=== PATIENT | female | born 1950 | race Caucasian/White ===

== ENCOUNTER 2024-03-03 08:57 | Inpatient (IN) ==
[2024-03-03 09:21] LABS: Basophils # (auto) 0.03 K/uL (0.00-0.20); Basophils % (auto) 0.4 %; Eosinophils # (auto) 0.32 K/uL (0.00-0.50); Eosinophils % (auto) 4.7 %; Hematocrit (blood only) 33.5 % (37.0-47.0); Hemoglobin 10.1 g/dl (12.0-16.0); Immature Granulocytes # (auto) 0.02 K/uL (0.01-0.20); Immature Granulocytes % (auto) 0.3 %; Lymphocytes # (auto) 1.62 K/uL (1.20-3.40); Lymphocytes % (auto) 23.8 %; Mean Corpuscular Hemoglobin 24.8 pg (25.0-34.0); Mean Corpuscular Hgb Conc 30.1 g/dL (32.0-36.0); Mean Corpuscular Volume 82.1 fL (80.0-100.0); Mean Platelet Volume 10.3 fL (9.4-12.4); Monocytes % (auto) 7.3 %; Neutrophils # (auto) 4.32 K/uL (1.40-6.50); Neutrophils % (auto) 63.5 %; Platelet Count 319 K/uL (130-400); RDW Coefficient of Variation 15.4 % (11.5-14.5); Red Blood Count 4.08 M/uL (4.20-5.40); White Blood Count 6.81 K/ul (4.8-10.8)
--- NOTE | 2024-03-03 09:28 | Emergency Department Note ---
Impression & Plan Unwitnessed fall, Recurrent falls, Compression fracture of T4 vertebra, Lower extremity edema ED Provider Note NAME: SWAPNIL HU AGE: 73 SEX: F : 1950 ARRIVES VIA: Ambulance INFORMANT: Patient ED PROVIDER(S): Ed Strickland MD CHIEF COMPLAINT: Recurrent falls, back pain PLAN: Disposition: Admit MEDICAL DECISION MAKING: The patient is a pleasant 73-year-old woman with a past medical history of hypertension, anxiety, chronic back pain/lumbar spinal stenosis, scoliosis of the thoracolumbar region, recurrent falls who presents to emergency department via EMS from her independent living facility after she was found on the ground outside of the shared laundry facilities this morning by another resident. Patient reports she recalls going to do laundry around 3 AM which is not atypical for her and wonders if her back pain flared causing her to collapse. She does not think she hit her head. She reports she has a history of recurrent falls for which she has followed up with with her PCP and had an MRI of her brain performed which demonstrated incidental meningioma but to her knowledge otherwise showed no acute findings. Patient reports no recent illness and denies fevers, chills, cough, congestion, GI or symptoms. On evaluation the patient is no distress, afebrile with stable vital signs. She appears clinically dry. She has no focal neurologic deficits. Head is atraumatic. She has no midline CTL spine tenderness palpation or step-offs though reports subjectively pain of her lower thoracic and lumbar region. Reflex within normal limits. There is no clonus. 1+ bilateral lower extremity edema. EKG without overt acute ischemia. CXR with vascular congestion and otherwise negative for acute cardiopulmonary process per my personal preliminary review/interpretation. WBC and platelets within normal limits. H/H similar to prior range values. Chemistry without metabolic acidosis. BUNs/creatinine is 29, consistent with patient's clinically dry appearance. LFTs unremarkable. CPK within normal limits. High-sensitivity troponin 9.0, within normal limits. Lipase is mildly above normal and nonspecific. TSH normal. UA without evidence of infection. CT of the head and CT of the head and neck and were negative for acute abnormalities. CT of the thoracic and lumbar spine demonstrates compression fracture of the superior endplate of T4 with 40% loss of height which appears new from December 02 but favor subacute fracture. There is no retropulsion or extension into the posterior elements. Given patient's recurrent falls and chronic back pain patient referred to hospitalist service for further management. Case was discussed with Dr. Boyer, [facility] hospitalist, who will evaluate the patient for admission. Further management per admitting team. Triage Nursing notes reviewed and agree them. Prior/external medical records reviewed Vital Signs: reviewed Differential diagnosis: Fracture, dislocation, contusion, intra-abdominal, pneumothorax, intrathoracic, intracranial, neurologic, compartment syndrome, rhabdomyolysis, as well as other pathologies. ER treatment provided: See below. Diagnostics interpreted by me: ECG: Normal sinus rhythm, 80 bpm, no ectopy, no overt ST ovation or depression, QTc 442, QRS 70. Cardiac Monitoring: An order for continuous cardiac monitoring was placed and demonstrated Normal sinus rhythm, 80 bpm, no ectopy Laboratory studies: See below Imaging studies: See below Consultation(s): Case was discussed with CYNTHIA Jackson hospitalist, who will evaluate the patient for admission. HPI: The patient is a pleasant 73-year-old woman with a past medical history of hypertension, anxiety, chronic back pain/lumbar spinal stenosis, scoliosis of the thoracolumbar region, recurrent falls who presents to emergency department via EMS from her independent living facility after she was found on the ground outside of the shared laundry facilities this morning by another resident. Patient reports she recalls going to do laundry around 3 AM which is not atypical for her and wonders if her back pain flared causing her to collapse. She does not think she hit her head. She reports she has a history of recurrent falls for which she has followed up with with her PCP and had an MRI of her brain performed which demonstrated incidental meningioma but to her knowledge otherwise showed no acute findings. Patient reports no recent illness and denies fevers, chills, cough, congestion, GI or symptoms. ROS: See above HPI for pertinent positives & negatives. A total of 10 systems reviewed and were otherwise negative. VITALS:See Below PHYSICAL EXAMINATION: GENERAL: Awake, alert, fatigued-appearing, in no distress HENT: Normocephalic, atraumatic. Oropharynx with dry mucous membranes and otherwise unremarkable. EYES: Normal conjunctiva. Sclera non-icteric. EOMI. No nystamgus. PEARRL. NECK: Supple. No nuchal rigidity. FROM. No JVD. No midline tenderness to palpation or step-offs. RESPIRATORY: Clear to auscultation. CARDIAC: Regular rate, normal rhythm. Extremities warm and well perfused. Pulses equal. ABDOMEN: Soft, non-distended. No tenderness to palpation. No rebound or guarding. No masses. MUSCULOSKELETAL: Chest examination reveals no tenderness. The back is symmetrical on inspection without obvious abnormality. No midline tenderness to palpation or step-offs. Subjective pain of the lower thoracic, lumbar region. There is no CVA tenderness to palpation. No joint edema. LOWER EXTREMITIES: Calves are equal size bilaterally and non-tender. No edema. No discoloration. NEURO: Normal sensorium. No sensory or motor deficits noted. SKIN: No rash or jaundice noted. Ed Strickland MD Past Med/Surg History Problem List (Updated 03/03/24 @ 21:17 by Ed Strickland MD) Unwitnessed fall (Acute) Weakness Compression fracture of T4 vertebra (Acute) Syncope Left leg cellulitis Anemia Recurrent falls (Acute) Orbital floor (blow-out) closed fracture Fracture of nasal bone with routine healing Back problem Arthritis Left elbow pain Scoliosis of thoracolumbar region due to degenerative disease of spine in adult Degenerative spondylolisthesis Lumbar spinal stenosis Neck Pain Lower extremity edema (Acute) Hypertension Anxiety and depression Back pain Medical History Kidney infection Bronchitis Surgical History H/O wrist surgery 2021 History of surgery on left wrist History of tubal ligation 1978 History of section 1982 History of tonsillectomy and adenoidectomy 1955 Family History Uncle Lung cancer Aunt Breast cancer Other COPD (chronic obstructive pulmonary disease) Denies family history of Ovarian cancer Prostate cancer Diabetes Myocardial infarction Colorectal cancer Stroke Social History Smoking Status: Current every day smoker Tobacco Type: Cigarettes Age Started Using Tobacco: 16; packs per day: 0.50; Cigarettes Per Day: 5; Second Hand Exposure: Yes; Do You Dip or Chew Tobacco: No; Tobacco Cessation Education Requested by Patient: No Hx Alcohol Use: Yes Alcohol type: beer and hard liquor Alcohol Intake Frequency: 2-3 x/Week Hx Substance Use: No Preferred Language: Niuean Communication Ability: Effective Visual Impairment: No Limitations Hearing Ability: Normal Crosstie Inspector Required: No Beliefs That Will Affect Care: None marital status: / Current Living Situation: Personal Care Facility Current Living Situation Comment: [facility] current occupational status: retired Other Information That Helps Us Care for You: No Feels Safe at Home: Yes Safety Concerns: Feels Safe At This Time Safety Concerns Comment: does not feel safe at her building due safety risks/fell on the ice Childhood Exposure to Second-Hand Smoke: No Diet: low salt and regular caffeine: No Dental Care, Regularly: No Physical Activity Frequency: Does not Exercise Seatbelt Use: always Sunscreen Use: No Allergies Allergies Allergy/AdvReac Type Severity Reaction Status Date / Time Sulfa (Sulfonamide Allergy Intermediate BUMPS ON Verified 01/25/24 13:36 Antibiotics) TONGUE hydrocodone AdvReac Intermediate Vomiting Verified 01/25/24 13:36 Home Meds Home Medications Medication Instructions Recorded Confirmed [id number] 250 1 tab PO UD 05/23/21 03/03/24 mg-250 mg-65 mg tablet (Excedrin Extra Strength) multivitamin (Multiple Vitamins 1 tab PO DAILY 04/01/22 03/03/24 tablet) naproxen sodium 220 mg tablet 220 - 440 mg PO BID PRN Pain 12/04/23 03/03/24 (Aleve) Previous Rx's Medication Instructions Recorded compr.stocking,knee,long,small #12 ea 04/01/22 paroxetine HCl 40 mg tablet 40 mg PO DAILY 90 days #90 tabs 11/30/23 bumetanide 0.5 mg tablet 0.5 mg PO DAILY PRN lower 12/19/23 extremity edema #30 tabs Results & Data (ED) Vital Signs Vital Signs - 24 hr 03/03/24 08:48 03/03/24 08:50 03/03/24 08:50 Temperature 36.8 C 36.8 C Temperature Source Oral Oral Pulse Rate 86 Pulse Rate [Apical] Respiratory Rate 16 Blood Pressure 146/94 H Blood Pressure [Left Arm] Blood Pressure Mean 111 Blood Pressure Mean [Left Arm] Pulse Oximetry 94 Oxygen Delivery Method Room Air Room Air Oxygen Flow Rate Sepsis Recent Fever Within 48 Hours No Sepsis New/Unexplained Change in Mental Status N/A Sepsis Action Taken by Nursing No Action Required 03/03/24 09:06 03/03/24 09:24 03/03/24 11:00 Temperature Temperature Source Pulse Rate 80 Pulse Rate [Apical] 63 Respiratory Rate 18 Blood Pressure Blood Pressure [Left Arm] 146/86 H Blood Pressure Mean Blood Pressure Mean [Left Arm] 106 Pulse Oximetry 92 96 Oxygen Delivery Method Nasal Cannula Oxygen Flow Rate 2 Sepsis Recent Fever Within 48 Hours Sepsis New/Unexplained Change in Mental Status Sepsis Action Taken by Nursing Laboratory Data 03/03/24 09:00 03/03/24 09:00 Lab Results 03/03/24 03/03/24 Range/Units 09:00 09:48 WBC 6.81 (4.8-10.8) K/ul RBC 4.08 L (4.20-5.40) M/uL Hgb 10.1 L (12.0-16.0) g/dl Hct 33.5 L (37.0-47.0) % MCV 82.1 (80.0-100.0) fL MCH 24.8 L (25.0-34.0) pg MCHC 30.1 L (32.0-36.0) g/dL RDW Std Deviation 46.0 (36.4-46.3) fL RDW Coeff of Dunia 15.4 H (11.5-14.5) % Plt Count 319 (130-400) K/uL MPV 10.3 (9.4-12.4) fL Immature Gran % (Auto) 0.3 % Neut % (Auto) 63.5 % Lymph % (Auto) 23.8 % [place] % (Auto) 7.3 % Eos % (Auto) 4.7 % Baso % (Auto) 0.4 % Neut # (Auto) 4.32 (1.40-6.50) K/uL Lymph # (Auto) 1.62 (1.20-3.40) K/uL [place] # (Auto) 0.50 (0.11-0.59) K/uL Eos # (Auto) 0.32 (0.00-0.50) K/uL Baso # (Auto) 0.03 (0.00-0.20) K/uL Immature Gran # (Auto) 0.02 (0.01-0.20) K/uL PT 10.3 (9.0-12.0) Seconds INR 0.9 (0.9-1.1) Sodium 142 (136-145) mmol/L Potassium 4.0 (3.5-5.1) mmol/L Chloride 109 H (98-107) mmol/L Carbon Dioxide 26 (21-32) mmol/L Anion Gap 7 (3-11) BUN 19 (6-23) mg/dl Creatinine 0.64 (0.6-1.2) mg/dl Est Cr Clr Drug Dosing 61.5 ml/min eGFR 92.10 BUN/Creatinine Ratio 29.7 H (10-20) Glucose 94 (70-99(Fasting)) mg/dl Calcium 9.1 (8.6-10.3) mg/dl Phosphorus 4.6 (2.5-4.9) mg/dl Magnesium 2.1 (1.7-2.4) mg/dl Total Bilirubin 0.3 (0.2-1.0) mg/dl AST 19 (13-39) U/L ALT 17 (7-52) U/L Alkaline Phosphatase 108 H (34-104) U/L Total Creatine Kinase 130 (26-192) U/L Troponin I High Sens 9.0 (0-14) pg/ml Total Protein 6.5 (6.0-8.3) gm/dl Albumin 3.8 (3.4-5.0) gm/dl Globulin 2.7 (2.5-4.0) gm/dl Albumin/Globulin Ratio 1.4 (0.9-2) Lipase 100 H (11-82) U/L TSH 0.610 (0.300-4.500) uIu/ml Urine Color Yellow Urine Appearance Clear (Clear) Urine pH 6.0 (4.5-7.5) Ur Specific [place] 1.020 (1.000-1.030) Urine Protein Negative (Negative) Urine Glucose (UA) Negative (Negative) Urine Ketones Negative (Negative) Urine Blood Negative (Negative) Urine Nitrite Negative (Negative) Urine Bilirubin Negative (Negative) Urine Urobilinogen Negative (Negative) Ur Leukocyte Esterase Negative (Negative) Administered Medications Acetaminophen (Acetaminophen 325 Mg Tab) 650 mg PO Q4H PRN PRN Reason: Pain or Fever Stop: 04/02/24 14:26 Last Admin: 03/03/24 20:22 Dose: 650 mg Documented By: ZO Paroxetine HCl (Paroxetine Hcl 20 Mg Tab) 40 mg PO HS NEHEMIAS Stop: 04/02/24 20:59 Last Admin: 03/03/24 20:22 Dose: 40 mg Documented By: ZO Discontinued Medications Sodium Chloride (Nss) 500 mls @ 999 mls/hr IV .Q31M ONE Stop: 03/03/24 09:54 Last Infusion: 03/03/24 10:23 Dose: Infused Documented By: Admin: 03/03/24 09:33 Dose: 999 mls/hr Documented By: DANA Acetaminophen (Ofirmev) 1,000 mg in 100 mls @ 400 mls/hr IV NOW STA Stop: 03/03/24 09:38 Last Infusion: 03/03/24 09:48 Dose: Infused Documented By: Admin: 03/03/24 09:33 Dose: 400 mls/hr Documented By: DANA Ioversol (Optiray 320 125ml) 119 ml IV ONCE ONE Stop: 03/03/24 10:22 Last Admin: 03/03/24 10:21 Dose: 119 ml Documented By: BARRON Imaging Data Radiologist's Impression: Chest X-Ray 03/03/24 09:06 XR chest 1V portable CLINICAL HISTORY: Chest pain, nonspecific COMPARISON STUDY: Chest CT December 03, 2023. FINDINGS: The patient is rotated. No pneumothorax or pleural effusion is present. There is pulmonary vascular congestion. No consolidation is present. Linear bibasilar densities favor atelectasis. The heart is at the upper limits of normal for size. IMPRESSION: 1. Pulmonary vascular congestion. 2. Linear bibasilar densities suggestive of atelectasis. ACT 112: Negative or not required by law. Electronically signed by: Miller Napier M.D. 03/03/2024 9:[address] 03/03/24 09:19 CT OF THE HEAD WITHOUT CONTRAST CLINICAL HISTORY: Syncope. Fall. COMPARISON STUDY: Head CT May 17, 2023. MRI of the brain January 23, 2024. CT DOSE: 1682.89 mGy.cm TECHNIQUE: Helical axial images of the head were obtained without IV contrast. Automated exposure control was utilized for the study. A dose lowering technique was utilized adhering to the principles of ALARA. FINDINGS: No acute intracranial hemorrhage, midline shift or mass effect is present. White matter hypodensities are unchanged and favor small vessel disease. A densely calcified 1.5 cm extra-axial lesion overlying the left frontal convexity is unchanged. This represents a meningioma. The ventricular system is unremarkable. The basal cisterns are patent. No extra-axial collections are present. There are no findings to suggest acute dural sinus thrombosis or acute territorial infarct. No significant calvarial abnormalities are present. Visualized portions of the sinuses and mastoid air cells are clear. IMPRESSION: 1. No acute intracranial findings. 2. No calvarial fractures. ACT 112: Negative or not required by law. Electronically signed by: Miller Napier M.D. 03/03/2024 10:21 AM Head CTA 03/03/24 09:24 CTA ANGIOGRAPHY OF THE HEAD CLINICAL HISTORY: syncope, fall COMPARISON STUDY: Head CT May 17, 2023. MRI of the brain January 23, 2024. TECHNIQUE: Helical axial images of the head were obtained following uneventful intravenous administration of 119 cc of Optiray. Sagittal and coronal reconstructions were viewed as well as maximal intensity projections on an independent 3-D workstation. Automated exposure control was utilized for the study. A dose lowering technique was utilized adhering to the principles of ALARA. FINDINGS: No acute intracranial hemorrhage, midline shift or mass effect is present. Ventricular system is unremarkable. White matter hypodensities favor small vessel disease. The bilateral M1, M2, A1 and A2 segments are patent. No vessel occlusion is identified within the anterior circulation. There is mild plaque within the bilateral cavernous carotids without stenosis. Posterior circulation is also intact. There is no intracranial aneurysm. IMPRESSION: No large vessel occlusion. No intracranial aneurysm. ACT 112: Negative or not required by law. Electronically signed by: Miller Napier M.D. 03/03/2024 10:[address] 03/03/24 09:24 CT OF THE LUMBAR SPINE CLINICAL HISTORY: syncope, fall, pain COMPARISON STUDY: Lumbar spine radiographs May 13, 2022. Lumbar spine MRI November 18, 2022. TECHNIQUE: Helical axial images of the lumbar spine were obtained. Sagittal and coronal reconstructions were viewed. Automated exposure control was utilized for the study. A dose lowering technique was utilized adhering to the principles of ALARA. FINDINGS: This exam is mildly compromised by artifact. No acute lumbar spine fractures are identified. Moderate lumbar spine dextroscoliosis is noted. There is 1.1 cm of anterolisthesis of L4 and L5 due to to facet arthrosis. This results in severe central canal stenosis, as shown on MRI of November 18, 2022. Central canal and neural foramen are suboptimally assessed given CT technique. There are no osseous lesions. Sacroiliac joints are intact. Paravertebral soft tissues are grossly unremarkable by CT. Severe multilevel facet arthrosis and moderate degenerative disc disease is present. IMPRESSION: 1. No acute lumbar spine fracture or subluxation. Exam mildly compromised by artifact. 2. Severe multilevel degenerative changes within the lumbar spine. Grade II anterolisthesis of L4 and L5 due to facet arthrosis with severe central canal stenosis at this level, as shown on previous MRI. 3. Moderate lumbar spine dextroscoliosis. ACT 112: Negative or not required by law. Electronically signed by: Miller Napier M.D. 03/03/2024 10:45 AM Neck CTA 03/03/24 09:24 CT ANGIOGRAPHY OF THE NECK WITH CONTRAST CLINICAL HISTORY: syncope, fall COMPARISON STUDY: Cervical spine MRI November 18, 2022. Cervical spine CT May 17, 2023. Technique: CT angiography of the carotid and vertebral arteries was obtained using Optir[employer] and 3D reconstruction on an independent workstation. NASCET criteria was utilized. Automated exposure control was utilized for the study. A dose lowering technique was utilized adhering to the principles of ALARA. Findings: There are no acute cervical spine fractures. Multilevel degenerative disc disease and facet arthrosis within the cervical spine is noted. There is 40 % loss of vertebral body of T4, involving the superior endplate. This is new since chest CT of December 03, 2023. Associated sclerosis is present. No extension into the posterior elements is noted. There is no retropulsion. The bilateral common carotid, cervical internal carotid and vertebral arteries are patent. There is no stenosis or dissection within these vessels. There is moderate atherosclerotic plaque within the aortic arch. There is mild plaque within the proximal bilateral cervical internal carotid arteries. There is moderate extrinsic narrowing of the left vertebral artery due to osteophytes. IMPRESSION: 1. No stenosis or dissection within the bilateral common carotid, cervical internal carotid or vertebral arteries. 2. No cervical spine fractures. 3. Compression fracture of T4 with 40% loss of vertebral body height. This is new since CT of December 03, 2023. This likely reflects a subacute fracture although an acute fracture could appear similar. No retropulsion. No extension into the posterior elements. ACT 112: Negative or not required by law. Electronically signed by: Miller Napier M.D. 03/03/2024 10:[address] 03/03/24 09:24 CT OF THE THORACIC SPINE CLINICAL HISTORY: syncope, fall, pain COMPARISON STUDY: Chest CT December 03, 2023. TECHNIQUE: Helical axial images of the thoracic spine were obtained. Sagittal and coronal reconstructions were viewed. Automated exposure control was utilized for the study. A dose lowering technique was utilized adhering to the principles of ALARA. FINDINGS: A compression fracture of the superior plate of T4 is new since chest CT of December 13, 2023. This 40% loss of vertebral body height. There is no retropulsion or extension into the posterior elements. No additional thoracic spine fractures are present. Moderate multilevel degenerative disc disease is present. There are no osseous lesions. Emphysema is incidentally noted within visualized portions of the lungs. IMPRESSION: 1. Compression fracture of the superior endplate of T4 40% loss of vertebral body height. This is new since CT of December 03, 2023. No retropulsion. No extension into the posterior elements. The appearance favors a subacute fracture although an acute fracture could appear similar. 2. No additional thoracic spine fractures. 3. Moderate multilevel degenerative changes within the thoracic spine. ACT 112: Negative or not required by law. Electronically signed by: Miller Napier M.D. 03/03/2024 10:40 AM Discharge Plan Visit Data Chief Complaint: Syncope Stated Complaint: SYNCOPE, FALL ED Provider: Ed Strickland Discharge Problem: Unwitnessed fall, Recurrent falls, Compression fracture of T4 vertebra, Lower extremity edema Patient Disposition: Admitted As Inpatient Discharge Instructions Interventions: ED Discharge Assessment Last Done: 03/03/24 13:48 Discharge Problem: Compression fracture of T4 vertebra Qualifiers: Encounter type: initial encounter Qualified Code(s): S22.040A - Wedge compression fracture of fourth thoracic vertebra, initial encounter for closed fracture
[2024-03-03] MEDS: ACETAMINOPHEN 1,000 MG/100 ML VIAL IV STA (09:33)
[2024-03-03] MEDS: SODIUM CHLORIDE 0.9% 500 ML IV ONE (09:33)
[2024-03-03 09:38] LABS: Albumin Globulin Ratio 1.4 (0.9-2); Albumin Level 3.8 gm/dl (3.4-5.0); BUN Creatinine Ratio 29.7 (10-20); Bilirubin,Total 0.3 mg/dl (0.2-1.0); Calcium 9.1 mg/dl (8.6-10.3); Creatinine Clr Calc Pharmacy 61.5 ml/min; Globulin 2.7 gm/dl (2.5-4.0); Magnesium 2.1 mg/dl (1.7-2.4); Phosphorus 4.6 mg/dl (2.5-4.9); Total Protein 6.5 gm/dl (6.0-8.3)
--- NOTE | 2024-03-03 09:41 | XRay Report ---
XR chest 1V portable CLINICAL HISTORY: Chest pain, nonspecific COMPARISON STUDY: Chest CT December 03, 2023. FINDINGS: The patient is rotated. No pneumothorax or pleural effusion is present. There is pulmonary vascular congestion. No consolidation is present. Linear bibasilar densities favor atelectasis. The h eart is at the upper limits of normal for size. IMPRESSION: 1. Pulmonary vascular congestion. 2. Linear bibasilar densities suggestive of atelectasis. ACT 112: Negative or not required by law. Electronically signed by: Miller Napier M.D. 03/03/2024 9:39 AM
[2024-03-03 09:47] LABS: INR 0.9 (0.9-1.1); Prothrombin Time 10.3 Seconds (9.0-12.0)
[2024-03-03 09:54] LABS: Thyroid Stimulating Hormone 0.61 uIu/ml (0.300-4.500)
[2024-03-03 10:12] LABS: Appearance Urine Clear (Clear); Bilirubin Urine Negative (Negative); Blood Urine Negative (Negative); Color Urine Yellow; Glucose Urine UA Negative (Negative); Ketones Urine Negative (Negative); Leukocyte Esterase Urine Negative (Negative); Nitrite Urine Negative (Negative); Protein Urine Negative (Negative); Urobilinogen Urine Negative (Negative)
[2024-03-03] MEDS: OPTIRAY 320 125ml IV ONE (10:21)
--- NOTE | 2024-03-03 10:23 | CT Scan Report ---
CT OF THE HEAD WITHOUT CONTRAST CLINICAL HISTORY: Syncope. Fall. COMPARISON STUDY: Head CT May 17, 2023. MRI of the brain January 23, 2024. CT DOSE: 1682.89 mGy.cm TECHNIQUE: Helical axial images of the head were obtained without IV contrast. Automated exposure con trol was utilized for the study. A dose lowering technique was utilized adhering to the principles o f ALARA. FINDINGS: No acute intracranial hemorrhage, midline shift or mass effect is present. White matter hyp odensities are unchanged and favor small vessel disease. A densely calcified 1.5 cm extra-axial lesio n overlying the left frontal convexity is unchanged. This represents a meningioma. The ventricular sy stem is unremarkable. The basal cisterns are patent. No extra-axial collections are present. There ar e no findings to suggest acute dural sinus thrombosis or acute territorial infarct. No significant ca lvarial abnormalities are present. Visualized portions of the sinuses and mastoid air cells are clear . IMPRESSION: 1. No acute intracranial findings. 2. No calvarial fractures. ACT 112: Negative or not required by law. Electronically signed by: Miller Napier M.D. 03/03/2024 10:21 AM
--- NOTE | 2024-03-03 10:31 | CT Scan Report ---
CTA ANGIOGRAPHY OF THE HEAD CLINICAL HISTORY: syncope, fall COMPARISON STUDY: Head CT May 17, 2023. MRI of the brain January 23, 2024. TECHNIQUE: Helical axial images of the head were obtained following uneventful intravenous administr ation of 119 cc of Optiray. Sagittal and coronal reconstructions were viewed as well as maximal inten sity projections on an independent 3-D workstation. Automated exposure control was utilized for the study. A dose lowering technique was utilized adhering to the principles of ALARA. FINDINGS: No acute intracranial hemorrhage, midline shift or mass effect is present. Ventricular syst em is unremarkable. White matter hypodensities favor small vessel disease. The bilateral M1, M2, A1 a nd A2 segments are patent. No vessel occlusion is identified within the anterior circulation. There i s mild plaque within the bilateral cavernous carotids without stenosis. Posterior circulation is also intact. There is no intracranial aneurysm. IMPRESSION: No large vessel occlusion. No intracranial aneurysm. ACT 112: Negative or not required by law. Electronically signed by: Miller Napier M.D. 03/03/2024 10:29 AM
--- NOTE | 2024-03-03 10:39 | CT Scan Report ---
CT ANGIOGRAPHY OF THE NECK WITH CONTRAST CLINICAL HISTORY: syncope, fall COMPARISON STUDY: Cervical spine MRI November 18, 2022. Cervical spine CT May 17, 2023. Technique: CT angiography of the carotid and vertebral arteries was obtained using Optir[employer] and 3D rec onstruction on an independent workstation. NASCET criteria was utilized. Automated exposure control was utilized for the study. A dose lowering technique was utilized adhering to the principles of ALA RA. Findings: There are no acute cervical spine fractures. Multilevel degenerative disc disease and facet arthrosis within the cervical spine is noted. There is 40 % loss of vertebral body of T4, involving the superior endplate. This is new since chest CT of December 03, 2023. Associated sclerosis is presen t. No extension into the posterior elements is noted. There is no retropulsion. The bilateral common carotid, cervical internal carotid and vertebral arteries are patent. There is no stenosis or dissect ion within these vessels. There is moderate atherosclerotic plaque within the aortic arch. There is m ild plaque within the proximal bilateral cervical internal carotid arteries. There is moderate extrin sic narrowing of the left vertebral artery due to osteophytes. IMPRESSION: 1. No stenosis or dissection within the bilateral common carotid, cervical internal carotid or verteb ral arteries. 2. No cervical spine fractures. 3. Compression fracture of T4 with 40% loss of vertebral body height. This is new since CT of December 03, 2023. This likely reflects a subacute fracture although an acute fracture could appear similar. N o retropulsion. No extension into the posterior elements. ACT 112: Negative or not required by law. Electronically signed by: Miller Napier M.D. 03/03/2024 10:37 AM
--- NOTE | 2024-03-03 10:43 | CT Scan Report ---
CT OF THE THORACIC SPINE CLINICAL HISTORY: syncope, fall, pain COMPARISON STUDY: Chest CT December 03, 2023. TECHNIQUE: Helical axial images of the thoracic spine were obtained. Sagittal and coronal reconstru ctions were viewed. Automated exposure control was utilized for the study. A dose lowering techniqu e was utilized adhering to the principles of ALARA. FINDINGS: A compression fracture of the superior plate of T4 is new since chest CT of December 13, 2023 . This 40% loss of vertebral body height. There is no retropulsion or extension into the posterior el ements. No additional thoracic spine fractures are present. Moderate multilevel degenerative disc dis ease is present. There are no osseous lesions. Emphysema is incidentally noted within visualized port ions of the lungs. IMPRESSION: 1. Compression fracture of the superior endplate of T4 40% loss of vertebral body height. This is new since CT of December 03, 2023. No retropulsion. No extension into the posterior elements. The appearan ce favors a subacute fracture although an acute fracture could appear similar. 2. No additional thoracic spine fractures. 3. Moderate multilevel degenerative changes within the thoracic spine. ACT 112: Negative or not required by law. Electronically signed by: Miller Napier M.D. 03/03/2024 10:40 AM
--- NOTE | 2024-03-03 10:47 | CT Scan Report ---
CT OF THE LUMBAR SPINE CLINICAL HISTORY: syncope, fall, pain COMPARISON STUDY: Lumbar spine radiographs May 13, 2022. Lumbar spine MRI November 18, 2022. TECHNIQUE: Helical axial images of the lumbar spine were obtained. Sagittal and coronal reconstruct ions were viewed. Automated exposure control was utilized for the study. A dose lowering technique was utilized adhering to the principles of ALARA. FINDINGS: This exam is mildly compromised by artifact. No acute lumbar spine fractures are identified . Moderate lumbar spine dextroscoliosis is noted. There is 1.1 cm of anterolisthesis of L4 and L5 due to to facet arthrosis. This results in severe central canal stenosis, as shown on MRI of November 18. Central canal and neural foramen are suboptimally assessed given CT technique. There are no osseo us lesions. Sacroiliac joints are intact. Paravertebral soft tissues are grossly unremarkable by CT. Severe multilevel facet arthrosis and moderate degenerative disc disease is present. IMPRESSION: 1. No acute lumbar spine fracture or subluxation. Exam mildly compromised by artifact. 2. Severe multilevel degenerative changes within the lumbar spine. Grade II anterolisthesis of L4 and L5 due to facet arthrosis with severe central canal stenosis at this level, as shown on previous MRI . 3. Moderate lumbar spine dextroscoliosis. ACT 112: Negative or not required by law. Electronically signed by: Miller Napier M.D. 03/03/2024 10:45 AM
--- NOTE | 2024-03-03 11:05 | History & Physical Report ---
Date of Service March 03, 2024 Assessment & Plan (1) Unwitnessed fall: Plan: Secondary to syncope vs due to chronic weakness/back pain - on ground ~ 5 hours, CK negative - EKG NSR - CXR, head CT, head CTA negative - Thoracic spine CT showed compression fx of T4; see below - consult ortho spine placed - monitor on telemetry With negative head CTs and no strokelike symptoms, will defer stroke workup this time. With EKG NSR, no abnormalities on telemetry, no cardiac symptoms, will defer cardiac workup at this time although monitor on telemetry. Hypoxia: attempt to wean off oxygen as tolerated (2) Compression fracture of T4 vertebra: Plan: - Subacute T4 compression fracture seen on thoracic spine CT after an unwitnessed fall - Consult orthospine as stated above (3) Weakness: Plan: Chronic - Vit D with AM labs - PT/OT consulted (4) Lumbar spinal stenosis: Plan: - seen on MRI October 2023 - severe lumbar stenosis with degenerative spinal thesis at L4/L5 level, central stenosis at L3/L4 - had appointment with Dr. Read who recommended pain management and that patient would be a good surgical candidate with smoking cessation - with poor therapeutic alliance - consult to Dr. Barba in AM (5) Hypertension: Plan: chronic, stable Patient not on any medications at home (6) Anemia: Plan: Appears chronic - microcytic hypochromic - Hgb 10.1 - iron panel, B12, folate in AM Plan Chronic stable diagnoses: anxiety/depression - continue paroxetine VTE ppx: SCDs Diet: regular Code status: DNR/DNI Dispo: med tele Admission and Anticipated Discharge Date Admission Date: 03/03/24 History of Present Illness Chief Complaint: syncope Primary Care Provider: Bill Stanton DO Patient is a 73-year-old female with a past medical history of hypertension, lumbar stenosis, anxiety, frequent falls, and recent cellulitis treated with Keflex and doxycycline. She presents today from [facility], [place] after a fall. Patient stated that she does her laundry at about 3 AM, when she went down to do her laundry she remembers taking a down, but then does not recall what happened next. She was found laying down in the hallway in front of the elevator with her walker and dried clothes hanging from her walker. She stated that she does not remember falling, she woke up to her neighbor saying her name and felt tired and pain. She stated that the pain is similar to her chronic back pain that she experiences. Patient denies fever, chills, headache, dizziness, lightheadedness, vision changes, rhinorrhea, sore throat, cough, sputum production, dyspnea, dyspnea on exertion, chest pain, abdominal pain, nausea, vomiting, diarrhea, dysuria, hematuria, edema. She stated that she has chronic constipation. She also often has some numbness in her bilateral feet, likely due to the lumbar stenosis, although sensory exam WNL on admission. Her recent cellulitis has drastically improved as per patient. She stated that she is found multiple times in the past, with wrist and arm fractures. She has never gone to a short-term rehab facility. She smokes 5 to 6 cigarettes/day and has for most of her life. She drinks 2-3 alcoholic beverages a week. She resides at [facility]. She does not have a written POA but wishes for it to be her neighbor, Nicolle. She does have a son who does not live in the area, she is currently not speaking with him. She wishes to be DNR/DNI at this time, no written medical living will. She denies past history of DM, cancer, VTE, kidney disease. She does not use oxygen at baseline. She only takes paroxetine at home before bed, she cannot remember if she took it last night but she may have, will resume tonight. She did have an MRI in October showing lumbar stenosis. She followed up with spine surgery at this time who recommended surgery if she quit smoking. She is interested in what spine surgery has to say, but would like to hear a another medical opinion a different spinal surgeon. Allergies Allergy/AdvReac Type Severity Reaction Status Date / Time Sulfa (Sulfonamide Allergy Intermediate BUMPS ON Verified 01/25/24 13:36 Antibiotics) TONGUE hydrocodone AdvReac Intermediate Vomiting Verified 01/25/24 13:36 Home Medications Medication Instructions Recorded Confirmed Type [id number]-pcttinntjgtex-[id number] 250 1 tab PO UD 05/23/21 03/03/24 History mg-250 mg-65 mg tablet (Excedrin Extra Strength) compr.stocking,knee,long,small #12 ea 04/01/22 12/19/23 Rx multivitamin (Multiple Vitamins 1 tab PO DAILY 04/01/22 03/03/24 History tablet) paroxetine HCl 40 mg tablet 40 mg PO DAILY 90 days #90 tabs 11/30/23 03/03/24 Rx naproxen sodium 220 mg tablet 220 - 440 mg PO BID PRN Pain 12/04/23 03/03/24 History (Aleve) bumetanide 0.5 mg tablet 0.5 mg PO DAILY PRN lower 12/19/23 03/03/24 Rx extremity edema #30 tabs Past Med/Surg History Problem List (Updated 03/03/24 @ 12:12 by Prema Holguin PA-C) Unwitnessed fall Weakness Compression fracture of T4 vertebra Syncope Left leg cellulitis Anemia Recurrent falls (Acute) Orbital floor (blow-out) closed fracture Fracture of nasal bone with routine healing Back problem Arthritis Left elbow pain Scoliosis of thoracolumbar region due to degenerative disease of spine in adult Degenerative spondylolisthesis Lumbar spinal stenosis Neck Pain Lower extremity edema Hypertension Anxiety and depression Back pain Medical History Kidney infection Bronchitis Surgical History H/O wrist surgery 2021 History of surgery on left wrist History of tubal ligation 1978 History of section 1982 History of tonsillectomy and adenoidectomy 1955 Family History Uncle Lung cancer Aunt Breast cancer Other COPD (chronic obstructive pulmonary disease) Denies family history of Ovarian cancer Prostate cancer Diabetes Myocardial infarction Colorectal cancer Stroke Social History Smoking Status: Current every day smoker Tobacco Type: Cigarettes Age Started Using Tobacco: 16; packs per day: 0.50; Second Hand Exposure: No; Hx Alcohol Use: Yes Alcohol type: hard liquor Alcohol Intake Frequency: 2-3 x/Week Hx Substance Use: No Preferred Language: Malagasy Communication Ability: Effective Visual Impairment: No Limitations Hearing Ability: Normal Loan Associate Required: No marital status: / Current Living Situation: Alone current occupational status: retired Feels Safe at Home: Yes Safety Concerns Comment: does not feel safe at her building due safety risks/fell on the ice Childhood Exposure to Second-Hand Smoke: No Diet: low salt and regular caffeine: No Dental Care, Regularly: No Physical Activity Frequency: Does not Exercise Seatbelt Use: always Sunscreen Use: No Review of Systems Review of Systems: See HPI Physical Exam Physical Exam: The patient is awake, alert and oriented 3, well developed and well nourished, normocephalic and atraumatic, in no acute distress. Non-toxic appearing. HEENT- EOMI, mucous membranes moist. Hearing grossly intact. Heart-normal S1 and S2. No murmurs, rubs or gallops. Lungs-clear bilaterally, no respiratory distress, no accessory muscle use. 2L O2 nasal canula. Abdomen-normal bowel sounds and soft. No ascites noted. Non-tender. MSK - strength 5/5 bilaterally, tenderness to palpation of lower spine, patient states is chronic. Extremities- no clubbing, cyanosis, or edema. Dry erythematous skin of BL LE. Rheumatologic-normal range of motion. Psychiatric-normal affect. Musculoskeletal: no cyanosis or clubbing, extremities motor strength 5/5 Neurologic: PERRL, EOMI, accommodation nl, no face palsy, no dysarthria CN's II-XI intact bilaterally Motor/Sensory: no sensory deficit Results & Data Results & Data Vital Signs (Past 12 Hours) Vital Signs Temp Pulse Pulse Resp BP BP Pulse Ox 03/03/24 11:00 63 18 146/86 H 96 03/03/24 09:24 80 03/03/24 09:06 92 03/03/24 08:50 36.8 C 03/03/24 08:50 03/03/24 08:48 36.8 C 86 16 146/94 H 94 O2 Del Method O2 Flow Rate 03/03/24 11:00 Nasal Cannula 2 03/03/24 09:24 03/03/24 09:06 03/03/24 08:50 03/03/24 08:50 Room Air 03/03/24 08:48 Room Air Code Status & VTE Plan Code Status DNR/DNI VTE Prophylaxis Plan VTE Prophylaxis will be ordered: Yes Supervising Physician Co-Signing Physician Notes Patient seen and examined, chart reviewed, case discussed with Prema Holguin PA-C and I agree with the assessment and plan as above except as otherwise noted Labs and images reviewed Went to do laundry like usual 2-3am. Hernándezestephania piñaot remember passing out, just remembers her chronic back pain being worse and then waking up on the floor. No vsion change. No focal weakness. No post ictal confusion. Chronically weak and progressive with multiple falls. See did see Dr. Jacek dey a few weeks ago but did not have a good therapeutic alliance at that time, he is potentially today following up in surgery but would like to meet with Dr. Barba or Dr. Anaya. CM consulted to help facilitate, no indication for emergent operative intervention at time of admission.No critical LE strength loss or sensory loss at time of admission.. PT/OT, spine follow-up, and management as above. PG Care Time/CCT Total # of Minutes Spent Total Time Spent with Patient: Total time spent is greater than 50% in coordination of care (as documented) at patient's floor/unit and/or counseling patient: Coding Level of Care Code 37996 INT INP/OBS CARE 3/75MIN Diagnoses Unwitnessed fall R29.6 Compression fracture of T4 vertebra S22.040A Weakness R53.1 Lumbar spinal stenosis M48.061 Hypertension I10 Anemia D64.9
[2024-03-03] MEDS ORDERED: DOCUSATE SODIUM 100 MG CAP PO PRN (14:27)
[2024-03-03] MEDS: ACETAMINOPHEN 325 MG TAB PO PRN (20:22)
[2024-03-03] MEDS: PARoxetine HCL 20 MG TAB PO SCH (20:22)
[2024-03-04 06:28] LABS: Hematocrit (blood only) 31.6 % (37.0-47.0); Hemoglobin 9.6 g/dl (12.0-16.0); Mean Corpuscular Hemoglobin 24.9 pg (25.0-34.0); Mean Corpuscular Hgb Conc 30.4 g/dL (32.0-36.0); Mean Corpuscular Volume 82.1 fL (80.0-100.0); Mean Platelet Volume 9.8 fL (9.4-12.4); Platelet Count 273 K/uL (130-400); RDW Coefficient of Variation 15.5 % (11.5-14.5); RDW Standard Deviation 46.4 fL (36.4-46.3); Red Blood Count 3.85 M/uL (4.20-5.40); White Blood Count 6.07 K/ul (4.8-10.8)
[2024-03-04 06:35] LABS: BUN Creatinine Ratio 24.1 (10-20); Calcium 8.1 mg/dl (8.6-10.3); Creatinine Clr Calc Pharmacy 48.9 ml/min; Potassium 3.9 mmol/L (3.5-5.1)
[2024-03-04 06:54] LABS: Ferritin 22.4 ng/ml (8-388)
[2024-03-04 07:49] LABS: Folate (Folic Acid),Ser orPlas 5.81 ng/ml (>5.38)
--- NOTE | 2024-03-04 09:30 | Orthopedic Consultation ---
Date of Consultation March 04, 2024 Assessment & Plan (1) Neurogenic claudication due to lumbar spinal stenosis: Assessment lumbar spinal stenosis with spondylolisthesis. Plan at this time I would like to update an MRI of the lumbar spine. I have explained to the patient she does have evidence of instability L4-L5 with severe spinal stenosis which undoubtedly is causing her back pain and limitation with ambulation and contributing to her stooped posture. Will obtain an MRI for final recommendat ions. Surgery would be considerable nature requiring at least a lumbar decompression fusion at L4-L5 possibly L5-S1. We would want to maximize her health status before any surgical procedure. History of Present Illness Reason for Consultation: Chronic back pain Attending Physician: Jesus Hyunh History of Present Illness This is a very pleasant 73-year-old female presents with a history of falls. She describes chronic persistent back pain with radiation into the buttocks. She states she is required a walker for well over a year to help her ambulate. She notes of severe stooped posture with ambulation because of the pain. She describes her multiple falls secondary to her legs giving way. She denies any thoracic or upper thoracic discomfort at this time. Allergies Allergy/AdvReac Type Severity Reaction Status Date / Time Sulfa (Sulfonamide Allergy Intermediate BUMPS ON Verified 01/25/24 13:36 Antibiotics) TONGUE hydrocodone AdvReac Intermediate Vomiting Verified 01/25/24 13:36 Home Medications Medication Instructions Recorded Confirmed Type ultfmdj-toubfuutughwm-nbmqcsmk 250 1 tab PO UD 05/23/21 03/03/24 History mg-250 mg-65 mg tablet (Excedrin Extra Strength) compr.stocking,knee,long,small #12 ea 04/01/22 12/19/23 Rx multivitamin (Multiple Vitamins 1 tab PO DAILY 04/01/22 03/03/24 History tablet) paroxetine HCl 40 mg tablet 40 mg PO DAILY 90 days #90 tabs 11/30/23 03/03/24 Rx naproxen sodium 220 mg tablet 220 - 440 mg PO BID PRN Pain 12/04/23 03/03/24 History (Aleve) bumetanide 0.5 mg tablet 0.5 mg PO DAILY PRN lower 12/19/23 03/03/24 Rx extremity edema #30 tabs Patient History Medical History Kidney infection Bronchitis Surgical History H/O wrist surgery 2021 History of surgery on left wrist History of tubal ligation 1978 History of section 1982 History of tonsillectomy and adenoidectomy 1955 Family History Uncle Lung cancer Aunt Breast cancer Other COPD (chronic obstructive pulmonary disease) Denies family history of Ovarian cancer Prostate cancer Diabetes Myocardial infarction Colorectal cancer Stroke Social History Smoking Status: Current every day smoker Tobacco Type: Cigarettes Age Started Using Tobacco: 16; packs per day: 0.50; Cigarettes Per Day: 5; Second Hand Exposure: Yes; Do You Dip or Chew Tobacco: No; Tobacco Cessation Education Requested by Patient: No Hx Alcohol Use: Yes Alcohol type: beer and hard liquor Alcohol Intake Frequency: 2-3 x/Week Hx Substance Use: No Preferred Language: Kazakh Communication Ability: Effective Visual Impairment: No Limitations Hearing Ability: Normal Supervisor Lead [employer] Required: No Beliefs That Will Affect Care: None marital status: / Current Living Situation: Personal Care Facility Current Living Situation Comment: [facility] current occupational status: retired Other Information That Helps Us Care for You: No Feels Safe at Home: Yes Safety Concerns: Feels Safe At This Time Safety Concerns Comment: does not feel safe at her building due safety risks/fell on the ice Childhood Exposure to Second-Hand Smoke: No Diet: low salt and regular caffeine: No Dental Care, Regularly: No Physical Activity Frequency: Does not Exercise Seatbelt Use: always Sunscreen Use: No Physical Exam Physical Exam: On exam she symptom bed. She has no pain to palp percussion or palpation of the thoracolumbar spine. She has a 4/5 left dorsiflexion plantarflexion to a 4+/5 on the right. Quadriceps are 4/5 bilaterally. Sensory is intact. D10 reflexes diminished. Results & Data Vital Signs (Past 12 Hours) Vital Signs Temp Pulse Pulse Resp BP BP Pulse Ox 03/04/24 07:29 36.4 C L 70 18 128/68 91 03/04/24 07:13 72 03/04/24 03:52 36.5 C 75 16 137/75 91 03/04/24 00:33 03/03/24 22:59 36.6 C 89 18 110/50 L 93 03/03/24 22:00 98 H O2 Del Method 03/04/24 07:29 Room Air 03/04/24 07:13 03/04/24 03:52 Room Air 03/04/24 00:33 Room Air 03/03/24 22:59 Room Air 03/03/24 22:00
[2024-03-04] MEDS: ERGOCALCIFEROL 1250 MCG (50,000 UNITS) CAP PO SCH (10:32)
[2024-03-04] MEDS: IRON SUCROSE 300 MG in SODIUM CHLORIDE 0.9% 250 ML IV ONE (10:32)
[2024-03-04] MEDS ORDERED: oxyCODONE HCL IR 5 MG TAB (IMMEDIATE RELEASE) PO PRN (10:51)
[2024-03-04] MEDS: ACETAMINOPHEN 500 MG TAB PO SCH (11:35)
--- NOTE | 2024-03-04 14:41 | Magnetic Resonance Report ---
MR lumbar spine wo con CLINICAL HISTORY: 73 years-old Female with back and leg pain. Chronic low back pain. COMPARISON: CT lumbar spine 03/03/2024, MRI lumbar spine 11/18/2022. TECHNIQUE: Multiplanar, multi sequence MRI of the lumbar spine was performed without intravenous cont rast. FINDINGS: Scoliotic curvature of the lumbar spine redemonstrated. Motion degraded exam. Conus medulla ris terminates at L1-L2. Normal signal within the imaged thoracic spinal cord. Small T2 hyperintense foci of the kidneys redemonstrated suggestive of probable cysts. There is trace fluid signal within t he L4-L5 disc space. 10 mm anterolisthesis L4 on L5 is unchanged. Severe disc space narrowing at this level with [id number] marrow edema/Modic type I endplate degeneration which is similar to prio r. Additionally, there is trace fluid signal within the L1-L2 disc space which is new from prior with mild Modic type I endplate degeneration/edema. There is partially imaged marrow edema at S2-S3 with probable acute nondisplaced fractures. No acute fracture or subluxation identified within the lumbar spine. There is moderate to severe multilevel intervertebral disc space narrowing with moderate spondylotic spurring and severe facet arthrosis again noted. T12-L1: Posterior disc osteophyte complex with moderate facet arthrosis. Right paracentral disc prot rusion measuring 10 x 5 x 8 mm on image 1 series 9 is unchanged from prior. Mild bilateral foraminal narrowing is unchanged. Mild central canal stenosis with AP dimension of the thecal sac measuring 9 m m. L1-L2: Small posterior disc osteophyte complex with severe facet arthrosis. Minimal central canal st enosis with AP dimension of the thecal sac measuring 9 mm. There is unchanged mild right with moderat e to severe left neuroforaminal narrowing. L2-L3: Mild to moderate intervertebral disc space narrowing with small posterior annular disc bulge, eccentric to the left lateral recess. Ligamentum flavum thickening with moderate facet arthrosis. Mo derate central canal stenosis with AP dimension of the thecal sac measuring 7 mm. Moderate left with [id number] right foraminal narrowing. L3-L4: Small posterior annular disc bulge. Ligamentum flavum thickening with severe facet arthrosis. Unchanged severe central canal stenosis with AP dimension of the thecal sac measuring 5 mm. Moderate bilateral foraminal narrowing. L4-L5: Grade 2 anterolisthesis. Posterior disc space uncovering. Spondylotic spurring with circumfer ential annular disc bulging. Ligamentum flavum thickening with severe facet arthrosis. Severe central canal stenosis with AP dimension of the thecal sac measuring 2 mm. Severe bilateral lateral recess n arrowing. Moderate to severe right with moderate left foraminal narrowing is unchanged. L5-S1: Mild to moderate intervertebral disc space narrowing. Tiny posterior annular disc bulge with moderate facet arthrosis. No central canal or foraminal narrowing. IMPRESSION: 1. Partially imaged marrow edema at S2 and S3 suggestive of acute or subacute nondisplaced sacral fra ctures. 2. No acute fracture or subluxation of the lumbar spine. 3. Unchanged grade II anterolisthesis L4 on L5. 4. Scoliosis with moderate to advanced degenerative changes of the lumbar spine redemonstrated result ing in multilevel central canal and foraminal narrowing. 5. Fluid signal within the L1-L2 and L4-L5 disc spaces is new from the prior MRI and favored to be on a degenerative basis. Early changes of acute discitis/osteomyelitis could appear similarly however c onsidered less likely. ACT 112: Negative or not required by law. The above report was generated using voice recognition software. It may contain grammatical, syntax o r spelling errors. Dictated: 03/04/2024 2:02 PM Transcribed: 03/04/2024 2:30 PM Otilio [id number] CALVIN_Cong [id number] Electronically signed by: Chet Patterson M.D. 03/04/2024 2:40 PM
--- NOTE | 2024-03-04 16:14 | Hospitalist Progress Note ---
Date of Service March 04, 2024 Assessment & Plan (1) Unwitnessed fall: Plan: Secondary to syncope vs due to chronic weakness/back pain - on ground ~ 5 hours, CK negative - EKG NSR - CXR, head CT, head CTA negative - Thoracic spine CT showed compression fx of T4; see below -Tylenol 1000mg q8h -Tramadol prn for breakthrough pain. - consult ortho spine reviewed 03/04 recommending lumbar MRI consider surgical correction -Lumbar MRI reviewed 03/04: partially imaged marrow edema at S2 and S3 suggestive of acute or subacute nondisplaced sacral fractures. unchanged grade II anterolisthesis L4 on L4. Scoliosis w/ mod to advanced degenerative changes of lumbar spine re-demonstrated resulting in multi-level central canal and foraminal narrowing. fluid signal within L1-L2 and L4-L5 disc spaces new from prior MRI. -CBC reviewed 03/04: hgb 9.6, appears chronic. WBC WNL. -BMP reviewed 03/04: stable. -Vitamin B 12 reviewed 03/04: 188 could consider B 12 supplement outpatient as this is low normal range. -Vitamin D reviewed 03/04: < 7 started on supplementation -Iron panel reviewed 03/04: Fe 20, transferrin 7% s/p IV Iron recommend Ferrous Sulfate 325mg MWF outpatient. consider GI referral for colonoscopy for further eval of iron def anemia. -PT awaiting final recommendations pending Dr. Barba's plan -OT recommending rehab. AM CBC, BMP. (2) Compression fracture of T4 vertebra: Plan: - Subacute T4 compression fracture seen on thoracic spine CT after an unwitnessed fall - Consult orthospine as stated above see plan above. (3) Anemia: Plan: Appears chronic - microcytic hypochromic - Hgb 9.6 -see plan above. Plan Chronic stable diagnoses: anxiety/depression - continue paroxetine VTE ppx: SCDs Diet: regular Code status: DNR/DNI Dispo: med tele Admission and Anticipated Discharge Date Admission Date: March 03, 2024 Subjective Patient seen and examined this morning. patient reports pain in her lower back. states she has had multiple falls recently. Denies light headedness prior to falls. She states she loses her balance easily. Denies any additional complaints. Physical Exam 2 Constitutional: WD/WN, vitals as above Eyes: PERRL, conjunctivae normal, anicteric sclerae Respiratory: breathing unlabored Cardiovascular: well perfused Psychiatric: A+Ox3, euthymic affect Results & Data Results & Data Vital Signs (Past 12 Hours) Vital Signs Temp Pulse Pulse Resp BP BP Pulse Ox 03/04/24 16:01 36.3 C L 78 18 107/57 L 93 03/04/24 11:06 36.5 C 93 H 18 133/72 90 03/04/24 07:29 36.4 C L 70 18 128/68 91 03/04/24 07:13 72 O2 Del Method 03/04/24 16:01 Room Air 03/04/24 11:06 Room Air 03/04/24 07:29 Room Air 03/04/24 07:13 Laboratory Results 03/04/24 05:29 03/04/24 05:29 PG Care Time/CCT Total # of Minutes Spent Total Time Spent with Patient: Total time spent is greater than 50% in coordination of care (as documented) at patient's floor/unit and/or counseling patient: Coding Level of Care Code 12799 SUB INP/OBS CARE 2/35MIN Diagnoses Unwitnessed fall R29.6 Compression fracture of T4 vertebra S22.040A Encounter type: initial encounter Anemia D64.9 (2) Compression fracture of T4 vertebra Encounter type: initial encounter Qualified Code(s): S22.040A - Wedge compression fracture of fourth thoracic vertebra, initial encounter for closed fracture
[2024-03-05] MEDS: traMADol HCL 50 MG TABLET PO PRN (07:55)
[2024-03-05 08:11] LABS: Hematocrit (blood only) 30.6 % (37.0-47.0); Hemoglobin 9.6 g/dl (12.0-16.0); Mean Corpuscular Hemoglobin 25.2 pg (25.0-34.0); Mean Corpuscular Hgb Conc 31.4 g/dL (32.0-36.0); Mean Corpuscular Volume 80.3 fL (80.0-100.0); Mean Platelet Volume 10.2 fL (9.4-12.4); Platelet Count 263 K/uL (130-400); RDW Coefficient of Variation 15.6 % (11.5-14.5); RDW Standard Deviation 45.7 fL (36.4-46.3); Red Blood Count 3.81 M/uL (4.20-5.40); White Blood Count 6.44 K/ul (4.8-10.8)
--- NOTE | 2024-03-05 08:27 | Orthopedic Progress Note ---
Date of Service March 05, 2024 Assessment & Plan (1) Neurogenic claudication due to lumbar spinal stenosis: Plan: Updated MRI reviewed. It confirms multilevel severe spinal stenosis with spondylolisthesis at L4-L5. I have discussed the results with the patient. This does include nondisplaced sacral fracture most likely secondary to a fall. I have sized the patient we must maximize her health status prior to proceeding with surgical intervention. She ultimately would benefit from surgery. It would be extensive in nature requiring a lumbar decompression and fusion L3-L5 possibly S1. Currently her iron levels and vitamin D levels are low. Both of these would need to be corrected before any surgical intervention to maximize her outcome. She understands agrees. Suggest we work with her medically over the next several weeks and consider surgery in the next 4 to 6 weeks. Admission and Anticipated Discharge Date Admission Date: March 03, 2024 Subjective Patient still struggling with significant lumbosacral back pain and limitations with ambulation. Physical Exam Physical Exam: On exam this morning she is comfortable in bed. Neurologically intact. Results & Data Vital Signs (Past 12 Hours) Vital Signs Temp Pulse Pulse Resp BP BP Pulse Ox 03/05/24 07:50 03/05/24 07:43 36.4 C L 65 18 123/66 90 03/05/24 05:40 86 03/05/24 03:37 36.4 C L 76 16 162/80 H 93 03/04/24 22:28 36.4 C L 84 18 145/76 H 94 03/04/24 21:43 85 03/04/24 21:30 O2 Del Method 03/05/24 07:50 Room Air 03/05/24 07:43 Room Air 03/05/24 05:40 03/05/24 03:37 Room Air 03/04/24 22:28 Room Air 03/04/24 21:43 03/04/24 21:30 Room Air
[2024-03-05 08:30] LABS: BUN Creatinine Ratio 22.9 (10-20); Calcium 8.3 mg/dl (8.6-10.3); Creatinine Clr Calc Pharmacy 55.3 ml/min
[2024-03-05] MEDS: CALCITONIN SALMON NA 200 IU/AC 3.7 ML BTL SCH (10:12)
--- NOTE | 2024-03-05 15:23 | Hospitalist Progress Note ---
Date of Service March 05, 2024 Assessment & Plan (1) Unwitnessed fall: Plan: Secondary to syncope vs due to chronic weakness/back pain - on ground ~ 5 hours, CK negative - EKG NSR - CXR, head CT, head CTA negative - Thoracic spine CT showed compression fx of T4; see below -Tylenol 1000mg q8h -Tramadol prn for breakthrough pain. - consult ortho spine reviewed 03/05 consider surgical correction pending stabilization of iron and vitamin d levels. Anticipate in 4-6 weeks. -Lumbar MRI reviewed 03/04: partially imaged marrow edema at S2 and S3 suggestive of acute or subacute nondisplaced sacral fractures. unchanged grade II anterolisthesis L4 on L4. Scoliosis w/ mod to advanced degenerative changes of lumbar spine re-demonstrated resulting in multi-level central canal and foraminal narrowing. fluid signal within L1-L2 and L4-L5 disc spaces new from prior MRI. -CBC reviewed 03/05: hgb 9.6, appears chronic. WBC WNL. -BMP reviewed 03/05: stable. -Vitamin B 12 reviewed 03/04: 188 could consider B 12 supplement outpatient as this is low normal range. -Vitamin D reviewed 03/04: < 7 started on supplementation -Iron panel reviewed 03/04: Fe 20, transferrin 7% s/p IV Iron recommend Ferrous Sulfate 325mg MWF outpatient. consider GI referral for colonoscopy for further eval of iron def anemia. -PT recommending rehab. -OT recommending rehab. AM CBC, BMP. (2) Compression fracture of T4 vertebra: Plan: - Subacute T4 compression fracture seen on thoracic spine CT after an unwitnessed fall - Consult orthospine as stated above see plan above. (3) Anemia: Plan: Appears chronic - microcytic hypochromic - Hgb 9.6 -see plan above. Plan Chronic stable diagnoses: anxiety/depression - continue paroxetine VTE ppx: SCDs Diet: regular Code status: DNR/DNI Dispo: med Admission and Anticipated Discharge Date Admission Date: March 03, 2024 Subjective patient seen and examined this morning. Patient reports 7/10 low back pain. states that is about her baseline. states she has been struggling with this for a long time. Physical Exam Constitutional: WD/WN, vitals as above Eyes: PERRL, conjunctivae normal, anicteric sclerae Respiratory: breathing unlabored Cardiovascular: well perfused Psychiatric: A+Ox3, euthymic affect Results & Data Results & Data Vital Signs (Past 12 Hours) Vital Signs Temp Pulse Pulse Resp BP BP Pulse Ox 03/05/24 13:01 76 03/05/24 12:38 36.9 C 80 16 146/81 H 92 03/05/24 11:10 36.8 C 80 16 128/73 92 03/05/24 07:50 03/05/24 07:43 36.4 C L 65 18 123/66 90 03/05/24 05:40 86 03/05/24 03:37 36.4 C L 76 16 162/80 H 93 O2 Del Method 03/05/24 13:01 03/05/24 12:38 Room Air 03/05/24 11:10 Room Air 03/05/24 07:50 Room Air 03/05/24 07:43 Room Air 03/05/24 05:40 03/05/24 03:37 Room Air PG Care Time/CCT Total # of Minutes Spent Total Time Spent with Patient: Total time spent is greater than 50% in coordination of care (as documented) at patient's floor/unit and/or counseling patient: Coding Level of Care Code 48392 SUB INP/OBS CARE 2/35MIN Diagnoses Unwitnessed fall R29.6 Compression fracture of T4 vertebra S22.040A Encounter type: initial encounter Anemia D64.9 (2) Compression fracture of T4 vertebra Encounter type: initial encounter Qualified Code(s): S22.040A - Wedge compression fracture of fourth thoracic vertebra, initial encounter for closed fracture
[2024-03-06 07:33] VITALS: RESP 16; O2SAT 93
--- NOTE | 2024-03-06 09:39 | Electrocardiogram Report ---
Test Reason : Blood Pressure : */* mmHG Vent. Rate : 80 BPM Atrial Rate : 80 BPM P-R Int : 136 ms QRS Dur : 70 ms QT Int : 384 ms P-R-T Axes : 53 -15 75 degrees QTcB Int : 442 ms Normal sinus rhythm Septal infarct (cited on or before 17-May-2023) Abnormal ECG When compared with ECG of 03-Dec-2023 22:57, No significant change Confirmed by Aquilino Chambers ([id number]) on 03/06/2024 9:39:00 AM Referred By: NO PCP Confirmed By: Aquilino Chambers
--- NOTE | 2024-03-06 12:14 | Discharge Summary ---
Discharge Summary Date of Service March 06, 2024 Principal Dx & Hospital Course #1 = Principal Diagnosis (1) Unwitnessed fall: Secondary to syncope vs due to chronic weakness/back pain - on ground ~ 5 hours, CK negative - EKG NSR - CXR, head CT, head CTA negative - Thoracic spine CT showed compression fx of T4; see below -Tylenol 1000mg q8h -Tramadol prn for breakthrough pain. - consult ortho spine reviewed 03/05 consider surgical correction pending stabilization of iron and vitamin d levels. Anticipate in 4-6 weeks. -Lumbar MRI reviewed 03/04: partially imaged marrow edema at S2 and S3 suggestive of acute or subacute nondisplaced sacral fractures. unchanged grade II anterolisthesis L4 on L4. Scoliosis w/ mod to advanced degenerative changes of lumbar spine re-demonstrated resulting in multi-level central canal and foraminal narrowing. fluid signal within L1-L2 and L4-L5 disc spaces new from prior MRI. -CBC reviewed 03/05: hgb 9.6, appears chronic. WBC WNL. -BMP reviewed 03/05: stable. -Vitamin B 12 reviewed 03/04: 188 could consider B 12 supplement outpatient as this is low normal range. -Vitamin D reviewed 03/04: < 7 started on supplementation -Iron panel reviewed 03/04: Fe 20, transferrin 7% s/p IV Iron recommend Ferrous Sulfate 325mg MWF outpatient. consider GI referral for colonoscopy for further eval of iron def anemia. -PT recommending rehab. -OT recommending rehab. -CM met with patient 03/06 - patient refused rehab and home health therapy. she would like to return home to be with her cat. -discussed w/ patient with Dr. Huynh and patient would like to return home. She is aware of the risks of returning home in her current conditions. she reports that rehab will not help her and she will continue to fall. also voiced frustration over her apartment building that she lives in. (2) Compression fracture of T4 vertebra: - Subacute T4 compression fracture seen on thoracic spine CT after an unwitnessed fall - follow up with Dr. Barba see plan above. (3) Anemia: Appears chronic - microcytic hypochromic - Hgb 9.6 -follow up with PCP outpatient for continued iron def tx. -consider outpatient referral to GI for workup. Plan Chronic stable diagnoses: anxiety/depression - continue paroxetine Admission HPI Per Admitting Provider Patient is a 73-year-old female with a past medical history of hypertension, lumbar stenosis, anxiety, frequent falls, and recent cellulitis treated with Keflex and doxycycline. She presents today from [facility] after a fall. Patient stated that she does her laundry at about 3 AM, when she went down to do her laundry she remembers taking a down, but then does not recall what happened next. She was found laying down in the hallway in front of the elevator with her walker and dried clothes hanging from her walker. She stated that she does not remember falling, she woke up to her neighbor saying her name and felt tired and pain. She stated that the pain is similar to her chronic back pain that she experiences. Patient denies fever, chills, headache, dizziness, lightheadedness, vision changes, rhinorrhea, sore throat, cough, sputum production, dyspnea, dyspnea on exertion, chest pain, abdominal pain, nausea, vomiting, diarrhea, dysuria, hematuria, edema. She stated that she has chronic constipation. She also often has some numbness in her bilateral feet, likely due to the lumbar stenosis, although sensory exam WNL on admission. Her recent cellulitis has drastically improved as per patient. She stated that she is found multiple times in the past, with wrist and arm fractures. She has never gone to a short-term rehab facility. She smokes 5 to 6 cigarettes/day and has for most of her life. She drinks 2-3 alcoholic beverages a week. She resides at [facility]. She does not have a written POA but wishes for it to be her neighbor, Nicolle. She does have a son who does not live in the area, she is currently not speaking with him. She wishes to be DNR/DNI at this time, no written medical living will. She denies past history of DM, cancer, VTE, kidney disease. She does not use oxygen at baseline. She only takes paroxetine at home before bed, she cannot remember if she took it last night but she may have, will resume tonight. She did have an MRI in October showing lumbar stenosis. She followed up with spine surgery at this time who recommended surgery if she quit smoking. She is interested in what spine surgery has to say, but would like to hear a another medical opinion a different spinal surgeon. Discharge Exam Constitutional WD/WN, vitals as above Eyes PERRL, conjunctivae normal, anicteric sclerae Psychiatric A+Ox3, euthymic affect Discharge Plan Discharge Items Patient Disposition: Home - Self-Care Reason For Visit: UNWITNESSED FALL, T4 COMPRESSION FX Discharge Diagnosis: Fall, T4 compression fracture Activity: Resume your previous activity Non-emergency contact: Primary Care Provider Call non-emergency contact if: you have any medication questions and your symptoms worsen Follow-up/Referrals: Bill Stanton, [Primary Care Provider] - Diet: Regular Addtl Attending Provider Instructions: Ms. Foy, You were recently hospitalized following a fall and found to have a compression fracture in your spine. It was recommended to go to a rehab facility to help gain strength but you have elected to return home. Please see recommendations below regarding your discharge. 1. Please follow up with your PCP to help optimize your iron and vitamin D levels before surgery. 2. Please take iron every other day. 3. You were given a high dose of vitamin D in the hospital. Please follow up with your PCP for continued treatment of this. 4. Please use Tylenol as needed for pain. 5. Please use Tramadol as needed for breakthrough pain every 6 hours. (8,9,10 on pain scale) Please do not use Tramadol if drinking alcohol. 6. Please use Calcitonin nasal spray alternating nares for the next 2 weeks. - this will help with your back pain. If you develop any worsening weakness, dizziness, or continued falls please report to the ER for further care. Sincerely, Jocelyn Bradford PA-C Pending Studies at Discharge: No Stand-Alone Forms: My [employer], Smoking Cessation Medications and DC Order Prescriptions: New tramadol 50 mg Tablet 50 mg PO Q6H PRN (Reason: pain) Qty: 10 0RF calcitonin (salmon) 200 unit/actuation [place],Non-Aerosol 1 spray NA DAILY Qty: 10 0RF ferrous sulfate 325 mg (65 mg iron) tablet 325 mg PO Q OTHER DAY Qty: 30 0RF Continued paroxetine HCl 40 mg tablet 40 mg PO DAILY 90 Days Qty: 90 3RF multivitamin [Multiple Vitamins] Tablet 1 tab PO DAILY Excedrin Extra Strength 250-250-65 mg Tablet 1 tab PO UD Hold Instructions: Home Medication placed on hold at Doctor's office Rx Instructions: PER PT "TAKE 1 TAB DAILY AND UP TO 3 DOSES DAILY IF NEEDED". naproxen sodium [Aleve] 220 mg Tablet 220 - 440 mg PO BID PRN (Reason: Pain) Held bumetanide 0.5 mg tablet 0.5 mg PO DAILY PRN (Reason: lower extremity edema) Qty: 30 0RF Hold Instructions: Resume on 03/13/24. until seen by PCP Rx Instructions: filled 12/21 30 day supply No Action (DME) compr.stocking,knee,long,small Misc See Rx Instructions .Route Qty: 12 0RF Rx Instructions: As directed Discharge Orders: Discharge Order (Routine); Ordered 03/06/24 Ordered By: Jocelyn Bradford Admission Data Admit Date/Time: 03/03/24 12:15 Attending Provider: Jesus Huynh Admit Provider: Ruben Boyer Primary Care Provider: Bill Stanton Other Providers: Ruben Boyer; Marcin Barba Hospital Stay Data Consultations 03/03/24 11:23 ED Decision to Admit Stat 03/04/24 09:00 Consult Orthopedic Surgery Routine Diagnostic Imagining Performed 03/03/24 09:19 CT head/brain wo con Stat 03/03/24 09:24 CT angio head w con Stat CT angio neck with con Stat CT lumbar spine wo con Stat CT thoracic spine wo con Stat 03/04/24 09:26 MR lumbar spine wo con Urgent Pending Results Patient Have Any Pending Studies at Discharge: No Discharge Instructions Given to Patient (Per Discharging Provider) Ms. Foy, You were recently hospitalized following a fall and found to have a compression fracture in your spine. It was recommended to go to a rehab facility to help gain strength but you have elected to return home. Please see recommendations below regarding your discharge. 1. Please follow up with your PCP to help optimize your iron and vitamin D levels before surgery. 2. Please take iron every other day. 3. You were given a high dose of vitamin D in the hospital. Please follow up with your PCP for continued treatment of this. 4. Please use Tylenol as needed for pain. 5. Please use Tramadol as needed for breakthrough pain every 6 hours. (8,9,10 on pain scale) Please do not use Tramadol if drinking alcohol. 6. Please use Calcitonin nasal spray alternating nares for the next 2 weeks. - this will help with your back pain. If you develop any worsening weakness, dizziness, or continued falls please report to the ER for further care. Sincerely, Jocelyn Bradford PA-C Total Time Total Time Spent Total Time Spent (In Minutes): 40 Total Time Includes: Examination of the Patient, Discharge Planning, Medication Reconciliation and Communication With Other Providers Coding Level of Care Code 18434 INP/OBS DISCH >30 MIN Diagnoses Unwitnessed fall R29.6 Compression fracture of T4 vertebra S22.040A Encounter type: initial encounter Anemia D64.9
[2024-03-06 14:08] VITALS: BP 122/69; PULSE 82; TEMP 98.4
== END 2024-03-06 15:40 | disposition home or self-care (01) | DRG 552 ==
LOC: ED 08:57 → 2N 12:15 → SUATTDRO 12:15 → 2N 13:48 → 3E 03-05 19:18

== ENCOUNTER 2024-09-09 12:06 | Inpatient (IN) ==
--- NOTE | 2024-09-09 12:44 | Emergency Department Note ---
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 these findings are not progressive. ACT 112: Positive. There are findings on this exam that require communication between the performing entity and the patient following Patient Test Result Information Act ([place] Act 112) guidelines. Electronically signed by: Tang Montague M.D. 09/09/2024 2:[address] 09/09/24 12:37 CT SCAN OF THE BRAIN WITHOUT IV CONTRAST CLINICAL HISTORY: Fall. COMPARISON STUDY: MRI of the brain January 23, 2024. Head CT March 03, 2024. TECHNIQUE: Unenhanced axial CT scan of the brain was performed from the vertex to the skull base. A dose lowering technique was utilized adhering to the principles of ALARA. FINDINGS: Brain parenchyma: There is mild motion artifact. No acute intracranial hemorrhage, midline shift or mass effect is present. Gonzáles-white matter differentiation is preserved. White matter hypodensities are unchanged and favor small vessel disease. A densely calcified 1.5 cm extra-axial lesion overlying the left frontal convexity is unchanged. This represents a meningioma. Ventricles, sulci, cisterns: There is no hydrocephalus. The basal cisterns are patent. Calvarium: There are no calvarial fractures. Sinuses and mastoids: The visualized paranasal sinuses are clear. The mastoid air cells are well pneumatized. Orbits: The bony orbits are grossly intact. IMPRESSION: 1. No acute intracranial findings. No change in appearance of the brain. 2. No calvarial fractures. ACT 112: Negative or not required by law. Electronically signed by: Miller Napier M.D. 09/09/2024 2:21 PM Discharge Plan Visit Data Chief Complaint: Fall Stated Complaint: L ARM PAIN, FALL ED Provider: Brennan Haynes Discharge Problem: Fall, Compression fracture of T4 vertebra, Skin tear of left forearm without complication, Cellulitis of left hand, Multiple rib fractures, Fracture of transverse process of lumbar vertebra, Fecal occult blood test positive Patient Disposition: Being Evaluated by Hospitalist Condition: Fair Forms Stand Alone Forms: My [employer] Prescriptions Prescriptions: No Action paroxetine HCl 40 mg tablet 40 mg PO DAILY 90 Days Qty: 90 3RF Rx Instructions: LAST FILLED 05/12/24 FOR 90 DAYS/90 TABS. tramadol 50 mg tablet 50 mg PO Q6H PRN (Reason: pain) Qty: 10 0RF Rx Instructions: FILLED 03/22/24 FOR 10 TABS. ferrous sulfate 325 mg (65 mg iron) tablet 325 mg PO Q OTHER DAY Qty: 30 2RF Rx Instructions: PER PT "NEVER PICKED UP". cholecalciferol (vitamin D3) 25 mcg (1,000 unit) capsule 25 mcg PO DAILY Qty: 30 2RF Rx Instructions: PER PT "NEVER PICKED UP" mecobalamin (vitamin B12) 1,000 mcg tablet,chewable 1,000 mcg PO DAILY Qty: 30 2RF Rx Instructions: PER PT "NEVER PICKED UP" multivitamin [Multiple Vitamins] Tablet 1 tab PO DAILY (DME) compr.stocking,knee,long,small Misc See Rx Instructions .Route Qty: 12 0RF Rx Instructions: As directed bumetanide 0.5 mg tablet 0.5 mg PO DAILY PRN (Reason: lower extremity edema) Qty: 30 0RF Hold Instructions: Resume on 03/13/24. until seen by PCP Rx Instructions: filled 12/21 30 day supply (DME) Wheeled Walker Misc See Rx Instructions .Route Qty: 1 0RF Rx Instructions: As directed with a seat Excedrin Extra Strength 250-250-65 mg Tablet 1 tab PO UD Hold Instructions: Home Medication placed on hold at Doctor's office Rx Instructions: PER PT "TAKE 1 TAB DAILY AND UP TO 3 DOSES DAILY IF NEEDED". calcitonin (salmon) 200 unit/actuation [place],Non-Aerosol 1 spray NA DAILY Qty: 10 0RF cholecalciferol (vitamin D3) 1,250 mcg (50,000 unit) capsule 50,000 unit PO WK naproxen sodium [Aleve] 220 mg Tablet 220 - 440 mg PO BID PRN (Reason: Pain) Referrals Referrals: Bill Stanton DO [Primary Care Provider] - Discharge Problem: Fall Qualifiers: Encounter type: initial encounter Qualified Code(s): W19.XXXA - Unspecified fall, initial encounter Compression fracture of T4 vertebra Qualifiers: Encounter type: initial encounter Qualified Code(s): S22.040A - Wedge compression fracture of fourth thoracic vertebra, initial encounter for closed fracture Skin tear of left forearm without complication Qualifiers: Encounter type: initial encounter Qualified Code(s): S51.812A - Laceration without foreign body of left forearm, initial encounter Multiple rib fractures Qualifiers: Encounter type: initial encounter Fracture type: closed Laterality: right Q ualified Code(s): S22.41XA - Multiple fractures of ribs, right side, initial encounter for closed fracture Fracture of transverse process of lumbar vertebra Qualifiers: Encounter type: initial encounter Fracture type: closed Qualified Code(s): S 32.009A - Unspecified fracture of unspecified lumbar vertebra, initial encounter for closed fracture
[2024-09-09 13:19] LABS: iSTAT Creatinine 0.7 mg/dl (0.6-1.3); iSTAT Hemoglobin 7.5 g/dl (12.0-16.0); iSTAT Ionized Calcium 1.16 mmol/l (1.12-1.32); iSTAT Potassium 3.5 mmol/L (3.3-5.0)
[2024-09-09 13:36] LABS: Basophils # (auto) 0.04 K/uL (0.00-0.20); Basophils % (auto) 0.4 %; Eosinophils # (auto) 0.23 K/uL (0.00-0.50); Eosinophils % (auto) 2.6 %; Hematocrit (blood only) 23.8 % (37.0-47.0); Immature Granulocytes # (auto) 0.03 K/uL (0.01-0.20); Immature Granulocytes % (auto) 0.3 %; Lymphocytes # (auto) 1.09 K/uL (1.20-3.40); Lymphocytes % (auto) 12.2 %; Mean Corpuscular Hemoglobin 21.7 pg (25.0-34.0); Mean Corpuscular Hgb Conc 29.4 g/dL (32.0-36.0); Mean Corpuscular Volume 73.7 fL (80.0-100.0); Mean Platelet Volume 9.4 fL (9.4-12.4); Monocytes # (auto) 0.51 K/uL (0.11-0.59); Monocytes % (auto) 5.7 %; Neutrophils # (auto) 7.05 K/uL (1.40-6.50); Neutrophils % (auto) 78.8 %; Platelet Count 332 K/uL (130-400); RDW Coefficient of Variation 15.8 % (11.5-14.5); RDW Standard Deviation 42.3 fL (36.4-46.3); Red Blood Count 3.23 M/uL (4.20-5.40); White Blood Count 8.95 K/ul (4.8-10.8)
[2024-09-09 13:44] LABS: INR 0.9 (0.9-1.1); Partial Thromboplastin Time 26 Seconds (21-31); Prothrombin Time 9.8 Seconds (9.0-12.0)
--- NOTE | 2024-09-09 13:54 | XRay Report ---
XR chest 1V portable CLINICAL HISTORY: fall COMPARISON STUDY: 03/03/2024 FINDINGS: There is stable mild cardiomegaly without pulmonary vascular congestion. No effusion, conso lidation, or pneumothorax. No displaced rib fractures seen. Stable scoliosis. IMPRESSION: No acute findings seen. ACT 112: Negative or not required by law. Electronically signed by: Tang Montague M.D. 09/09/2024 1:53 PM
--- NOTE | 2024-09-09 13:54 | XRay Report ---
XR hand LT min 3V routine, XR forearm LT 2V CLINICAL HISTORY: fall COMPARISON: Left elbow 10/20/2022 FINDINGS: There is an old fracture at the radial head. There are chronic calcifications or osseous d ensities adjacent to the radial head and lateral epicondyles consistent with old injury and calcific tendinitis. Plate-screw fixation of the distal radius shows no hardware complication. There are old h ealed fractures distally of the radius and ulna. No acute fracture or dislocation seen at the left fo rearm. There are yfow-fn-[id number] scattered degenerative changes at the IP joints. No acute fracture or disl ocation seen at the left hand. IMPRESSION: No acute fracture seen. Otherwise as described. ACT 112: Negative or not required by law. Electronically signed by: Tang Montague M.D. 09/09/2024 1:53 PM
--- NOTE | 2024-09-09 13:54 | XRay Report ---
XR hand LT min 3V routine, XR forearm LT 2V CLINICAL HISTORY: fall COMPARISON: Left elbow 10/20/2022 FINDINGS: There is an old fracture at the radial head. There are chronic calcifications or osseous d ensities adjacent to the radial head and lateral epicondyles consistent with old injury and calcific tendinitis. Plate-screw fixation of the distal radius shows no hardware complication. There are old h ealed fractures distally of the radius and ulna. No acute fracture or dislocation seen at the left fo rearm. There are wiwn-os-egwqnshr scattered degenerative changes at the IP joints. No acute fracture or disl ocation seen at the left hand. IMPRESSION: No acute fracture seen. Otherwise as described. ACT 112: Negative or not required by law. Electronically signed by: Tang Montague M.D. 09/09/2024 1:53 PM
[2024-09-09 13:55] LABS: Albumin Globulin Ratio 1.2 (0.9-2); Albumin Level 3.5 gm/dl (3.4-5.0); BUN Creatinine Ratio 33.8 (10-20); Bilirubin,Total 0.3 mg/dl (0.2-1.0); Calcium 8.7 mg/dl (8.6-10.3); Creatinine Clr Calc Pharmacy 57.7 ml/min; Potassium 3.5 mmol/L (3.5-5.1); Total Protein 6.5 gm/dl (6.0-8.3)
[2024-09-09 14:00] LABS: Troponin I High Sensitivity 10.3 pg/ml (0-14)
[2024-09-09 14:04] LABS: Hypochromasia Present; Microcytosis Present; Ovalocytes 1+
--- NOTE | 2024-09-09 14:14 | CT Scan Report ---
CT chest diagnostic wo con CT DOSE: 705.11 mGy.cm CLINICAL HISTORY: trauma. TECHNIQUE: Multiaxial CT images of the chest were performed without contrast. A dose lowering techni que was utilized adhering to the principles of ALARA. COMPARISON STUDY: 12/03/2023 FINDINGS: There is a small hiatal hernia. There is mild emphysema. There is minimal atelectasis in th e lung bases. There is no pulmonary contusion or pleural effusion. No pneumothorax. There is a mildly enlarged left axillary lymph node measuring 2 cm greatest axial dimension series 6 image 61, increas ed in size. No other enlarged adenopathy seen in the chest. No pericardial effusion. There are diffus e coronary artery and aortic calcifications. No mediastinal hematoma. There are minimally displaced f ractures laterally at the right eighth and ninth ribs which appear acute. There are a few other subac lac vieux rib fractures. There is mild scoliosis. There is an interval acute appearing mild vertebral body compression fracture at T4. No other acute osseous finding seen. IMPRESSION: 1. Acute mild vertebral body compression fracture at T4 and minimally displaced acute fractures at th e right eighth and ninth ribs. 2. No pneumothorax, pulmonary contusion, or pleural effusion. 3. No other acute injury seen in the chest. 4. Interval mildly enlarged left axillary lymph node. Suggest follow-up axillary ultrasound in 3-6 mo nths to make sure that these findings are not progressive. ACT 112: Positive. There are findings on this exam that require communication between the performing entity and the patient following Patient Test Result Information Act ([place] Act 112) guidelines. Electronically signed by: Tang Montague M.D. 09/09/2024 2:13 PM
--- NOTE | 2024-09-09 14:21 | CT Scan Report ---
CT cervical spine wo con CT DOSE: 965.13 mGy.cm CLINICAL HISTORY: 74 years-old Female with Trauma. Acute head and neck trauma COMPARISON: Head CT of same day, CTA neck 03/03/2024 TECHNIQUE: Multiple axial CT images of the cervical spine were obtained without contrast. A dose low ering technique was utilized adhering to the principles of ALARA. FINDINGS: Multilevel degenerative changes including severe disc space narrowing with endplate irregul arity and C3-C4, unchanged from prior. Additional moderate to severe disc space narrowing seen at C4- C5, C5-C6 and C6-C7. Moderate to severe multilevel facet arthrosis, most pronounced at C2-C3. No acut e fracture or subluxation identified. The cervical soft tissues appear unremarkable. Pulmonary emphy sema without pneumothorax. IMPRESSION: 1. No acute cervical spine fracture or subluxation. 2. Multilevel degenerative changes as above. ACT 112: Negative or not required by law. The above report was generated using voice recognition software. It may contain grammatical, syntax o r spelling errors. Electronically signed by: Chet Patterson M.D. 09/09/2024 2:20 PM
--- NOTE | 2024-09-09 14:23 | CT Scan Report ---
CT SCAN OF THE BRAIN WITHOUT IV CONTRAST CLINICAL HISTORY: Fall. COMPARISON STUDY: MRI of the brain January 23, 2024. Head CT March 03, 2024. TECHNIQUE: Unenhanced axial CT scan of the brain was performed from the vertex to the skull base. A dose lowering technique was utilized adhering to the principles of ALARA. FINDINGS: Brain parenchyma: There is mild motion artifact. No acute intracranial hemorrhage, midline shift or m ass effect is present. Gonzáles-white matter differentiation is preserved. White matter hypodensities are unchanged and favor small vessel disease. A densely calcified 1.5 cm extra-axial lesion overlying th e left frontal convexity is unchanged. This represents a meningioma. Ventricles, sulci, cisterns: There is no hydrocephalus. The basal cisterns are patent. Calvarium: There are no calvarial fractures. Sinuses and mastoids: The visualized paranasal sinuses are clear. The mastoid air cells are well pneu matized. Orbits: The bony orbits are grossly intact. IMPRESSION: 1. No acute intracranial findings. No change in appearance of the brain. 2. No calvarial fractures. ACT 112: Negative or not required by law. Electronically signed by: Miller Napier M.D. 09/09/2024 2:21 PM
--- NOTE | 2024-09-09 14:26 | CT Scan Report ---
ABDOMEN AND PELVIS CT WITHOUT CONTRAST HISTORY: trauma TECHNIQUE: Multiaxial CT images of the abdomen and pelvis were performed without contrast. A dose lo wering technique was utilized adhering to the principles of ALARA. COMPARISON STUDY: None FINDINGS: ABDOMEN: There is a tiny cyst in the liver adjacent to the gallbladder fossa. Liver, gallbladder, spl een, pancreas, kidneys, and adrenal glands show no evidence of acute injury on this non-IV contrast s tudy. There is no hydronephrosis. There are a few small cysts of the kidneys. There is a 1.5 cm right adrenal nodule with Hounsfield density of 3, consistent with adrenal adenoma. There are scattered at herosclerotic calcifications. No abdominal aortic aneurysm. There is a small hiatal hernia. Pelvis: Urinary bladder is grossly unremarkable. No bowel inflammation or obstruction. There is moder ate retained stool. No free fluid, free air, or hematoma seen. Osseous structures: There is osteopenia. Scoliosis and degenerative changes are present at the lumbar spine. There is grade 2 anterolisthesis of L4 on 5. There are acute nondisplaced fractures at the ri ght transverse processes of L2 and L3. No other acute fractures seen. IMPRESSION: 1. Acute nondisplaced fractures at the right transverse processes of L2 and L3. 2. No other acute injury is seen at the abdomen or pelvis. Otherwise as described. ACT 112: Negative or not required by law. The above report was generated using voice recognition software. It may contain grammatical, syntax o r spelling errors. Electronically signed by: Tang Montague M.D. 09/09/2024 2:25 PM
[2024-09-09] MEDS: ceFAZolin 2000MG 2,000 MG/15 ML SYR IV STA (14:30)
[2024-09-09] MEDS: ACETAMINOPHEN 325 MG TAB PO STA (14:49)
[2024-09-09] MEDS: fentaNYL citrate PF 100 MCG/2 ML VIAL IV STA (14:50)
[2024-09-09] MEDS: PANTOprazole 80 MG in DEXTROSE 5% 100 ML IV STA (15:19)
--- NOTE | 2024-09-09 15:25 | History & Physical Report ---
Date of Service September 09, 2024 Assessment & Plan (1) Upper GI bleed: (2) Iron deficiency anemia: (3) Recurrent falls: (4) Skin tear of left forearm without complication: (5) Compression fracture of T4 vertebra: (6) Fracture of L2 vertebra: (7) Fracture of L3 vertebra: Plan Mrs. Foy is an 74-year-old female who presented on 09/09 for recurrent falls. Coming in for iron deficiency anemia. # Iron deficiency anemia | suspected upper GI bleed Despite having iron supplements listed in her med rec, she reports she is not currently taking iron Hgb 7.0 on arrival; MCV low at 73 Iron low on arrival Venofer 300 mg IV infusions x 2 Hemoccult stool (+) BUN/creatinine > 30; suspected gradual upper GI bleed Protonix IV 80 mg bolus + drip Patient reports she is never had an EGD or colonoscopy performed Gastroenterology consulted for potential scope Clear liquid diet for now; n.p.o. at midnight Type and screen ordered; discussed potential blood transfusion with patient if Hgb continues to drop (pros/cons); however, patient would like to think about h er decision before signing consent form Blood consent form offered at 1600 Addendum at 1900: patient still undecided No blood product ordered; Please check AM Hgb and order pRBCs as needed Trend H&H Supplement B12 IM and po #Recurrent falls Head CT revealed no acute findings Patient ambulates with a walker at baseline; endorses falling once daily PT/OT evaluations appreciated Fall precautions Case management consult appreciated; ? potential OOA case Patient also reports that she has a cat at home who needs to be cared for Supplement Vit D #Acute nondisplaced transverse L2 and L3 fractures Orthotics consulted for LSO brace Addendum: patient decline LSO brace Acetaminophen as needed for pain control #T4 compression fracture Chronic; Lefor calcitonin spray daily #Left forearm skin tear | left hand cellulitis No leukocytosis; afebrile Patient declined tetanus shot on admission CRP ordered, pending Ancef 2000 mg IV x 1 Ancef 1000 mg IV q8h for now Daily wound care #Anxiety/depression Continue paroxetine [facility] PPx: Hold chemical DVT PPx in the setting of GI bleed; SCDs History of Present Illness Chief Complaint: Recurrent falls Primary Care Provider: Bill Stanton DO Mrs. Foy is a 74-year-old female with PMH of degenerative spondylolithiasis, scoliosis, recurrent falls, T4 compression fracture (on 02/2024), vitamin D deficiency, anxiety, depression, and HTN. She presented on 09/09 for recurrent falls. Patient lives by herself in a senior apartment. She reports that she fell yesterday when taking her trash out her apartment door; the door hit her back and she fell forward into her walker. No head strike. No LOC. Not on blood thinners. However the walker did "rip" her left forearm, and she reports that the door hit her back hard. Patient reports she falls at home on average once per day. She does ambulate with a walker at baseline. Her recurrent falls began around 3 years ago after she fell on ice, and she reports since that time she has "never been the same". Patient took naproxen this morning for her left forearm pain. She did not take any other medications this morning. Patient manages her own medicine at home. However, she reports that she is not taking iron supplements every other day, as she did not know she had tube. No fever. No sick contacts. Patient is a current everyday tobacco cigarette smoker, but has been cutting back; used to be half PPD, but has only had 4 cigarettes in the past month. She endorses occasional alcohol use, with her last drink being 2 weeks ago (wine). She denies any prior history of GI bleeds or blood transfusions. Patient lives with her cat ("Josesito"). Patient's vitals are stable at time of admission. ED course: Cefazolin 2000 mg IV Protonix 80 mg IV bolus Fentanyl 25 mcg IV Acetaminophen 650 mg p.o. ROS: Patient endorses dizziness/lightheadedness when walking, JACKSON, double vision (ongoing), chest pressure/intermittent (attributes to anxiety/stress), OTT, abdominal discomfort, back pain, and left forearm skin tear. Patient denies fever, chills, night-sweats, SOB at rest, nausea, vomiting, diarrhea, melena, or blood in the urine/stool. Allergies Allergy/AdvReac Type Severity Reaction Status Date / Time Sulfa (Sulfonamide Allergy Intermediate BUMPS ON Verified 09/09/24 15:12 Antibiotics) TONGUE hydrocodone AdvReac Intermediate Vomiting Verified 09/09/24 15:12 Home Medications Medication Instructions Recorded Confirmed Type mysmdtb-wjlgknjeirete-tgmwmlun 250 1 tab PO UD 05/23/21 09/09/24 History mg-250 mg-65 mg tablet (Excedrin Extra Strength) compr.stocking,knee,long,small #12 ea 04/01/22 03/11/24 Rx multivitamin (Multiple Vitamins 1 tab PO DAILY 04/01/22 09/09/24 History tablet) paroxetine HCl 40 mg tablet 40 mg PO DAILY 90 days #90 tabs 11/30/23 09/09/24 Rx naproxen sodium 220 mg tablet 220 - 440 mg PO BID PRN Pain 12/04/23 09/09/24 History (Aleve) bumetanide 0.5 mg tablet 0.5 mg PO DAILY PRN lower 12/19/23 09/09/24 Rx extremity edema #30 tabs calcitonin (salmon) 200 1 spray NA DAILY #10 mL 03/06/24 09/09/24 Rx unit/actuation nasal spray Wheeled Walker #1 ea 03/11/24 03/11/24 Rx tramadol 50 mg tablet 50 mg PO Q6H PRN pain #10 tabs 03/20/24 09/09/24 Rx cholecalciferol (vitamin D3) 25 25 mcg PO DAILY #30 caps 06/27/24 09/09/24 Rx mcg (1,000 unit) capsule ferrous sulfate 325 mg (65 mg 325 mg PO Q OTHER DAY #30 tabs 06/27/24 09/09/24 Rx iron) tablet mecobalamin (vitamin B12) 1,000 1,000 mcg PO DAILY #30 tabs 06/27/24 09/09/24 Rx mcg chewable tablet cholecalciferol (vitamin D3) 1,250 50,000 unit PO WK 09/09/24 09/09/24 History mcg (50,000 unit) capsule Past Med/Surg History Problem List (Updated 09/09/24 @ 17:08 by Marcelo Nash PA-C) Fracture of L3 vertebra Fracture of L2 vertebra Recurrent falls Iron deficiency anemia Upper GI bleed Fecal occult blood test positive (Acute) Fracture of transverse process of lumbar vertebra (Acute) Multiple rib fractures (Acute) Cellulitis of left hand (Acute) Skin tear of left forearm without complication (Acute) Compression fracture of T4 vertebra (Acute) Fall (Acute) Vitamin B12 deficiency Vitamin D deficiency Neurogenic claudication due to lumbar spinal stenosis Compression fracture of T4 vertebra (Acute ~03/03/24) Compression fracture of the superior endplate of T4 40% loss of vertebral body height. Unwitnessed fall (Acute) Weakness Compression fracture of T4 vertebra (Acute 03/03/24) Compression fracture of the superior endplate of T4 40% loss of vertebral body height. The patient has recurrent falls per the ED report. Syncope Left leg cellulitis Anemia Recurrent falls (Acute) Orbital floor (blow-out) closed fracture Fracture of nasal bone with routine healing Back problem Arthritis Left elbow pain Scoliosis of thoracolumbar region due to degenerative disease of spine in adult Degenerative spondylolisthesis Lumbar spinal stenosis Neck Pain Lower extremity edema (Acute) Hypertension Anxiety and depression Back pain Medical History Kidney infection Bronchitis Surgical History H/O wrist surgery 2021 History of surgery on left wrist History of tubal ligation 1978 History of section 1982 History of tonsillectomy and adenoidectomy 1955 Family History Uncle Lung cancer Aunt Breast cancer Other COPD (chronic obstructive pulmonary disease) Denies family history of Ovarian cancer Prostate cancer Diabetes Myocardial infarction Colorectal cancer Stroke Social History Smoking Status: Current every day smoker Tobacco Type: Cigarettes Age Started Using Tobacco: 16; packs per day: 0.50; Cigarettes Per Day: 5; Second Hand Exposure: Yes; Do You Dip or Chew Tobacco: No; Hx Alcohol Use: Yes Alcohol type: beer and hard liquor Alcohol Intake Frequency: 2-3 x/Week Hx Substance Use: No Preferred Language: Dutch Communication Ability: Effective Visual Impairment: No Limitations Hearing Ability: Normal Medication Aide Required: No Beliefs That Will Affect Care: None marital status: / Current Living Situation: Personal Care Facility Current Living Situation Comment: [facility] current occupational status: retired Feels Safe at Home: No Is there a partner from a previous relationship who is making you feel unsafe now?: No Safety Concerns Comment: does not feel safe at her building due safety risks/fell on the ice Childhood Exposure to Second-Hand Smoke: No Diet: low salt and regular caffeine: No Dental Care, Regularly: No Physical Activity Frequency: Does not Exercise Seatbelt Use: always Sunscreen Use: No Assistive Devices: Walker Review of Systems Review of Systems: See HPI above Physical Exam Physical Exam: General: no acute distress; non-toxic appearing; frail appearing; cachectic; cooperative; SpO2 97% on RA HEENT: normocephalic, atraumatic; no scleral icterus; PERRLA w/ EOMs intact; vision and hearing grossly intact Neck: supple; no lymphadenopathy; trachea midline Skin: Skin tear noted on the left forearm, wrapped; warm, dry without signs of tenting; no cyanosis; no rashes, bruising, lesions, or erythema noted CV: chest wall NTP; RRR; S1/S2 normal; no murmurs/rubs/gallops; pulses intact and symmetric at radial, DP, and PT Lungs: no acute respiratory distress; symmetrical chest wall expansion; clear breath sounds across all lung ambriz w/o adventitious sounds; no wheezing ABD: Soft; left upper quadrant is mildly TTP; BS present; no rebound/guarding; no distention MSK: no tics or fasciculations; no edema noted in the LEs b/l, nonerythematous Neuro: A&Ox3; normal mood and affect; fluent speech; no focal deficits; patient reports mildly diminished sensation in her left foot when compared to the right Results & Data Results & Data Vital Signs (Past 12 Hours) Vital Signs Temp Pulse Pulse Resp BP BP Pulse Ox 09/09/24 15:00 75 19 134/73 97 09/09/24 14:00 79 14 148/76 H 97 09/09/24 13:13 77 22 141/79 H 97 09/09/24 13:10 93 09/09/24 13:08 77 09/09/24 12:17 36.8 C 84 16 153/92 H 98 O2 Del Method 09/09/24 15:00 Room Air 09/09/24 14:00 09/09/24 13:13 09/09/24 13:10 Room Air 09/09/24 13:08 09/09/24 12:17 Room Air Laboratory Results Abnormal lab results 09/09/24 09/09/24 09/09/24 Range/Units 13:02 13:07 14:36 RBC 3.23 L (4.20-5.40) M/uL Hgb 7.0 L (12.0-16.0) g/dl POC Hgb 7.5 L (12.0-16.0) g/dl Hct 23.8 L (37.0-47.0) % POC Hct 22 L (37-47) % MCV 73.7 L (80.0-100.0) fL MCH 21.7 L (25.0-34.0) pg MCHC 29.4 L (32.0-36.0) g/dL RDW Coeff of Dunia 15.8 H (11.5-14.5) % Neut # (Auto) 7.05 H (1.40-6.50) K/uL Lymph # (Auto) 1.09 L (1.20-3.40) K/uL Chloride 109 H (98-107) mmol/L POC Total CO2 22 L (24-31) mmol/L POC Anion Gap 14.0 L (16-25) mmol/L POC BUN 20 H (7-18) mg/dl BUN/Creatinine Ratio 33.8 H (10-20) Iron 16 L (35-150) mcg/dl Transferrin % Sat 4 L (15-50) % Total Creatine Kinase 252 H (26-192) U/L POC Stool Occult Blood Positive A (Negative) Diagnostic Findings Chest X-Ray 09/09/24 12:35 XR chest 1V portable CLINICAL HISTORY: fall COMPARISON STUDY: 03/03/2024 FINDINGS: There is stable mild cardiomegaly without pulmonary vascular congestion. No effusion, consolidation, or pneumothorax. No displaced rib fractures seen. Stable scoliosis. IMPRESSION: No acute findings seen. ACT 112: Negative or not required by law. Electronically signed by: Tang Montague M.D. 09/09/2024 1:53 PM Forearm X-Ray 09/09/24 12:35 XR hand LT min 3V routine, XR forearm LT 2V CLINICAL HISTORY: fall COMPARISON: Left elbow 10/20/2022 FINDINGS: There is an old fracture at the radial head. There are chronic calcifications or osseous densities adjacent to the radial head and lateral epicondyles consistent with old injury and calcific tendinitis. Plate-screw fixation of the distal radius shows no hardware complication. There are old healed fractures distally of the radius and ulna. No acute fracture or dislocati on seen at the left forearm. There are [id number] scattered degenerative changes at the IP joints. No acute fracture or dislocation seen at the left hand. IMPRESSION: No acute fracture seen. Otherwise as described. ACT 112: Negative or not required by law. Electronically signed by: Tang Montague M.D. 09/09/2024 1:53 PM Hand X-Ray 09/09/24 12:35 XR hand LT min 3V routine, XR forearm LT 2V CLINICAL HISTORY: fall COMPARISON: Left elbow 10/20/2022 FINDINGS: There is an old fracture at the radial head. There are chronic calcifications or osseous densities adjacent to the radial head and lateral epicondyles consistent with old injury and calcific tendinitis. Plate-screw fixation of the distal radius shows no hardware complication. There are old healed fractures distally of the radius and ulna. No acute fracture or dislocation seen at the left forearm. There are ueqm-ux-esgugvjs scattered degenerative changes at the IP joints. No acute fracture or dislocation seen at the left hand. IMPRESSION: No acute fracture seen. Otherwise as described. ACT 112: Negative or not required by law. Electronically signed by: Tang Montague M.D. 09/09/2024 1:53 PM Abdomen/Pelvis CT 09/09/24 12:[address] WITHOUT CONTRAST HISTORY: trauma TECHNIQUE: Multiaxial CT images of the abdomen and pelvis were performed without contrast. A dose lowering technique was utilized adhering to the principles of ALARA. COMPARISON STUDY: None FINDINGS: ABDOMEN: There is a tiny cyst in the liver adjacent to the gallbladder fossa. Liver, gallbladder, spleen, pancreas, kidneys, and adrenal glands show no evidence of acute injury on this non-IV contrast study. There is no hydronephrosis. There are a few small cysts of the kidneys. There is a 1.5 cm right adrenal nodule with Hounsfield density of 3, consistent with adrenal adenoma. There are scattered atherosclerotic calcifications. No abdominal aortic aneurysm. There is a small hiatal hernia. Pelvis: Urinary bladder is grossly unremarkable. No bowel inflammation or obstruction. There is moderate retained stool. No free fluid, free air, or hematoma seen. Osseous structures: There is osteopenia. Scoliosis and degenerative changes are present at the lumbar spine. There is grade 2 anterolisthesis of L4 on 5. There are acute nondisplaced fractures at the right transverse processes of L2 and L3. No other acute fractures seen. IMPRESSION: 1. Acute nondisplaced fractures at the right transverse processes of L2 and L3. 2. No other acute injury is seen at the abdomen or pelvis. Otherwise as described. ACT 112: Negative or not required by law. The above report was generated using voice recognition software. It may contain grammatical, syntax or spelling errors. Electronically signed by: Tang Montague M.D. 09/09/2024 2:[address] 09/09/24 12:37 CT cervical spine wo con CT DOSE: 965.13 mGy.cm CLINICAL HISTORY: 74 years-old Female with Trauma. Acute head and neck trauma COMPARISON: Head CT of same day, CTA neck 03/03/2024 TECHNIQUE: Multiple axial CT images of the cervical spine were obtained without contrast. A dose lowering technique was utilized adhering to the principles of ALARA. FINDINGS: Multilevel degenerative changes including severe disc space narrowing with endplate irregularity and C3-C4, unchanged from prior. Additional moderate to severe disc space narrowing seen at C4-C5, C5-C6 and C6-C7. Moderate to severe multilevel facet arthrosis, most pronounced at C2-C3. No acute fracture or subluxation identified. The cervical soft tissues appear unremarkable. Pulmonary emphysema without pneumothorax. IMPRESSION: 1. No acute cervical spine fracture or subluxation. 2. Multilevel degenerative changes as above. ACT 112: Negative or not required by law. The above report was generated using voice recognition software. It may contain grammatical, syntax or spelling errors. Electronically signed by: Chet Patterson M.D. 09/09/2024 2:[address] 09/09/24 12:37 CT chest diagnostic wo con CT DOSE: 705.11 mGy.cm CLINICAL HISTORY: trauma. TECHNIQUE: Multiaxial CT images of the chest were performed without contrast. A dose lowering technique was utilized adhering to the principles of ALARA. COMPARISON STUDY: 12/03/2023 FINDINGS: There is a small hiatal hernia. There is mild emphysema. There is minimal atelectasis in the lung bases. There is no pulmonary contusion or pleural effusion. No pneumothorax. There is a mildly enlarged left axillary lymph node measuring 2 cm greatest axial dimension series 6 image 61, increased in size. No other enlarged adenopathy seen in the chest. No pericardial effusion. There are diffuse coronary artery and aortic calcifications. No mediastinal hematoma. There are minimally displaced fractures laterally at the right eighth and ninth ribs which appear acute. There are a few other subacute rib fractures. There is mild scoliosis. There is an interval acute appearing mild vertebral body compression fracture at T4. No other acute osseous finding seen. IMPRESSION: 1. Acute mild vertebral body compression fracture at T4 and minimally displaced acute fractures at the right eighth and ninth ribs. 2. No pneumothorax, pulmonary contusion, or pleural effusion. 3. No other acute injury seen in the chest. 4. Interval mildly enlarged left axillary lymph node. Suggest follow-up axillary ultrasound in 3-6 months to make sure that these findings are not progressive. ACT 112: Positive. There are findings on this exam that require communication between the performing entity and the patient following Patient Test Result Inf ormation Act ([place] Act 112) guidelines. Electronically signed by: Tang Montague M.D. 09/09/2024 2:[address] 09/09/24 12:37 CT SCAN OF THE BRAIN WITHOUT IV CONTRAST CLINICAL HISTORY: Fall. COMPARISON STUDY: MRI of the brain January 23, 2024. Head CT March 03, 2024. TECHNIQUE: Unenhanced axial CT scan of the brain was performed from the vertex to the skull base. A dose lowering technique was utilized adhering to the principles of ALARA. FINDINGS: Brain parenchyma: There is mild motion artifact. No acute intracranial hemorrhage, midline shift or mass effect is present. Gonzáles-white matter differentiation is preserved. White matter hypodensities are unchanged and favor small vessel disease. A densely calcified 1.5 cm extra-axial lesion overlying the left frontal convexity is unchanged. This represents a meningioma. Ventricles, sulci, cisterns: There is no hydrocephalus. The basal cisterns are patent. Calvarium: There are no calvarial fractures. Sinuses and mastoids: The visualized paranasal sinuses are clear. The mastoid air cells are well pneumatized. Orbits: The bony orbits are grossly intact. IMPRESSION: 1. No acute intracranial findings. No change in appearance of the brain. 2. No calvarial fractures. ACT 112: Negative or not required by law. Electronically signed by: Miller Napier M.D. 09/09/2024 2:21 PM ECG Additional Comments: ECG revealed NSR at 79 bpm; QTc 481 Code Status & VTE Plan Code Status DNR/DNI VTE Prophylaxis Plan VTE Prophylaxis will be ordered: Yes Supervising Physician Co-Signing Physician Notes PA Supervision Note: I personally saw and examined the patient. I verified all sinha points and agree with RENETTA Nash with the following exceptions and/or additions: S-Pt here with multiple falls, now with skin tear left hand, pain in ribs and back, found to have severe anemia. No melena or obvious bleeding. Reports a 15 lb weight loss unexplained and also has been regurgitating food lately. No change in bowel habits. O- Vitals reviewed Gen: [AAOx3, NAD] HEENT: [anicteric sclerae, EOMI] CV: [RRR no mgr nl S1S2] Pulm: [CTAB no wcr] Abd: [+BS soft NT ND no masses or hernias] Ext: [no edema] Skin: [no rashes, warm/dry] Neuro: [full strength throughout] CBC, BMP, iron studies reviewed ECG and CTs reviewed A/P-74 yo female here with falls, severe anemia, rib and spine fractures Give IV iron, IM B12, po B12, consult GI for EGD- could have colonoscopy as outpt-concern for occult malignancy given weight loss and anemia Pain control, back brace PG Care Time/CCT Total # of Minutes Spent Total Time Spent with Patient: Total time spent is greater than 50% in coordination of care (as documented) at patient's floor/unit and/or counseling patient: Coding [place] [address] INT INP/OBS CARE 3/75MIN Patient Type Established Medical Decision Making High Complexity Diagnoses Upper GI bleed K92.2 Iron deficiency anemia D50.9 Recurrent falls R29.6 Skin tear of left forearm without complication S51.812A Encounter type: initial encounter Compression fracture of T4 vertebra S22.040A Encounter type: initial encounter Fracture of L2 vertebra S32.029A Fracture of L3 vertebra S32.039A (4) Skin tear of left forearm without complication Encounter type: initial encounter Qualified Code(s): S51.812A - Laceration without foreign body of left forearm, initial encounter (5) Compression fracture of T4 vertebra Encounter type: initial encounter Qualified Code(s): S22.040A - Wedge compression fracture of fourth thoracic vertebra, initial encounter for closed fracture
--- NOTE | 2024-09-09 15:50 | Electrocardiogram Report ---
Test Reason : Blood Pressure : */* mmHG Vent. Rate : 79 BPM Atrial Rate : 79 BPM P-R Int : 134 ms QRS Dur : 84 ms QT Int : 420 ms P-R-T Axes : 42 -15 83 degrees QTcB Int : 481 ms Normal sinus rhythm Septal infarct (cited on or before 17-May-2023) Nonspecific T wave abnormality Abnormal ECG When compared with ECG of 03-Mar-2024 09:03, No significant change was found Confirmed by Colin Forman ([id number]) on 09/09/2024 3:50:08 PM Referred By: REFERRED SELF Confirmed By: Colin Forman
[2024-09-09] MEDS ORDERED: PANTOPRAZOLE BOLUS/DRIP IV STA (16:14)
[2024-09-09] MEDS ORDERED: PANTOprazole 80 MG in DEXTROSE 5% 100 ML IV ONE (16:14)
[2024-09-09] MEDS: PANTOprazole 40 MG in DEXTROSE 5% MINI-B 100 ML IV SCH (16:55)
[2024-09-09] MEDS: DIPHTHER/TETAN/PERTUS Vaccine (Tdap, Adol/Adult) 0.5mL IM ONE (16:58)
[2024-09-09 17:01] LABS: C Reactive Protein 3.19 mg/dl (0-0.5)
[2024-09-09] MEDS: IRON SUCROSE 300 MG in SODIUM CHLORIDE 0.9% 250 ML IV ONE (17:52)
[2024-09-09] MEDS ORDERED: traMADol HCL 50 MG TABLET PO PRN (19:25)
[2024-09-09] MEDS ORDERED: MELATONIN 3 MG TAB PO PRN (19:25)
[2024-09-09] MEDS: CYANOCOBALAMIN 1000 MCG/ML VIAL IM ONE (21:50)
[2024-09-09] MEDS: ceFAZolin 2000MG 2,000 MG/15 ML SYR IV SCH (22:39)
[2024-09-09] MEDS: MoRPHine SULFATE 2 MG/ML CARP IV STA (23:31)
[2024-09-10 06:47] LABS: Hematocrit (blood only) 21.5 % (37.0-47.0); Hemoglobin 6.5 g/dl (12.0-16.0); Mean Corpuscular Hgb Conc 30.2 g/dL (32.0-36.0); Mean Corpuscular Volume 72.9 fL (80.0-100.0); Mean Platelet Volume 10.3 fL (9.4-12.4); Platelet Count 290 K/uL (130-400); RDW Coefficient of Variation 15.9 % (11.5-14.5); RDW Standard Deviation 41.9 fL (36.4-46.3); Red Blood Count 2.95 M/uL (4.20-5.40); White Blood Count 5.71 K/ul (4.8-10.8)
[2024-09-10 07:08] LABS: BUN Creatinine Ratio 16.9 (10-20); C Reactive Protein 1.7 mg/dl (0-0.5); Calcium 7.6 mg/dl (8.6-10.3); Potassium 3.1 mmol/L (3.5-5.1)
[2024-09-10 07:16] LABS: Basophils # (auto) 0.04 K/uL (0.00-0.20); Basophils % (auto) 0.7 %; Eosinophils # (auto) 0.39 K/uL (0.00-0.50); Eosinophils % (auto) 6.8 %; Immature Granulocytes # (auto) 0.02 K/uL (0.01-0.20); Immature Granulocytes % (auto) 0.4 %; Lymphocytes # (auto) 1.32 K/uL (1.20-3.40); Lymphocytes % (auto) 23.1 %; Microcytosis Present; Monocytes # (auto) 0.47 K/uL (0.11-0.59); Monocytes % (auto) 8.2 %; Neutrophils # (auto) 3.47 K/uL (1.40-6.50); Neutrophils % (auto) 60.8 %; Ovalocytes 1+; Polychromasia 1+
[2024-09-10] MEDS ORDERED: SODIUM CHLORIDE 0.9% 100 ML IV PRN (08:12)
[2024-09-10] MEDS ORDERED: NON-FORMULARY MEDICATION (Ferrous Sulfate 325 mg (65 mg iron) tablet) PO SCH (09:00)
[2024-09-10] MEDS: POTASSIUM CHLORIDE / WTR 10 MEQ/100 ML PLCT IV SCH (09:51)
--- NOTE | 2024-09-10 10:15 | Gastrointestinal Consultation ---
Date of Consultation September 10, 2024 Assessment & Plan (1) Iron deficiency anemia: (2) Fecal occult blood test positive: Plan Patient found to have worsening anemia with heme positive stools during her evaluation for her recent fall. she reports that she has never had a colonoscopy or EGD. She does endorse regular acid reflux in the setting of regular nsaid use. - recommend avoidance of Nsaids. - continue with protonix drip for now. - continue to monitor hgb/hct and transfuse as needed. - we discussed having her set up for an EGD and colonoscopy to further evaluate anemia, but for now, she wants to think about this. Can reassess on afternoon rounds. - patient requesting diet, can advance to clears for now. Supervising Physician Co-Signing Physician Notes Iron deficiency anemia weight loss. Decreased appetite. Patient has a history of a large amount of Excedrin use. States she switched to naproxen when Excedrin became too expensive. Denies abby melena or hematochezia. No upper and lower endoscopy that she can recall. Iron deficiency course concern for gastrointestinal blood loss. Upper GI tract is certainly possible based on her history. Colon polyp and neoplasia not excluded. Reviewed with patient recommendation of upper and lower endoscopy. Seems agreeable. Proceed tomorrow. History of Present Illness Reason for Consultation: MARIAH ? EGD and Colonoscopy Requesting Physician: Marcelo FIORE Attending Physician: Karen Contreras MD History of Present Illness Patient is a 74 year old female with a past medical history of degenerative spondylolithiasis, scoliosis, recurrent falls, T4 compression fracture (on 02/2024), vitamin D deficiency, anxiety, depression, and HTN who presented on 09/09 to the ED for recurrent falls. Patient lives by herself in a senior apartment and reports that she fell when taking her trash out of her apartment door. During evaluation in the ED, she was found to be anemic with hgb of 7 and her stools were brown and heme positive which prompted the GI consult. she denies any changes in her stools, but tells me she does not move her bowels daily. no blood in the stools that she can see. stools can be dark at times. she also admits to acid reflux and uses regular naproxen as an outpatient for joint pain. she has never had a colonoscopy or EGD. The remainder of the GI ROS were unremarkable. CT 09/09/24 Acute nondisplaced fractures at the right transverse processes of L2 and L3. No other acute injury is seen at the abdomen or pelvis. moderate retained stool. Allergies Allergy/AdvReac Type Severity Reaction Status Date / Time Sulfa (Sulfonamide Allergy Intermediate BUMPS ON Verified 09/09/24 15:12 Antibiotics) TONGUE hydrocodone AdvReac Intermediate Vomiting Verified 09/09/24 15:12 Home Medications Medication Instructions Recorded Confirmed Type afcibso-jezpdbxmrzlsm-znwohhgk 250 1 tab PO UD 05/23/21 09/09/24 History mg-250 mg-65 mg tablet (Excedrin Extra Strength) compr.stocking,knee,long,small #12 ea 04/01/22 03/11/24 Rx multivitamin (Multiple Vitamins 1 tab PO DAILY 04/01/22 09/09/24 History tablet) paroxetine HCl 40 mg tablet 40 mg PO DAILY 90 days #90 tabs 11/30/23 09/09/24 Rx naproxen sodium 220 mg tablet 220 - 440 mg PO BID PRN Pain 12/04/23 09/09/24 History (Aleve) bumetanide 0.5 mg tablet 0.5 mg PO DAILY PRN lower 12/19/23 09/09/24 Rx extremity edema #30 tabs calcitonin (salmon) 200 1 spray NA DAILY #10 mL 03/06/24 09/09/24 Rx unit/actuation nasal spray Wheeled Walker #1 ea 03/11/24 03/11/24 Rx tramadol 50 mg tablet 50 mg PO Q6H PRN pain #10 tabs 03/20/24 09/09/24 Rx cholecalciferol (vitamin D3) 25 25 mcg PO DAILY #30 caps 06/27/24 09/09/24 Rx mcg (1,000 unit) capsule ferrous sulfate 325 mg (65 mg 325 mg PO Q OTHER DAY #30 tabs 06/27/24 09/09/24 Rx iron) tablet mecobalamin (vitamin B12) 1,000 1,000 mcg PO DAILY #30 tabs 06/27/24 09/09/24 Rx mcg chewable tablet cholecalciferol (vitamin D3) 1,250 50,000 unit PO WK 09/09/24 09/09/24 History mcg (50,000 unit) capsule Patient History Medical History Kidney infection Bronchitis Surgical History H/O wrist surgery 2021 History of surgery on left wrist History of tubal ligation 1978 History of section 1982 History of tonsillectomy and adenoidectomy 1955 Family History Uncle Lung cancer Aunt Breast cancer Other COPD (chronic obstructive pulmonary disease) Denies family history of Ovarian cancer Prostate cancer Diabetes Myocardial infarction Colorectal cancer Stroke Social History Smoking Status: Current some day smoker Tobacco Type: Cigarettes Age Started Using Tobacco: 16; packs per day: 0.50; Cigarettes Per Day: 2; Smoking End Date: last smoke 1 week ago, has been cutting back; Second Hand Exposure: Yes; Do You Dip or Chew Tobacco: No; Tobacco Cessation Education Requested by Patient: No Hx Alcohol Use: Yes Alcohol type: beer and hard liquor Alcohol Intake Frequency: 2-3 x/Week Hx Substance Use: No Preferred Language: Swedish Communication Ability: Effective Visual Impairment: No Limitations Hearing Ability: Normal Warehouse Assistant Required: No Beliefs That Will Affect Care: None marital status: / Current Living Situation: Personal Care Facility Current Living Situation Comment: [facility] current occupational status: retired Other Information That Helps Us Care for You: No Feels Safe at Home: Yes Safety Concerns: Feels Safe At This Time Safety Concerns Comment: does not feel safe at her building due safety risks/fell on the ice Childhood Exposure to Second-Hand Smoke: No Diet: low salt and regular caffeine: No Dental Care, Regularly: No Physical Activity Frequency: Does not Exercise Seatbelt Use: always Sunscreen Use: No Assistive Devices: Walker Review of Systems Review of Systems: All systems reviewed & are unremarkable except as noted in HPI & below Physical Exam Constitutional: WD/WN, vitals as above Respiratory: normal respiratory effort, lungs clear to auscultation Cardiovascular: Rate/Rhythm: regular rate and regular rhythm Gastrointestinal (Abdomen): normal bowel sounds, soft, nontender, no hepatosplenomegaly Psychiatric: Orientation: alert and oriented x 3 Affect: euthymic affect Results & Data Vital Signs (Past 12 Hours) Vital Signs Temp Pulse Pulse Pulse Resp BP BP 09/10/24 08:07 97.9 F 69 17 117/63 09/10/24 08:03 09/10/24 07:17 66 09/10/24 03:37 97.5 F L 66 18 107/65 09/10/24 01:00 97.9 F 66 18 117/58 L 09/09/24 22:50 09/09/24 22:50 98.2 F 79 18 147/70 H Pulse Ox O2 Del Method O2 Flow Rate 09/10/24 08:07 92 Nasal Cannula 2 09/10/24 08:03 Nasal Cannula 2 09/10/24 07:17 09/10/24 03:37 94 Nasal Cannula 2 09/10/24 01:00 91 Nasal Cannula 2 09/09/24 22:50 Nasal Cannula 2 09/09/24 22:50 92 Room Air, Nasal Cannula 2 Coding Level of Care Code 16494 INT INP/OBS CARE 2/55MIN Diagnoses Iron deficiency anemia D50.9 Fecal occult blood test positive R19.5
[2024-09-10] MEDS: CALCITONIN SALMON NA 200 IU/AC 3.7 ML BTL SCH (10:20)
[2024-09-10] MEDS: CYANOCOBALAMIN (B-12) 500 MCG TABLET PO SCH (10:21)
[2024-09-10] MEDS: PARoxetine HCL 20 MG TAB PO SCH (10:21)
[2024-09-10] MEDS: CHOLECALCIFEROL 25 MCG (1000 UNITS) TAB PO SCH (10:21)
[2024-09-10] MEDS: IRON SUCROSE 300 MG in SODIUM CHLORIDE 0.9% 250 ML IV SCH (16:29)
[2024-09-10] MEDS: LAVAGE SOLUTION 4000ML PO SCH (17:18)
--- NOTE | 2024-09-10 17:33 | Hospitalist Progress Note ---
"Date of Service September 10, 2024 Assessment & Plan (1) Upper GI bleed: (2) Iron deficiency anemia: (3) Recurrent falls: (4) Skin tear of left forearm without complication: Plan This patient is a 74-year-old female with a history of recurrent falls, iron deficiency anemia, vitamin B12 deficiency, vitamin D deficiency, lumbar spinal stenosis, anxiety/depression, who presented on 09/09 for recurrent falls and found to have T4 compression fracture, L2 and L3 nondisplaced acute transverse process fractures, left forearm skin tear, and severe anemia with hemoglobin of 7.0 and heme positive stool. #Iron deficiency anemia/suspected upper GI bleed-Hgb 7.0 on arrival; MCV low at 73, iron studies show severe iron deficiency with transferrin saturation of 4%. She has not been taking iron pills at home and has never had a GI workup previously. Hemoccult stool positive but no obvious melena. She has been taking NSAIDs and Excedrin frequently, but otherwise does not take blood thinners. Her hemoglobin dropped to 6.5 after admission after receiving IV fluids but no obvious bleeding ongoing. -Continue Venofer 300 Mg IV once daily x 3 doses - Transfuse PRBCs 1 unit on 09/10 -Continue Protonix IV 80 mg bolus + drip -Appreciate GI consultation-plan for EGD and colonoscopy in 09/11 -Continue to supplement B12 IM and po #Recurrent falls-Head CT revealed no acute findings, left forearm/wrist/hand without fractures, but with swelling of the hand and possible cellulitis. Patient ambulates with a walker at baseline; endorses falling once daily -PT/OT evaluations pending -Fall precautions -Supplement Vit D #Acute nondisplaced transverse L2 and L3 fractures-Orthotics consulted for LSO brace but patient is declining this at this time -Continue Tylenol as needed for pain #T4 compression fracture-Chronic - Continue calcitonin nasal spray daily - Start vitamin D #Left forearm skin tear | left hand cellulitis-No leukocytosis; afebrile, Patient declined tetanus shot on admission. X-rays without fracture. CRP mildly elevated and coming down - Continue IV Ancef and convert to Keflex on discharge for 7-day course -Continue Daily wound care #Anxiety/depression-no acute issue -Continue paroxetine DVT prophylaxis-SCDs Disposition-continues to medical floor with telemetry Admission and Anticipated Discharge Date Admission Date: September 09, 2024 Subjective Patient having swelling in the left hand and forearm that is concerning to her. No melena or bowel movements. She is agreeable to EGD and colonoscopy for tomorrow. No chest pains or shortness of breath noted. I discussed her care with GI Telemetry normal sinus rhythm with rates in the 60s to 70s Physical Exam Constitutional: WD/WN, vitals as above Respiratory: normal respiratory effort, lungs clear to auscultation Cardiovascular: RRR, no murmur, no edema Gastrointestinal (Abdomen): normal bowel sounds, soft, nontender, no hepatosplenomegaly Musculoskeletal: Left hand with edema and positive TTP over dorsal metatarsals, scab on right first webspace without surrounding erythema, no drainage Results & Data Results & Data Vital Signs (Past 12 Hours) Vital Signs Temp Pulse Pulse Pulse Resp BP BP 09/10/24 16:02 80 09/10/24 15:53 37 C 76 17 140/67 09/10/24 13:23 36.7 C 85 18 139/73 09/10/24 12:16 36.8 C 77 18 154/74 H 09/10/24 12:06 36.8 C 76 18 158/81 H 09/10/24 11:33 36.6 C 70 18 09/10/24 11:32 36.6 C 70 18 161/77 H 09/10/24 10:31 36.4 C L 71 18 144/75 H 09/10/24 10:29 36.4 C L 66 18 129/70 09/10/24 10:10 36.7 C 74 18 124/65 09/10/24 08:07 36.6 C 69 17 117/63 09/10/24 08:03 09/10/24 07:17 66 BP Pulse Ox O2 Del Method O2 Flow Rate 09/10/24 16:02 09/10/24 15:53 91 Room Air 09/10/24 13:23 95 0 09/10/24 12:16 92 0 09/10/24 12:06 96 2 09/10/24 11:33 161/77 H 100 Nasal Cannula 2 09/10/24 11:32 100 2 09/10/24 10:31 98 2 09/10/24 10:29 96 2 09/10/24 10:10 98 2 09/10/24 08:07 92 Nasal Cannula 2 09/10/24 08:03 Nasal Cannula 2 09/10/24 07:17 Laboratory Results CBC, BMP, CRP reviewed PG Care Time/CCT Total # of Minutes Spent Total Time Spent with Patient: Total time spent is greater than 50% in coordination of care (as documented) at patient's floor/unit and/or counseling patient: Coding Level of Care Code 98732 SUB INP/OBS CARE 3/50MIN Diagnoses Upper GI bleed K92.2 Iron deficiency anemia D50.9 Recurrent falls R29.6 Skin tear of left forearm without complication S51.812A Encounter type: initial encounter (4) Skin tear of left forearm without complication Encounter type: initial encounter Qualified Code(s): S51.812A - Laceration without foreign body of left forearm, initial encounter"
[2024-09-11 06:35] LABS: Basophils # (auto) 0.04 K/uL (0.00-0.20); Basophils % (auto) 0.6 %; Eosinophils # (auto) 0.37 K/uL (0.00-0.50); Eosinophils % (auto) 5.9 %; Hemoglobin 8.9 g/dl (12.0-16.0); Immature Granulocytes # (auto) 0.03 K/uL (0.01-0.20); Immature Granulocytes % (auto) 0.5 %; Lymphocytes # (auto) 1.19 K/uL (1.20-3.40); Lymphocytes % (auto) 18.9 %; Mean Corpuscular Hemoglobin 23.4 pg (25.0-34.0); Mean Corpuscular Hgb Conc 31.8 g/dL (32.0-36.0); Mean Corpuscular Volume 73.5 fL (80.0-100.0); Mean Platelet Volume 9.1 fL (9.4-12.4); Monocytes # (auto) 0.63 K/uL (0.11-0.59); Neutrophils # (auto) 4.05 K/uL (1.40-6.50); Neutrophils % (auto) 64.1 %; Platelet Count 338 K/uL (130-400); RDW Coefficient of Variation 15.9 % (11.5-14.5); RDW Standard Deviation 41.6 fL (36.4-46.3); Red Blood Count 3.81 M/uL (4.20-5.40); White Blood Count 6.31 K/ul (4.8-10.8)
[2024-09-11 07:04] LABS: BUN Creatinine Ratio 11.7 (10-20); Magnesium 1.9 mg/dl (1.7-2.4); Potassium 3.5 mmol/L (3.5-5.1)
[2024-09-11] MEDS ORDERED: Nursing to Pharmacy Communication SCH (07:45)
[2024-09-11] MEDS: ACETAMINOPHEN 325 MG TAB PO PRN (07:46)
--- NOTE | 2024-09-11 09:31 | XRay Report ---
XR abdomen 2V w PA chest CLINICAL HISTORY: constipation p bowel prep-assess for dist stomach COMPARISON STUDY: 09/09/2024 FINDINGS: CHEST: Stable mild cardiomegaly without pulmonary vascular congestion. There is interval mild bluntin g of the left costophrenic angle. No pneumothorax. ABDOMEN: There is moderate retained stool. No bowel obstruction seen. No gross free air. Stable scoli osis. IMPRESSION: 1. Interval trace left pleural effusion. 2. Moderate retained stool without bowel obstruction. ACT 112: Negative or not required by law. Electronically signed by: Tang Montague M.D. 09/11/2024 9:30 AM
--- NOTE | 2024-09-11 10:54 | History & Physical Bridge Note ---
Date of Service September 11, 2024 History & Physical Bridge Note I have examined the patient, reviewed the History & Physical and in the interval since the performance of the History & Physical I have noted the following changes of clinical significance: no changes noted. patient finished most of her prep. she has not moved her bowels with this. xray this morning shows moderate stool but no obstruction. pt denies chest pain, sob, nausea, vomiting, abdominal pain. - discussed with Dr. Boss. If she starts to move her bowels, we can proceed with EGD/Colonoscopy. If not, we will just proceed with EGD today. Supervising Physician Co-Signing Physician Notes Patient states drink most of the prep does had minimal bowel movements. Abdominal series does not show obstruction gastric distention significant fluid retention. Still described as moderate stool. Reviewed with the hospitalist Dr. Contreras. She would like us to proceed with EGD today as she is not sure the patient will consent to further preparation and is concerned about discharge prior to any investigations the patient is at significant risk for gastric ulceration due to excessive Excedrin use and naproxen that he is iron deficient and upper GI's source is a high probability. Proceed with EGD today. Potentially colon If the patient will consent to further prep. Risk benefits of upper endoscopy addressed informed consent obtained
--- NOTE | 2024-09-11 11:17 | Anesthesiology Consultation ---
Date of Service September 11, 2024 Assessment & Plan (1) Encounter for pre-operative examination: Chart Review Chart Review: Acceptable Risk for Surgery and Patient NOT seen in Pre Admission Testing Consults Requested none History Surgery Operation Date: 09/11/24 16:45 Proposed Procedures p Colonoscopy EGD Dr. Gera Boss MD Height/Weight Height: 5 ft 4 in Weight: 50 kg Allergies Allergy/AdvReac Type Severity Reaction Status Date / Time Sulfa (Sulfonamide Allergy Intermediate BUMPS ON Verified 09/09/24 15:12 Antibiotics) TONGUE hydrocodone AdvReac Intermediate Vomiting Verified 09/09/24 15:12 Medications Home Medications Medication Instructions Recorded Confirmed Last Taken fslhukz-ykmuxrmjojyat-wcgltbkd 250 1 tab PO UD 05/23/21 09/09/24 12/03/23 mg-250 mg-65 mg tablet (Excedrin Extra Strength) compr.stocking,knee,long,small #12 ea 04/01/22 03/11/24 Unknown multivitamin (Multiple Vitamins 1 tab PO DAILY 04/01/22 09/09/24 12/03/23 tablet) paroxetine HCl 40 mg tablet 40 mg PO DAILY 90 days #90 tabs 11/30/23 09/09/24 12/03/23 naproxen sodium 220 mg tablet 220 - 440 mg PO BID PRN Pain 12/04/23 09/09/24 Unknown (Aleve) bumetanide 0.5 mg tablet 0.5 mg PO DAILY PRN lower 12/19/23 09/09/24 Unknown extremity edema #30 tabs calcitonin (salmon) 200 1 spray NA DAILY #10 mL 03/06/24 09/09/24 Unknown unit/actuation nasal spray Wheeled Walker #1 ea 03/11/24 03/11/24 Unknown tramadol 50 mg tablet 50 mg PO Q6H PRN pain #10 tabs 03/20/24 09/09/24 Unknown cholecalciferol (vitamin D3) 25 25 mcg PO DAILY #30 caps 06/27/24 09/09/24 Unknown mcg (1,000 unit) capsule ferrous sulfate 325 mg (65 mg 325 mg PO Q OTHER DAY #30 tabs 06/27/24 09/09/24 Unknown iron) tablet mecobalamin (vitamin B12) 1,000 1,000 mcg PO DAILY #30 tabs 06/27/24 09/09/24 Unknown mcg chewable tablet cholecalciferol (vitamin D3) 1,250 50,000 unit PO WK 09/09/24 09/09/24 Unknown mcg (50,000 unit) capsule Active Medications Generic Name Dose Route Start Last Admin Trade Name Freq PRN Reason Stop Dose Admin Acetaminophen 650 mg 09/09/24 19:25 09/11/24 07:46 Acetaminophen 325 Mg Tab PO 10/09/24 19:24 650 mg Q4H PRN Administration Pain or Fever Calcitonin [place] 1 sprays 09/10/24 09:00 09/11/24 07:46 Calcitonin [place] Na 200 Iu/Ac 3.7 Ml Btl NA 10/10/24 08:59 1 sprays DAILY NEHEMIAS Administration Cyanocobalamin 1,000 mcg 09/10/24 09:00 09/11/24 07:46 Cyanocobalamin (B-12) 500 Mcg Tablet PO 10/10/24 08:59 1,000 mcg DAILY NEHEMIAS Administration Pantoprazole Sodium 40 mg/ 100 mls @ 20 mls/hr 09/09/24 16:30 09/11/24 10:28 Dextrose IV 10/09/24 16:29 8 mg/hr Q5H NEHEMIAS 20 mls/hr Administration 8 MG/HR Iron Sucrose 300 mg/ Sodium 265 mls @ 176.667 mls/hr 09/10/24 16:30 09/10/24 18:35 Chloride IV 09/13/24 16:29 Infused TODAY NEHEMIAS Infusion Cefazolin Sodium 2,000 mg in 15 mls @ 2.5 mls/min 09/09/24 22:30 09/11/24 06:18 Ancef 2000mg IV 09/16/24 22:29 2.5 mls/min Q8H NEHEMIAS Administration Vitamin D 25 mcg 09/10/24 09:00 09/11/24 07:46 Cholecalciferol 25 Mcg (1000 Units) Tab PO 10/10/24 08:59 25 mcg DAILY NEHEMIAS Administration Past Medical History Medical History (Updated 09/11/24 @ 11:19 by Larry Larson MD) Encounter for pre-operative examination Recurrent falls Iron deficiency anemia Upper GI bleed Compression fracture of T4 vertebra (~03/03/24) Compression fracture of the superior endplate of T4 40% loss of vertebral body height. Hypertension Kidney infection Bronchitis #Acute nondisplaced transverse L2 and L3 fractures-Orthotics consulted for LSO brace but patient is declining this at this time Past Family History Family History Uncle Lung cancer Aunt Breast cancer Other COPD (chronic obstructive pulmonary disease) Denies family history of Ovarian cancer Prostate cancer Diabetes Myocardial infarction Colorectal cancer Stroke Past Surgical History Surgical History H/O wrist surgery 2021 History of surgery on left wrist History of tubal ligation 1978 History of section 1982 History of tonsillectomy and adenoidectomy 1955 Social History Smoking Status: Current some day smoker Smoking cigarettes per day: 2 Do You Dip or Chew Tobacco: No Smoking End Date: last smoke 1 week ago, has been cutting back Hx Alcohol Use: Yes Alcohol type: beer and hard liquor alcohol intake frequency: 0-2 drinks per day Alcohol Intake Frequency Comment: has not had a drink in 2 weeks, has been cutting back Hx Substance Use: No substance use type: does not use Physical Exam Vital Signs Last Vital Signs Temp 36.7 C 09/11/24 07:30 Pulse 76 09/11/24 07:30 Resp 18 09/11/24 07:30 BP 167/68 H 09/11/24 07:30 Pulse Ox 92 09/11/24 07:30 O2 Del Method Room Air 09/11/24 08:04 O2 Flow Rate 0 09/10/24 13:23 Testing Laboratory Results 09/11/24 05:37 09/11/24 05:37 PT 9.8 Seconds (9.0-12.0) 09/09/24 13:02 INR 0.9 (0.9-1.1) 09/09/24 13:02 APTT 26 Seconds (21-31) 09/09/24 13:02 Blood Type B Positive 09/09/24 13:16 Antibody Screen NEGATIVE 09/09/24 13:16 Electrocardiogram Date: 09/09/24 DICTATED BY: Colin Forman MD Test Reason : Blood Pressure : */* mmHG Vent. Rate : 79 BPM Atrial Rate : 79 BPM P-R Int : 134 ms QRS Dur : 84 ms QT Int : 420 ms P-R-T Axes : 42 -15 83 degrees QTcB Int : 481 ms Normal sinus rhythm Septal infarct (cited on or before 17-May-2023) Nonspecific T wave abnormality Abnormal ECG When compared with ECG of 03-Mar-2024 09:03, No significant change was found Confirmed by Colin Forman ([id number]) on 09/09/2024 3:50:08 PM Other Testing XR abdomen 2V w PA chest CLINICAL HISTORY: constipation p bowel prep-assess for dist stomach COMPARISON STUDY: 09/09/2024 FINDINGS: CHEST: Stable mild cardiomegaly without pulmonary vascular congestion. There is interval mild blunting of the left costophrenic angle. No pneumothorax. ABDOMEN: There is moderate retained stool. No bowel obstruction seen. No gross free air. Stable scoliosis. IMPRESSION: 1. Interval trace left pleural effusion. 2. Moderate retained stool without bowel obstruction.
[2024-09-11 11:48] VITALS: RESP 16; TEMP 97.5
--- NOTE | 2024-09-11 12:20 | GI REPORT ---
[facility] Patient: SWAPNIL HU : 1950 Sex at : Female Age: 74 Years Procedure: Upper GI endoscopy Date: 09/11/2024 Attending Physician: Ja Boss MD Referring MD: Karen Contreras Md Indications: - Iron deficiency, weight loss. History of aspirin and NSAID use Medications: - Monitored Anesthesia Care Complications: - No immediate complications. Estimated Blood Loss: - Estimated blood loss: None. Procedure: - The egd scope was introduced through the mouth and advanced to the second part of the duodenum. - The upper GI endoscopy was accomplished without difficulty. - The patient tolerated the procedure well. Findings: - LA Grade D (one or more mucosal breaks involving at least 75% of esophageal circumference) esophagitis with no bleeding was found in the lower third of the esophagus. - Minimal if any gastritis and duodenitis she did have a scar in the antrum consistent with past ulceration though no current activity - The examined duodenum was normal. Impression: - Minimal if any gastritis and duodenitis she did have a scar in the antrum consistent with past ulceration though no current activity - LA Grade D reflux esophagitis with no bleeding. - Normal examined duodenum. - No specimens collected. - Severe erosive esophagitis she has a cratered ulcer at the GE junction appearing benign there may be some relative stricturing of the GE junction. We did not dilate here due to this ulceration. She has not moderate-sized hiatal hernia likely the source for her severe reflux. Treated with twice daily PPI therapy. I would have her return in 8 weeks to 12 weeks to evaluate healing biopsy the healed ulceration areas to exclude Espinosa's. Can have her undergo esophageal dilatation if required at that time. To complete patient's iron deficiency workup should consider colonoscopy at that time. That had been planned for today though the patient's prep was inadequate Recommendation: Procedure Code(s): - 07052, Esophagogastroduodenoscopy, flexible, transoral; diagnostic, including collection of specimen(s) by brushing or washing, when performed (separate procedure) Diagnosis Code(s): - K21.00, Gastro-esophageal reflux disease with esophagitis, without bleeding CPT(R) - 2023 copyright [employer]. All Rights Reserved. The CPT codes, CCI edits and ICD codes generated are intended as suggestions and were generated based on input data. These codes are preliminary and upon energy conservation representative review may be revised to meet current compliance and payer requirements. The provider is responsible for the final determination of appropriate codes, and modifiers. Ja Boss MD This document has been electronically signed. Note Initiated:09/11/2024 Note Completed:09/11/2024 12:19 PM \\[email or web address]\[email or web address]\Results\[email or web address]\[id number]
[2024-09-11 12:31] VITALS: O2SAT 95
[2024-09-11 12:48] VITALS: BP 150/76
--- NOTE | 2024-09-11 12:50 | Anesthesiology Progress Note ---
Date of Service September 11, 2024 Anesthesia Post Procedure Vital Signs Vital Signs: Temp Pulse Pulse Pulse Resp BP BP 09/11/24 12:42 72 16 150/76 H 09/11/24 12:29 72 16 130/76 09/11/24 12:14 72 16 85/56 L 09/11/24 11:46 36.4 C L 70 16 150/84 H 09/11/24 11:25 36.5 C 67 18 138/80 09/11/24 08:04 09/11/24 07:30 36.7 C 76 18 09/11/24 07:08 73 09/11/24 03:41 37.1 C 75 20 09/10/24 23:51 37.1 C 76 20 09/10/24 21:35 77 09/10/24 19:45 09/10/24 19:42 36.9 C 72 20 09/10/24 19:25 09/10/24 16:02 80 09/10/24 15:53 37 C 76 17 140/67 09/10/24 13:23 36.7 C 85 18 139/73 BP Pulse Ox Pulse Ox O2 Del Method O2 Del Method O2 Flow Rate 09/11/24 12:42 95 Room Air 09/11/24 12:29 95 Room Air 09/11/24 12:14 97 Room Air 09/11/24 11:46 95 Room Air 09/11/24 11:25 90 Room Air 09/11/24 08:04 Room Air 09/11/24 07:30 167/68 H 92 Room Air 09/11/24 07:08 09/11/24 03:41 137/75 92 Room Air 09/10/24 23:51 117/69 90 Room Air 09/10/24 21:35 09/10/24 19:45 Room Air 09/10/24 19:42 131/85 95 Room Air 09/10/24 19:25 95 Room Air 09/10/24 16:02 09/10/24 15:53 91 Room Air 09/10/24 13:23 95 0 Pain Intensity Back: Pain Intensity: 9 Transfer of Care Handoff Completed per policy Notes Mental Status: alert / awake / arousable and participated in evaluation Patient Amnestic to Procedure: Yes Nausea / Vomiting: adequately controlled Pain: adequately controlled Airway Patency, RR, SpO2: stable & adequate BP & HR: stable & adequate Hydration State: stable & adequate Anesthetic Complications: no major complications apparent and Pt Satisfied with anesthetic care
[2024-09-11 13:53] VITALS: PULSE 76
[2024-09-11] MEDS: LIDOCAINE 2% 2 ML VIAL/AMP(20MG/ML) INFIL ONE (14:39)
[2024-09-11] MEDS: PROPOFOL IV EMULSION 10 MG/ML 20 ML VIAL IV ONE (14:39)
--- NOTE | 2024-09-11 15:49 | Discharge Summary ---
Discharge Summary Date of Service September 11, 2024 Principal Dx & Hospital Course #1 = Principal Diagnosis (1) Upper GI bleed: (2) Iron deficiency anemia: (3) Recurrent falls: (4) Skin tear of left forearm without complication: Plan This patient is a 74-year-old female with a history of recurrent falls, iron deficiency anemia, vitamin B12 deficiency, vitamin D deficiency, lumbar spinal stenosis, anxiety/depression, who presented on 09/09 for recurrent falls and found to have T4 compression fracture, L2 and L3 nondisplaced acute transverse process fractures, left forearm skin tear, and severe anemia with hemoglobin of 7.0 and heme positive stool. #Iron deficiency anemia/suspected upper GI bleed-Hgb 7.0 on arrival; MCV low at 73, iron studies show severe iron deficiency with transferrin saturation of 4%. She has not been taking iron pills at home and has never had a GI workup previously. Hemoccult stool positive but no obvious melena. She has been taking NSAIDs and Excedrin frequently, but otherwise does not take blood thinners. Her hemoglobin dropped to 6.5 after admission after receiving IV fluids but no obvious bleeding ongoing. She was transfused 1 unit of PRBCs and received 3 doses of IV Venofer 300 mg daily. Her Hgb improved to 8.9. She was started on a Protonix drip and had an EGD on 09/11 which showed severe erosive esophagitis with a cratered ulcer at the GE junction appearing benign there may be some relative stricturing of the GE junction-this was not dilated due to the current ulcer. She also had a moderate-sized hiatal hernia likely the source for her severe reflux. She did a colonoscopy prep but never had a single bowel movement. Acute abdominal series did show some retained stool but no acute issues. Colonoscopy was not performed. - Treat with Protonix 40 Mg p.o. twice daily x 3 months -return in 8 weeks to 12 weeks to gastroenterology to for reevaluation of healed ulceration area to exclude Espinosa's and possible esophageal dilatation if required at that time - Can also have colonoscopy in 8 to 12 weeks -discontinue Excedrin and all NSAIDs -Continue to supplement [id number] 1 dose of IM 1000 mcg in hospital and continue on 1000 mcg p.o. daily after discharge - Continue supplemental iron pills after discharge - Follow CBC as an outpatient #Recurrent falls-Head CT revealed no acute findings, left forearm/wrist/hand without fractures, but with swelling of the hand and possible very mild cellulitis. Patient ambulates with a walker at baseline; endorses falling once daily -PT/OT evaluations recommend rehab placement but patient chooses to go home -Supplement Vit D #Acute nondisplaced transverse L2 and L3 fractures-Orthotics consulted for LSO brace but patient is declining this at this time -Continue Tylenol and tramadol as needed for pain #T4 compression fracture-Chronic - Continue calcitonin nasal spray daily - Continue vitamin D #Left forearm skin tear | left hand cellulitis-No leukocytosis; afebrile, Patient declined tetanus shot on admission. X-rays without fracture. CRP mildly elevated and coming down - Received IV Ancef and convert to Keflex on discharge to finish out 7-day course -Continue Daily wound care #Anxiety/depression-no acute issue -Continue paroxetine DVT prophylaxis-SCDs Disposition-discharge to home Notes For Next Care Provider Needs colonoscopy and repeat EGD in 8 to 12 weeks Follow CBC in 1 to 2 weeks Admission HPI Per Admitting Provider Mrs. Foy is a 74-year-old female with PMH of degenerative spondylolithiasis, scoliosis, recurrent falls, T4 compression fracture (on 02/2024), vitamin D deficiency, anxiety, depression, and HTN. She presented on 09/09 for recurrent falls. Patient lives by herself in a senior apartment. She reports that she fell yesterday when taking her trash out her apartment door; the door hit her back and she fell forward into her walker. No head strike. No LOC. Not on blood thinners. However the walker did "rip" her left forearm, and she reports that the door hit her back hard. Patient reports she falls at home on average once per day. She does ambulate with a walker at baseline. Her recurrent falls began around 3 years ago after she fell on ice, and she reports since that time she has "never been the same". Patient took naproxen this morning for her left forearm pain. She did not take any other medications this morning. Patient manages her own medicine at home. However, she reports that she is not taking iron supplements every other day, as she did not know she had tube. No fever. No sick contacts. Patient is a current everyday tobacco cigarette smoker, but has been cutting back; used to be half PPD, but has only had 4 cigarettes in the past month. She endorses occasional alcohol use, with her last drink being 2 weeks ago (wine). She denies any prior history of GI bleeds or blood transfusions. Patient lives with her cat ("Josesito"). Patient's vitals are stable at time of admission. ED course: Cefazolin 2000 mg IV Protonix 80 mg IV bolus Fentanyl 25 mcg IV Acetaminophen 650 mg p.o. ROS: Patient endorses dizziness/lightheadedness when walking, JACKSON, double vision (ongoing), chest pressure/intermittent (attributes to anxiety/stress), OTT, abdominal discomfort, back pain, and left forearm skin tear. Patient denies fever, chills, night-sweats, SOB at rest, nausea, vomiting, diarrhea, melena, or blood in the urine/stool. Discharge Exam Constitutional WD/WN, vitals as above Respiratory normal respiratory effort, lungs clear to auscultation Cardiovascular RRR, no murmur, no edema Gastrointestinal (Abdomen) normal bowel sounds, soft, nontender, no hepatosplenomegaly Discharge Plan Discharge Items Patient Disposition: Home - Self-Care Reason For Visit: RECURRENT FALLS, GI BLEED Discharge Diagnosis: Fall with spinal transverse process fractures, rib fractures, left forearm skin tear Symptomatic severe iron deficiency anemia Severe esophagitis with esophageal ulcer Condition on Discharge: Fair Activity: As commented below Lifting: No more than 5 pounds Exercise/Sports: Gradually increase as tolerated Non-emergency contact: Primary Care Provider and Field Laboratory Operator Call non-emergency contact if: you have any medication questions, your symptoms worsen, your pain is not controlled, you have a fever, your wound has increased redness, your wound has increased drainage and your wound pain has increased Follow-up/Referrals: Bill Stanton DO [Primary Care Provider] - (Follow-up within 1 to 2 weeks after discharge) Ja Boss MD [Physician] - (Please follow-up in 8 to 12 weeks for repeat EGD and for colonoscopy) Diet: Regular Addtl Attending Provider Instructions: You were admitted after having a fall and found to have severe anemia. This is coming from bleeding in your esophagus from irritation and an ulcer likely from taking Excedrin and naproxen. Please do not take any more Excedrin, aspirin, naproxen, or any other NSAIDs (nonsteroidal anti-inflammatory drugs such as ibuprofen, Motrin, Aleve). You should take Protonix twice a day for the next 2 to 3 months and have a repeat EGD along with a colonoscopy to see if this is healed. Please continue daily wound care dressing changes to the wound on your arm with Xeroform or Vaseline soaked dressing, cover with gauze and secure with Kerlix wrap. Please continue on the antibiotics to prevent skin infection for 5 more days. Is very important that you follow-up with your primary care provider within 1 to 2 weeks. It is recommended that you go to rehab by physical and Occupational Therapy, but you have decided to return home. A prescription was faxed for you to get a new wheeled walker. Pending Studies at Discharge: No Stand-Alone Forms: My [facility], Smoking Cessation Medications and DC Order Prescriptions: New acetaminophen 325 mg Tablet 650 mg PO Q4H PRN (Reason: pain) Qty: 30 0RF cephalexin 500 mg capsule 500 mg PO Q8H Qty: 15 0RF pantoprazole [Protonix] 40 mg tablet,delayed release (DR/EC) 40 mg PO BID Qty: 60 2RF Continued paroxetine HCl 40 mg tablet 40 mg PO DAILY 90 Days Qty: 90 3RF Rx Instructions: LAST FILLED 05/12/24 FOR 90 DAYS/90 TABS. tramadol 50 mg tablet 50 mg PO Q6H PRN (Reason: pain) Qty: 10 0RF Rx Instructions: FILLED 03/22/24 FOR 10 TABS. ferrous sulfate 325 mg (65 mg iron) tablet 325 mg PO Q OTHER DAY Qty: 30 2RF Rx Instructions: PER PT "NEVER PICKED UP". cholecalciferol (vitamin D3) 25 mcg (1,000 unit) capsule 25 mcg PO DAILY Qty: 30 2RF Rx Instructions: PER PT "NEVER PICKED UP" mecobalamin (vitamin B12) 1,000 mcg tablet,chewable 1,000 mcg PO DAILY Qty: 30 2RF Rx Instructions: PER PT "NEVER PICKED UP" multivitamin [Multiple Vitamins] Tablet 1 tab PO DAILY (DME) compr.stocking,knee,long,small Misc See Rx Instructions .Route Qty: 12 0RF Rx Instructions: As directed bumetanide 0.5 mg tablet 0.5 mg PO DAILY PRN (Reason: lower extremity edema) Qty: 30 0RF Hold Instructions: Resume on 03/13/24. until seen by PCP Rx Instructions: filled 12/21 30 day supply (DME) [facility] See Rx Instructions .Route Qty: 1 0RF Rx Instructions: As directed with a seat calcitonin (salmon) 200 unit/actuation [place],Non-Aerosol 1 spray NA DAILY Qty: 10 0RF cholecalciferol (vitamin D3) 1,250 mcg (50,000 unit) capsule 50,000 unit PO WK Discontinued Excedrin Extra Strength 250-250-65 mg Tablet 1 tab PO UD Hold Instructions: Home Medication placed on hold at Doctor's office Rx Instructions: PER PT "TAKE 1 TAB DAILY AND UP TO 3 DOSES DAILY IF NEEDED". naproxen sodium [Aleve] 220 mg Tablet 220 - 440 mg PO BID PRN (Reason: Pain) Discharge Orders: Discharge Order (Routine); Ordered 09/11/24 Ordered By: Karen Contreras Admission Data Admit Date/Time: 09/09/24 16:08 Attending Provider: Karen Contreras Admit Provider: Karen Contreras Primary Care Provider: Bill Stanton Other Providers: Karen Contreras; Ja Boss Other Interventions: Discharge Summary Assessment (RN) Last Done: 09/11/24 12:32 Hospital Stay Data Consultations 09/09/24 15:22 ED Decision to Admit Stat 09/09/24 16:23 Consult Gastroenterology Routine Procedures Performed Operation Date: 09/11/24 16:45 Actual Procedures p Esophagogastroduodenoscopy - Ja Boss MD Diagnostic Imagining Performed 09/09/24 12:37 CT abd pelvis wo con Stat CT cervical spine wo con Stat CT chest diagnostic wo con Stat CT head/brain wo con Stat Discharge Instructions Given to Patient (Per Discharging Provider) You were admitted after having a fall and found to have severe anemia. This is coming from bleeding in your esophagus from irritation and an ulcer likely from taking Excedrin and naproxen. Please do not take any more Excedrin, aspirin, naproxen, or any other NSAIDs (nonsteroidal anti-inflammatory drugs such as ibuprofen, Motrin, Aleve). You should take Protonix twice a day for the next 2 to 3 months and have a repeat EGD along with a colonoscopy to see if this is healed. Please continue daily wound care dressing changes to the wound on your arm with Xeroform or Vaseline soaked dressing, cover with gauze and secure with Kerlix wrap. Please continue on the antibiotics to prevent skin infection for 5 more days. Is very important that you follow-up with your primary care provider within 1 to 2 weeks. It is recommended that you go to rehab by physical and Occupational Therapy, but you have decided to return home. A prescription was faxed for you to get a new wheeled walker. Total Time Total Time Spent Total Time Spent (In Minutes): 45 minutes Total Time Includes: Examination of the Patient, Discharge Planning, Medication Reconciliation and Communication With Other Providers Coding Level of Care Code 79132 INP/OBS DISCH >30 MIN Diagnoses Upper GI bleed K92.2 Iron deficiency anemia D50.9 Recurrent falls R29.6 Skin tear of left forearm without complication S51.415D Encounter type: initial encounter
[2024-09-11] MEDS ORDERED: PARoxetine HCL 20 MG TAB PO SCH (21:00)
== END 2024-09-11 17:10 | disposition home or self-care (01) | DRG 381 ==
LOC: SUATTDRO → ED 12:06 → 2W 16:08

== ENCOUNTER 2024-11-04 13:32 | Observation (INO) ==
[2024-11-04 15:16] LABS: Hematocrit (blood only) 29.5 % (37.0-47.0); Hemoglobin 9.1 g/dl (12.0-16.0); Immature Granulocytes # (auto) 0.02 K/uL (0.01-0.20); Immature Granulocytes % (auto) 0.3 %; Mean Corpuscular Hemoglobin 25.3 pg (25.0-34.0); Mean Corpuscular Volume 81.9 fL (80.0-100.0); Platelet Count 266 K/uL (130-400); RDW Standard Deviation 56.8 fL (36.4-46.3); Red Blood Count 3.60 M/uL (4.20-5.40); White Blood Count 6.82 K/ul (4.8-10.8)
[2024-11-04 15:18] LABS: Alanine Aminotransferase 18 U/L (7-52); Albumin Globulin Ratio 1.3 (0.9-2); Alkaline Phosphatase 66 U/L (34-104); Anion Gap 5 (3-11); Bilirubin,Total 0.3 mg/dl (0.2-1.0); Blood Urea Nitrogen 26 mg/dl (6-23); Calcium 8.6 mg/dl (8.6-10.3); Carbon Dioxide 27 mmol/L (21-32); Chloride 108 mmol/L (98-107); Globulin 2.6 gm/dl (2.5-4.0); Glucose 89 mg/dl (70-99(Fasting)); Potassium 3.3 mmol/L (3.5-5.1); Sodium 140 mmol/L (136-145); Total Protein 6.0 gm/dl (6.0-8.3)
--- NOTE | 2024-11-04 17:25 | Emergency Department Note ---
Impression & Plan Recurrent falls, Ambulatory dysfunction, Acute hypokalemia, Cat bite of left hand ED Provider Note HISTORY OF PRESENT ILLNESS: Patient is a 74-year-old female presenting with recurrent falls. Patient reports she was referred by her doctor because she keeps falling. She states she has multiple falls a day. She supposed to be ambulatory with a walker at home but states "was just easier to get around without the walker." She states that she has had recurrent head strikes with her falls but denies loss of consciousness. She is not on any anticoagulation or antiplatelet therapy. She reports that she is also having continued swelling and pain in her left hand. Reports that a few weeks ago she had a cat bite and has been on "4 different antibiotics but my hand still hurts." She denies any recent fevers. Denies any chest pain, shortness of breath, abdominal pain, nausea or vomiting. Denies any dysuria or hematuria. ROS: as above PHYSICAL EXAM: Constitutional: Patient appears in no acute distress. Frail-appearing HENT: Head: Normocephalic and atraumatic. Eyes: EOMI, PERRL Mouth/Throat: Mucous membranes moist. Neck: Trachea midline. Neck supple. Cardiovascular: RRR, No murmurs, rubs or gallops. Intact distal pulses. Pulmonary/Chest: No respiratory distress. Breath sounds clear and equal bilaterally. No wheezes or rales Abdominal: Abdomen soft, no tenderness, rebound or guarding. Back: No midline spinal tenderness, no paraspinal tenderness, no CVA tenderness. Musculoskeletal: No edema, tenderness or deformity noted. Skin: Warm and dry. Patient has a scabbed over laceration to the dorsal hand with surrounding erythema and swelling to the hand. Psychiatric: Appropriate mood and affect for situation. Neurological: Alert and keenly responsive. CN II-XII grossly intact, moving all extremities equally and fully. MDM: - Vitals signs showed hypertension - History obtained via patient. History as above. - Chronic conditions affecting care: HTN; anemia; weakness - Differential diagnoses include, but are not limited to: UTI; pneumonia; viral syndrome; CVA; intracranial hemorrhage; electrolyte abnormality; deconditioning - Order placed for continuous cardiac monitoring. At this time, monitor showed rate of 78 bpm with normal sinus rhythm, per my interpretation. - External medical records reviewed. Primary care visit note dated 11/04/2024 was reviewed. Patient was seen in clinic for her recurrent falls. They had sent her to the emergency department due to falling at least 2 times in the last 24 hours. - EKG image interpreted by myself showed normal sinus rhythm. Rate 74 bpm. QT 396. No acute ischemic changes. - Laboratory workup interpreted by myself showed normal WBC; chronic anemia (Hgb 9.1); hypokalemia (K 3.3); normal creatinine; normal troponin - CXR image reviewed by myself is negative for pneumonia, per my interpretation. - Xray pelvis negative for fracture. - CT head wo contrast negative for acute pathology - CT cervical spine wo contrast negative for acute pathology - Patient's case advocate in the outpatient setting had called and expressed concern about the patient's recurrent falls and ability to care for herself at home. Patient is agreeable to admission for PT/OT assessment and potential placement at rehab. Will discuss case with hospital service. - Discussion was had with case advocate about patient's case and need for admission - Hospitalist, Dr. Morris, consulted for admission - Patient admitted to [facility] service for further evaluation and management. ASSESSMENT AND PLAN: Diagnosis: Recurrent falls; ambulatory dysfunction; acute hypokalemia; cat bite of left hand Plan: admit Past Med/Surg History Problem List (Updated 11/05/24 @ 00:53 by Petra Vasquez MD) Cat bite of left hand (Acute) Acute hypokalemia (Acute) Ambulatory dysfunction (Acute) Recurrent falls (Acute) Generalized weakness (Acute) Falls frequently (Acute) Anemia (Acute) Cellulitis of left hand (Acute) Compression fracture of T4 vertebra (Acute ~09/09/24) Fracture of L3 vertebra Fracture of L2 vertebra Fecal occult blood test positive (Acute) Fracture of transverse process of lumbar vertebra (Acute) Multiple rib fractures (Acute) Cellulitis of left hand (Acute) Skin tear of left forearm without complication (Acute) Compression fracture of T4 vertebra (Acute) Fall (Acute) Vitamin B12 deficiency Vitamin D deficiency Neurogenic claudication due to lumbar spinal stenosis Unwitnessed fall (Acute) Weakness Compression fracture of T4 vertebra (Acute 03/03/24) Compression fracture of the superior endplate of T4 40% loss of vertebral body height. The patient has recurrent falls per the ED report. Syncope Left leg cellulitis Anemia Recurrent falls (Acute) Orbital floor (blow-out) closed fracture Fracture of nasal bone with routine healing Back problem Arthritis Left elbow pain Scoliosis of thoracolumbar region due to degenerative disease of spine in adult Degenerative spondylolisthesis Lumbar spinal stenosis Neck Pain Lower extremity edema (Acute) Anxiety and depression Back pain Medical History (Updated 11/05/24 @ 00:53 by Petra Vasquez MD) Cat bite of left hand Encounter for pre-operative examination Recurrent falls Iron deficiency anemia Upper GI bleed Compression fracture of T4 vertebra (~03/03/24) Compression fracture of the superior endplate of T4 40% loss of vertebral body height. Hypertension Kidney infection Bronchitis Surgical History H/O wrist surgery 2021 History of surgery on left wrist History of tubal ligation 1978 History of section 1982 History of tonsillectomy and adenoidectomy 1955 Family History Uncle Lung cancer Aunt Breast cancer Other COPD (chronic obstructive pulmonary disease) Denies family history of Ovarian cancer Prostate cancer Diabetes Myocardial infarction Colorectal cancer Stroke Social History (Updated 11/04/24 @ 11:51 by Tahmina Lopez) Smoking Status: Light tobacco smoker Tobacco Type: Cigarettes Age Started Using Tobacco: 16; packs per day: 0.50; Cigarettes Per Day: 2; Second Hand Exposure: No; Do You Dip or Chew Tobacco: No; Tobacco Cessation Education Requested by Patient: No Hx Alcohol Use: Yes Alcohol type: wine Alcohol Intake Frequency: 2-3 x/Week Hx Substance Use: No Preferred Language: Welsh Communication Ability: Effective Visual Impairment: No Limitations Hearing Ability: Normal Fruit Buying Grader Required: No Beliefs That Will Affect Care: None marital status: / Current Living Situation: Alone Current Living Situation Comment: Assisted Living current occupational status: retired Other Information That Helps Us Care for You: No Feels Safe at Home: No Is there a partner from a previous relationship who is making you feel unsafe now?: No Any Concerns about Your Family Situation: No Would You Like to Speak to Someone About Your Situation: No (the door is too heavy to hold open and patient is afraid of getting hit) Safety Concerns Comment: does not feel safe at her building due safety risks/fell on the ice Childhood Exposure to Second-Hand Smoke: No Diet: low salt and regular caffeine: No Dental Care, Regularly: No Physical Activity Frequency: Does not Exercise Seatbelt Use: always Sunscreen Use: No Assistive Devices: Walker Allergies Allergies Allergy/AdvReac Type Severity Reaction Status Date / Time Sulfa (Sulfonamide Allergy Intermediate BUMPS ON Verified 11/04/24 11:46 Antibiotics) TONGUE hydrocodone AdvReac Intermediate Vomiting Verified 11/04/24 11:46 Home Meds Home Medications Medication Instructions Recorded Confirmed multivitamin (Multiple Vitamins 1 tab PO DAILY 04/01/22 11/04/24 tablet) cholecalciferol (vitamin D3) 1,250 50,000 unit PO WK 09/09/24 11/04/24 mcg (50,000 unit) capsule calcium carbonate (Tums Extra 600 mg PO BID PRN Heartburn 11/04/24 11/04/24 Strength Smoothies) Previous Rx's Medication Instructions Recorded compr.stocking,knee,long,small #12 ea 04/01/22 Wheeled Walker #1 ea 03/11/24 ferrous sulfate 325 mg (65 mg 325 mg PO Q OTHER DAY #30 tabs 06/27/24 iron) tablet pantoprazole 40 mg tablet,delayed 40 mg PO BID #60 tabs 09/11/24 release (Protonix) Results & Data (ED) Vital Signs Vital Signs - 24 hr 11/04/24 13:47 11/04/24 16:57 11/04/24 17:00 Temperature 36.7 C Temperature Source Temporal Artery Scan Pulse Rate 89 Pulse Rate [Finger] 82 Pulse Rhythm [Finger] Pulse Strength [Finger] Respiratory Rate 16 16 Respiratory Effort / Characteristics Non-Labored Spontaneous Respiratory Depth Normal Respiratory Pattern Blood Pressure 154/73 H Blood Pressure [Right Arm] 152/106 H 166/93 H Blood Pressure Mean 100 Blood Pressure Mean [Right Arm] 121 117 Blood Pressure Position [Right Arm] Pulse Oximetry 95 97 Oxygen Delivery Method Room Air Room Air Sepsis Recent Fever Within 48 Hours No Sepsis New/Unexplained Change in Mental Status No Sepsis Action Taken by Nursing No Action Required 11/04/24 17:56 11/04/24 18:03 11/04/24 19:39 Temperature Temperature Source Pulse Rate 77 Pulse Rate [Finger] 80 81 Pulse Rhythm [Finger] Regular Pulse Strength [Finger] Normal Respiratory Rate 18 22 Respiratory Effort / Characteristics Non-Labored Spontaneous Respiratory Depth Normal Respiratory Pattern Regular Blood Pressure Blood Pressure [Right Arm] 152/92 H 131/79 Blood Pressure Mean Blood Pressure Mean [Right Arm] 112 96 Blood Pressure Position [Right Arm] Lying Pulse Oximetry 96 96 Oxygen Delivery Method Room Air Room Air Sepsis Recent Fever Within 48 Hours Sepsis New/Unexplained Change in Mental Status Sepsis Action Taken by Nursing 11/04/24 20:00 Temperature Temperature Source Pulse Rate 82 Pulse Rate [Finger] Pulse Rhythm [Finger] Pulse Strength [Finger] Respiratory Rate 24 Respiratory Effort / Characteristics Respiratory Depth Respiratory Pattern Blood Pressure 142/100 H Blood Pressure [Right Arm] Blood Pressure Mean 114 Blood Pressure Mean [Right Arm] Blood Pressure Position [Right Arm] Pulse Oximetry Oxygen Delivery Method Sepsis Recent Fever Within 48 Hours Sepsis New/Unexplained Change in Mental Status Sepsis Action Taken by Nursing Laboratory Data 11/04/24 14:45 11/04/24 14:45 Lab Results 11/04/24 11/04/24 Range/Units 14:45 19:54 WBC 6.82 (4.8-10.8) K/ul RBC 3.60 L (4.20-5.40) M/uL Hgb 9.1 L (12.0-16.0) g/dl Hct 29.5 L (37.0-47.0) % MCV 81.9 (80.0-100.0) fL MCH 25.3 (25.0-34.0) pg MCHC 30.8 L (32.0-36.0) g/dL RDW Std Deviation 56.8 H (36.4-46.3) fL RDW Coeff of [place] 19.0 H (11.5-14.5) % Plt Count 266 (130-400) K/uL MPV 9.8 (9.4-12.4) fL Immature Gran % (Auto) 0.3 % Neut % (Auto) 75.1 % Lymph % (Auto) 15.7 % [place] % (Auto) 6.6 % Eos % (Auto) 1.9 % Baso % (Auto) 0.4 % Neut # (Auto) 5.12 (1.40-6.50) K/uL Lymph # (Auto) 1.07 L (1.20-3.40) K/uL [place] # (Auto) 0.45 (0.11-0.59) K/uL Eos # (Auto) 0.13 (0.00-0.50) K/uL Baso # (Auto) 0.03 (0.00-0.20) K/uL Immature Gran # (Auto) 0.02 (0.01-0.20) K/uL Sodium 140 (136-145) mmol/L Potassium 3.3 L (3.5-5.1) mmol/L Chloride 108 H (98-107) mmol/L Carbon Dioxide 27 (21-32) mmol/L Anion Gap 5 (3-11) BUN 26 H (6-23) mg/dl Creatinine 0.60 (0.6-1.2) mg/dl Est Cr Clr Drug Dosing Not Reportable eGFR 92.97 BUN/Creatinine Ratio 43.3 H (10-20) Glucose 89 (70-99(Fasting)) mg/dl Calcium 8.6 (8.6-10.3) mg/dl Magnesium 1.9 (1.7-2.4) mg/dl Total Bilirubin 0.3 (0.2-1.0) mg/dl AST 21 (13-39) U/L ALT 18 (7-52) U/L Alkaline Phosphatase 66 (34-104) U/L Troponin I High Sens 9.7 (0-14) pg/ml Total Protein 6.0 (6.0-8.3) gm/dl Albumin 3.4 (3.4-5.0) gm/dl Globulin 2.6 (2.5-4.0) gm/dl Albumin/Globulin Ratio 1.3 (0.9-2) Urine Color Yellow Urine Appearance Cloudy A (Clear) Urine pH 7.5 (4.5-7.5) Ur Specific Brent 1.014 (1.000-1.030) Urine Protein Negative (Negative) Urine Glucose (UA) Negative (Negative) Urine Ketones Negative (Negative) Urine Blood Negative (Negative) Urine Nitrite Negative (Negative) Urine Bilirubin Negative (Negative) Urine Urobilinogen Negative (Negative) Ur Leukocyte Esterase Negative (Negative) Urine WBC (Auto) 0-5 (0-5) /hpf Urine RBC (Auto) 0-2 (0-2) /hpf U Hyaline Cast (Auto) 0-2 (0-2) /lpf U Epithel Cells (Auto) 0-2 (0-2) /hpf Urine Bacteria (Auto) None Seen (None Seen) Urine Comment Administered Medications Potassium Chloride/Sodium Chloride (Normal Saline W/20 Meq Kcl) 20 meq in 1,000 mls @ 60 mls/hr IV .[id number] NEHEMIAS Stop: 11/05/24 12:54 Last Admin: 11/04/24 22:00 Dose: 60 mls/hr Documented By: VIC Pantoprazole Sodium (Pantoprazole 40 Mg Tab) 40 mg PO BID NEHEMIAS Stop: 12/04/24 21:39 Last Admin: 11/04/24 22:04 Dose: 40 mg Documented By: VIC Imaging Data Radiologist's Impression: Cervical Spine CT 11/04/24 17:23 Clinical history: Recurrent falls Technique: Axial computed tomography images were obtained of the cervical spine without intravenous contrast. Sagittal and coronal reconstructions were obtained Comparison is made to the prior CT dated 09/09/2024 Findings: No definite cervical spine fracture is identified. There is unchanged mild anterior wedging of the T1 vertebral body. There is unchanged 2 mm of anterolisthesis of C2 on C3. No focal osseous lesion is evident. 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 There is mild left neural foramen narrowing At C3-4, there is mild spinal stenosis due to a disc bulge and a central disc protrusion. There is right greater than left neural foramen narrowing that may affect the right C4 nerve root At C4-5, there is spinal stenosis due to a disc bulge. There is bilateral neural foramen narrowing that may affect the exiting C5 nerve roots At C5-6, there is mild spinal stenosis due to a disc bulge. There is bilateral neural foramen narrowing that may affect the exiting C6 nerve roots At C6-7, there is mild spinal stenosis due to a disc bulge. There is left neural foramen narrowing that may affect the left C7 nerve root At C7-T1, there is a mild disc bulge. There is no spinal stenosis. The neural foramen are patent There are apparent small thyroid nodules Impression: 1. No definite cervical spine fracture 2. Unchanged mild anterolisthesis at C2-3 3. Spinal stenosis from C3-4 through C6-7 4. Right C3-4, bilateral C4-5 and C5-6, and left C6-7 neural foramen narrowing. This may affect the exiting nerve roots ACT 112: Positive. There are findings on this exam that require communication between the performing entity and the patient following Patient Test Result Information Act ([place] ACT 112) guidelines. Electronically signed by Kirt Winter 11-04-2024 6:51 PM Chest X-Ray 11/04/24 17:23 EXAM: Portable AP chest radiograph TECHNIQUE: AP portable radiograph of the chest was obtained. INDICATION: Shortness of breath Comparison: Chest radiograph September 26, 2024 FINDINGS: LINES and TUBES: None CARDIOVASCULAR: Cardiac silhouette is stably mildly enlarged in size. Atherosclerosis of the thoracic aorta. LUNGS/PLEURA: No focal consolidation identified. No significant pleural fluid. No discernible pneumothorax. OSSEOUS/OTHER: No displaced acute osseous process identified. IMPRESSION: Unchanged cardiomegaly. No radiographic evidence of acute cardiopulmonary process. Electronically signed by Percy Leonardo 11-04-2024 7:[address] 11/04/24 17:23 Clinical History: Recurrent falls Technique: Axial computed tomography images were obtained of the brain without intravenous contrast. Comparison is made to the prior CT dated 10/03/2024 Findings: There is unchanged cerebral atrophy, within expected limits for the patient's age. Areas of decreased attenuation are seen within the periventricular white matter, likely representing chronic small vessel ischemic disease. There is no definite sign of acute or old infarction. No intracranial hemorrhage is evident. There is an unchanged 1.7 x 0.8 cm calcified lesion adjacent to the left frontal lobe, likely a meningioma. There is no midline shift or other form of herniation. No hydrocephalus is seen. No fracture is identified. There is a small amount of fluid in the left maxillary sinus. There is mucosal thickening in both maxillary sinuses. The mastoid air cells appear clear. Impression: 1. Cerebral atrophy and chronic small vessel ischemic disease 2. Unchanged suspected left frontal meningioma 3. Mild sinusitis ACT 112: Positive. There are findings on this exam that require communication between the performing entity and the patient following Patient Test Result Information Act ([place] ACT 112) guidelines. Electronically signed by Kirt Winter 11-04-2024 6:47 PM Pelvis X-Ray 11/04/24 17:23 INDICATION: Trauma TECHNIQUE: Frontal pelvic radiograph was obtained. COMPARISON: None FINDINGS: No displaced acute osseous process is identified. IMPRESSION: No displaced acute osseous process is identified. Electronically signed by Percy Leonardo 11-04-2024 7:21 PM Discharge Plan Visit Data Chief Complaint: Referred by Doctor Stated Complaint: DOC REF ED Provider: Petra Vasquez Discharge Problem: Recurrent falls, Ambulatory dysfunction, Acute hypokalemia, Cat bite of left hand Patient Disposition: Admitted As Inpatient Condition: Fair Discharge Instructions Interventions: ED Discharge Assessment Last Done: 11/04/24 21:16
--- NOTE | 2024-11-04 18:47 | CT Scan Report ---
Clinical History: Recurrent falls Technique: Axial computed tomography images were obtained of the brain without intravenous contrast. Comparison is made to the prior CT dated 10/03/2024 Findings: There is unchanged cerebral atrophy, within expected limits for the patient's age. Areas of decreased attenuation are seen within the periventricular white matter, likely representing chronic small vessel ischemic disease. There is no definite sign of acute or old infarction. No intracranial hemorrhage is evident. There is an unchanged 1.7 x 0.8 cm calcified lesion adjacent to the left frontal lobe, likely a meningioma. There is no midline shift or other form of herniation. No hydrocephalus is seen. No fracture is identified. There is a small amount of fluid in the left maxillary sinus. There is mucosal thickening in both maxillary sinuses. The mastoid air cells appear clear. Impression: 1. Cerebral atrophy and chronic small vessel ischemic disease 2. Unchanged suspected left frontal meningioma 3. Mild sinusitis ACT 112: Positive. There are findings on this exam that require communication between the performing entity and the patient following Patient Test Result Information Act ([place] ACT 112) guidelines. Electronically signed by Kirt Winter 11-04-2024 6:47 PM
--- NOTE | 2024-11-04 18:51 | CT Scan Report ---
Clinical history: Recurrent falls Technique: Axial computed tomography images were obtained of the cervical spine without intravenous contrast. Sagittal and coronal reconstructions were obtained Comparison is made to the prior CT dated 09/09/2024 Findings: No definite cervical spine fracture is identified. There is unchanged mild anterior wedging of the T1 vertebral body. There is unchanged 2 mm of anterolisthesis of C2 on C3. No focal osseous lesion is evident. 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 There is mild left neural foramen narrowing At C3-4, there is mild spinal stenosis due to a disc bulge and a central disc protrusion. There is right greater than left neural foramen narrowing that may affect the right C4 nerve root At C4-5, there is spinal stenosis due to a disc bulge. There is bilateral neural foramen narrowing that may affect the exiting C5 nerve roots At C5-6, there is mild spinal stenosis due to a disc bulge. There is bilateral neural foramen narrowing that may affect the exiting C6 nerve roots At C6-7, there is mild spinal stenosis due to a disc bulge. There is left neural foramen narrowing that may affect the left C7 nerve root At C7-T1, there is a mild disc bulge. There is no spinal stenosis. The neural foramen are patent There are apparent small thyroid nodules Impression: 1. No definite cervical spine fracture 2. Unchanged mild anterolisthesis at C2-3 3. Spinal stenosis from C3-4 through C6-7 4. Right C3-4, bilateral C4-5 and C5-6, and left C6-7 neural foramen narrowing. This may affect the exiting nerve roots ACT 112: Positive. There are findings on this exam that require communication between the performing entity and the patient following Patient Test Result Information Act ([place] ACT 112) guidelines. Electronically signed by Kirt Winter 11-04-2024 6:51 PM
--- NOTE | 2024-11-04 19:23 | XRay Report ---
EXAM: Portable AP chest radiograph TECHNIQUE: AP portable radiograph of the chest was obtained. INDICATION: Shortness of breath Comparison: Chest radiograph September 26, 2024 FINDINGS: LINES and TUBES: None CARDIOVASCULAR: Cardiac silhouette is stably mildly enlarged in size. Atherosclerosis of the thoracic aorta. LUNGS/PLEURA: No focal consolidation identified. No significant pleural fluid. No discernible pneumothorax. OSSEOUS/OTHER: No displaced acute osseous process identified. IMPRESSION: Unchanged cardiomegaly. No radiographic evidence of acute cardiopulmonary process. Electronically signed by Percy Leonardo 11-04-2024 7:21 PM
--- NOTE | 2024-11-04 19:23 | XRay Report ---
INDICATION: Trauma TECHNIQUE: Frontal pelvic radiograph was obtained. COMPARISON: None FINDINGS: No displaced acute osseous process is identified. IMPRESSION: No displaced acute osseous process is identified. Electronically signed by Percy Leonardo 11-04-2024 7:21 PM
[2024-11-04 20:12] LABS: Appearance Urine Cloudy (Clear); Bacteria Urine Automated None Seen (None Seen); Cast Urine Automated 0-2 /lpf (0-2); Epithelial Cell Urine Auto 0-2 /hpf (0-2); Glucose Urine UA Negative (Negative); RBC Urine Automated 0-2 /hpf (0-2); WBC Urine Automated 0-5 /hpf (0-5)
[2024-11-04 20:32] LABS: Magnesium 1.9 mg/dl (1.7-2.4)
--- NOTE | 2024-11-04 20:35 | History & Physical Report ---
Date of Service November 04, 2024 Assessment & Plan (1) Recurrent falls: (2) Ambulatory dysfunction: (3) Acute hypokalemia: (4) Generalized weakness: (5) Cat bite of left hand: Plan The patient is a 74-year-old female with a past med history including ambulatory dysfunction, recurrent falls, generalized weakness, history of cellulitis of left hand, multiple vertebral fractures, vitamin B12 deficiency, vitamin D deficiency, neurogenic claudication, lumbar spinal stenosis, anxiety and depression. She has been having increasing frequency of falls, however did not have a new fall precipitating this ED visit. She reports that she is not allowed to take any NSAIDs, and has not been taking Tylenol. At this point she takes nothing for pain. Recurrent falls/ambulatory dysfunction/generalized weakness/history of multiple rib and vertebral fractures- Patient has difficulty taking care of herself at home She has been to rehab in the past, and would likely benefit from inpatient rehab again Acetaminophen 650 mg by mouth every 6 hours as needed for mild pain or fever Patient does use a wheeled walker at home Consult PT/OT #Hypokalemia/mild dehydration- Potassium 3.3 on admission Check a magnesium level, and replete as needed NSS + KCl 20 mEq at 60 mL/h x 1 L #Cat bite of left hand- Not infected at this time Has reportedly been on 4 different antibiotics Consult wound care #GERD- Continue pantoprazole 40 mg p.o. twice daily CODE STATUS: DNR/DNI History of Present Illness Chief Complaint: The patient presents to the emergency department with complaint of generalized arthritic pain, and decreased ability to take care of herself at home. She reports that she has a left hand wound caused by a cat bite, and has been on 4 different antibiotics, and reports that it has been slowly healing. Primary Care Provider: Bill Stanton DO The patient is a 74-year-old female with a past med history including ambulatory dysfunction, recurrent falls, generalized weakness, history of cellulitis of left hand, multiple vertebral fractures, vitamin B12 deficiency, vitamin D deficiency, neurogenic claudication, lumbar spinal stenosis, anxiety and depression. She has been having increasing frequency of falls, however did not have a new fall precipitating this ED visit. She reports that she is not allowed to take any NSAIDs, and has not been taking Tylenol. At this point she takes nothing for pain. Allergies Allergy/AdvReac Type Severity Reaction Status Date / Time Sulfa (Sulfonamide Allergy Intermediate BUMPS ON Verified 11/04/24 11:46 Antibiotics) TONGUE hydrocodone AdvReac Intermediate Vomiting Verified 11/04/24 11:46 Home Medications Medication Instructions Recorded Confirmed Type compr.stocking,knee,long,small #12 ea 04/01/22 10/18/24 Rx multivitamin (Multiple Vitamins 1 tab PO DAILY 04/01/22 11/04/24 History tablet) Wheeled Walker #1 ea 03/11/24 10/18/24 Rx ferrous sulfate 325 mg (65 mg 325 mg PO Q OTHER DAY #30 tabs 06/27/24 11/04/24 Rx iron) tablet cholecalciferol (vitamin D3) 1,250 50,000 unit PO WK 09/09/24 11/04/24 History mcg (50,000 unit) capsule pantoprazole 40 mg tablet,delayed 40 mg PO BID #60 tabs 09/11/24 11/04/24 Rx release (Protonix) calcium carbonate (Tums Extra 600 mg PO BID PRN Heartburn 11/04/24 11/04/24 History Strength Smoothies) Past Med/Surg History Problem List (Updated 11/04/24 @ 20:32 by Shawn Morris MD) Acute hypokalemia (Acute) Ambulatory dysfunction (Acute) Recurrent falls (Acute) Generalized weakness (Acute) Falls frequently (Acute) Anemia (Acute) Cellulitis of left hand (Acute) Compression fracture of T4 vertebra (Acute ~09/09/24) Fracture of L3 vertebra Fracture of L2 vertebra Fecal occult blood test positive (Acute) Fracture of transverse process of lumbar vertebra (Acute) Multiple rib fractures (Acute) Cellulitis of left hand (Acute) Skin tear of left forearm without complication (Acute) Compression fracture of T4 vertebra (Acute) Fall (Acute) Vitamin B12 deficiency Vitamin D deficiency Neurogenic claudication due to lumbar spinal stenosis Unwitnessed fall (Acute) Weakness Compression fracture of T4 vertebra (Acute 03/03/24) Compression fracture of the superior endplate of T4 40% loss of vertebral body height. The patient has recurrent falls per the ED report. Syncope Left leg cellulitis Anemia Recurrent falls (Acute) Orbital floor (blow-out) closed fracture Fracture of nasal bone with routine healing Back problem Arthritis Left elbow pain Scoliosis of thoracolumbar region due to degenerative disease of spine in adult Degenerative spondylolisthesis Lumbar spinal stenosis Neck Pain Lower extremity edema (Acute) Anxiety and depression Back pain Medical History (Updated 11/04/24 @ 20:32 by Shawn Morris MD) Cat bite of left hand Encounter for pre-operative examination Recurrent falls Iron deficiency anemia Upper GI bleed Compression fracture of T4 vertebra (~03/03/24) Compression fracture of the superior endplate of T4 40% loss of vertebral body height. Hypertension Kidney infection Bronchitis Surgical History H/O wrist surgery 2021 History of surgery on left wrist History of tubal ligation 1978 History of section 1982 History of tonsillectomy and adenoidectomy 1955 Family History Uncle Lung cancer Aunt Breast cancer Other COPD (chronic obstructive pulmonary disease) Denies family history of Ovarian cancer Prostate cancer Diabetes Myocardial infarction Colorectal cancer Stroke Social History (Updated 11/04/24 @ 11:51 by Tahmina Lopez) Smoking Status: Current some day smoker Tobacco Type: Cigarettes Age Started Using Tobacco: 16; packs per day: 0.50; Cigarettes Per Day: 2; Second Hand Exposure: Yes; Do You Dip or Chew Tobacco: No; Hx Alcohol Use: Yes Alcohol type: beer and hard liquor Alcohol Intake Frequency: 2-3 x/Week Hx Substance Use: No Preferred Language: Telugu Communication Ability: Effective Visual Impairment: No Limitations Hearing Ability: Normal Fish Header Required: No Beliefs That Will Affect Care: None marital status: / Current Living Situation: Alone and Personal Care Facility Current Living Situation Comment: [facility] current occupational status: retired Feels Safe at Home: Yes Safety Concerns Comment: does not feel safe at her building due safety risks/fell on the ice Childhood Exposure to Second-Hand Smoke: No Diet: low salt and regular caffeine: No Dental Care, Regularly: No Physical Activity Frequency: Does not Exercise Seatbelt Use: always Sunscreen Use: No Assistive Devices: Walker Review of Systems Review of Systems: The patient denies chest pain, palpitations, shortness of breath, dyspnea on exertion, cough, lower extremity swelling, sore throat, fevers, chills, sweats, weight change, fatigue, nausea, vomiting, diarrhea , constipation, abdominal pain, pelvic pain, blood in urine or stool, dysuria, urinary frequency or urgency, lightheadedness, dizziness, headache, memory loss, loss of consciousness, rash, abnormal bruising or bleeding, imbalance, focal or generalized weakness, numbness or tingling in arms or legs, generalized arthralgias or myalgias, back or neck pain, or night sweats. The review of systems is otherwise negative other than for that already noted above, and at least 10 systems have been reviewed. Physical Exam Physical Exam: The patient is awake, alert and oriented 3, well developed and well nourished, normocephalic and atraumatic, lying in bed and in no acute distress. HEENT--PERRL, EOMI, mucous membranes and oropharynx mildly dry. Neck--supple. No JVD. No bruits. Thyroid normal, trachea midline, no adenopathy. Heart--normal S1 and S2. No murmurs, rubs or gallops. Lungs--clear bilaterally, no respiratory distress, no accessory muscle use. Abdomen--normal bowel sounds and soft. Nontender. Nondistended. Extremities--no cyanosis or clubbing. Trace pretibial pitting edema bilaterally Dermatologic--left dorsum of hand with granulating wound, not infected. Neurologic--cranial nerves II through XII grossly intact. Rheumatologic--normal range of motion. Psychiatric--normal affect. Results & Data Results & Data Vital Signs (Past 12 Hours) Vital Signs Temp Pulse Pulse Resp BP BP Pulse Ox 11/04/24 19:39 81 22 131/79 96 11/04/24 18:03 80 18 152/92 H 96 11/04/24 17:56 77 11/04/24 17:00 166/93 H 11/04/24 16:57 82 16 152/106 H 97 11/04/24 13:47 36.7 C 89 16 154/73 H 95 O2 Del Method 11/04/24 19:39 Room Air 11/04/24 18:03 Room Air 11/04/24 17:56 11/04/24 17:00 11/04/24 16:57 Room Air 11/04/24 13:47 Room Air Laboratory Results Laboratory Results WBC 6.82 K/ul (4.8-10.8) 11/04/24 14:45 RBC 3.60 M/uL (4.20-5.40) L 11/04/24 14:45 Hgb 9.1 g/dl (12.0-16.0) L 11/04/24 14:45 Hct 29.5 % (37.0-47.0) L 11/04/24 14:45 MCV 81.9 fL (80.0-100.0) 11/04/24 14:45 MCH 25.3 pg (25.0-34.0) 11/04/24 14:45 MCHC 30.8 g/dL (32.0-36.0) L 11/04/24 14:45 RDW Std Deviation 56.8 fL (36.4-46.3) H 11/04/24 14:45 RDW Coeff of [place] 19.0 % (11.5-14.5) H 11/04/24 14:45 Plt Count 266 K/uL (130-400) 11/04/24 14:45 MPV 9.8 fL (9.4-12.4) 11/04/24 14:45 Immature Gran % (Auto) 0.3 % 11/04/24 14:45 Neut % (Auto) 75.1 % 11/04/24 14:45 Lymph % (Auto) 15.7 % 11/04/24 14:45 [place] % (Auto) 6.6 % 11/04/24 14:45 Eos % (Auto) 1.9 % 11/04/24 14:45 Baso % (Auto) 0.4 % 11/04/24 14:45 Neut # (Auto) 5.12 K/uL (1.40-6.50) 11/04/24 14:45 Lymph # (Auto) 1.07 K/uL (1.20-3.40) L 11/04/24 14:45 [place] # (Auto) 0.45 K/uL (0.11-0.59) 11/04/24 14:45 Eos # (Auto) 0.13 K/uL (0.00-0.50) 11/04/24 14:45 Baso # (Auto) 0.03 K/uL (0.00-0.20) 11/04/24 14:45 Immature Gran # (Auto) 0.02 K/uL (0.01-0.20) 11/04/24 14:45 Sodium 140 mmol/L (136-145) 11/04/24 14:45 Potassium 3.3 mmol/L (3.5-5.1) L 11/04/24 14:45 Chloride 108 mmol/L (98-107) H 11/04/24 14:45 Carbon Dioxide 27 mmol/L (21-32) 11/04/24 14:45 Anion Gap 5 (3-11) 11/04/24 14:45 BUN 26 mg/dl (6-23) H 11/04/24 14:45 Creatinine 0.60 mg/dl (0.6-1.2) 11/04/24 14:45 Est Cr Clr Drug Dosing Not Reportable 11/04/24 14:45 eGFR 92.97 11/04/24 14:45 BUN/Creatinine Ratio 43.3 (10-20) H 11/04/24 14:45 Glucose 89 mg/dl (70-99(Fasting)) 11/04/24 14:45 Calcium 8.6 mg/dl (8.6-10.3) 11/04/24 14:45 Total Bilirubin 0.3 mg/dl (0.2-1.0) 11/04/24 14:45 AST 21 U/L (13-39) 11/04/24 14:45 ALT 18 U/L (7-52) 11/04/24 14:45 Alkaline Phosphatase 66 U/L (34-104) 11/04/24 14:45 Troponin I High Sens 9.7 pg/ml (0-14) 11/04/24 14:45 Total Protein 6.0 gm/dl (6.0-8.3) 11/04/24 14:45 Albumin 3.4 gm/dl (3.4-5.0) 11/04/24 14:45 Globulin 2.6 gm/dl (2.5-4.0) 11/04/24 14:45 Albumin/Globulin Ratio 1.3 (0.9-2) 11/04/24 14:45 Urine Color Yellow 11/04/24 19:54 Urine Appearance Cloudy (Clear) A 11/04/24 19:54 Urine pH 7.5 (4.5-7.5) 11/04/24 19:54 Ur Specific [place] 1.014 (1.000-1.030) 11/04/24 19:54 Urine Protein Negative (Negative) 11/04/24 19:54 Urine Glucose (UA) Negative (Negative) 11/04/24 19:54 Urine Ketones Negative (Negative) 11/04/24 19:54 Urine Blood Negative (Negative) 11/04/24 19:54 Urine Nitrite Negative (Negative) 11/04/24 19:54 Urine Bilirubin Negative (Negative) 11/04/24 19:54 Urine Urobilinogen Negative (Negative) 11/04/24 19:54 Ur Leukocyte Esterase Negative (Negative) 11/04/24 19:54 Urine WBC (Auto) 0-5 /hpf (0-5) 11/04/24 19:54 Urine RBC (Auto) 0-2 /hpf (0-2) 11/04/24 19:54 U Hyaline Cast (Auto) 0-2 /lpf (0-2) 11/04/24 19:54 U Epithel Cells (Auto) 0-2 /hpf (0-2) 11/04/24 19:54 Urine Bacteria (Auto) None Seen (None Seen) 11/04/24 19:54 Urine Comment 11/04/24 19:[address] 11/04/24 17:23 Clinical history: Recurrent falls Technique: Axial computed tomography images were obtained of the cervical spine without intravenous contrast. Sagittal and coronal reconstructions were obtained Comparison is made to the prior CT dated 09/09/2024 Findings: No definite cervical spine fracture is identified. There is unchanged mild anterior wedging of the T1 vertebral body. There is unchanged 2 mm of anterolisthesis of C2 on C3. No focal osseous lesion is evident. 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 There is mild left neural foramen narrowing At C3-4, there is mild spinal stenosis due to a disc bulge and a central disc protrusion. There is right greater than left neural foramen narrowing that may affect the right C4 nerve root At C4-5, there is spinal stenosis due to a disc bulge. There is bilateral neural foramen narrowing that may affect the exiting C5 nerve roots At C5-6, there is mild spinal stenosis due to a disc bulge. There is bilateral neural foramen narrowing that may affect the exiting C6 nerve roots At C6-7, there is mild spinal stenosis due to a disc bulge. There is left neural foramen narrowing that may affect the left C7 nerve root At C7-T1, there is a mild disc bulge. There is no spinal stenosis. The neural foramen are patent There are apparent small thyroid nodules Impression: 1. No definite cervical spine fracture 2. Unchanged mild anterolisthesis at C2-3 3. Spinal stenosis from C3-4 through C6-7 4. Right C3-4, bilateral C4-5 and C5-6, and left C6-7 neural foramen narrowing. This may affect the exiting nerve roots ACT 112: Positive. There are findings on this exam that require communication between the performing entity and the patient following Patient Test Result Information Act ([place] ACT 112) guidelines. Electronically signed by Kirt Winter 11-04-2024 6:51 PM Chest X-Ray 11/04/24 17:23 EXAM: Portable AP chest radiograph TECHNIQUE: AP portable radiograph of the chest was obtained. INDICATION: Shortness of breath Comparison: Chest radiograph September 26, 2024 FINDINGS: LINES and TUBES: None CARDIOVASCULAR: Cardiac silhouette is stably mildly enlarged in size. Atherosclerosis of the thoracic aorta. LUNGS/PLEURA: No focal consolidation identified. No significant pleural fluid. No discernible pneumothorax. OSSEOUS/OTHER: No displaced acute osseous process identified. IMPRESSION: Unchanged cardiomegaly. No radiographic evidence of acute cardiopulmonary process. Electronically signed by Precy Leonardo 11-04-2024 7:[address] 11/04/24 17:23 Clinical History: Recurrent falls Technique: Axial computed tomography images were obtained of the brain without intravenous contrast. Comparison is made to the prior CT dated 10/03/2024 Findings: There is unchanged cerebral atrophy, within expected limits for the patient's age. Areas of decreased attenuation are seen within the periventricular white matter, likely representing chronic small vessel ischemic disease. There is no definite sign of acute or old infarction. No intracranial hemorrhage is evident. There is an unchanged 1.7 x 0.8 cm calcified lesion adjacent to the left frontal lobe, likely a meningioma. There is no midline shift or other form of herniation. No hydrocephalus is seen. No fracture is identified. There is a small amount of fluid in the left maxillary sinus. There is mucosal thickening in both maxillary sinuses. The mastoid air cells appear clear. Impression: 1. Cerebral atrophy and chronic small vessel ischemic disease 2. Unchanged suspected left frontal meningioma 3. Mild sinusitis ACT 112: Positive. There are findings on this exam that require communication between the performing entity and the patient following Patient Test Result Information Act ([place] ACT 112) guidelines. Electronically signed by Kirt Winter 11-04-2024 6:47 PM Pelvis X-Ray 11/04/24 17:23 INDICATION: Trauma TECHNIQUE: Frontal pelvic radiograph was obtained. COMPARISON: None FINDINGS: No displaced acute osseous process is identified. IMPRESSION: No displaced acute osseous process is identified. Electronically signed by Percy Leonardo 11-04-2024 7:21 PM Code Status & VTE Plan Code Status DNR/DNI VTE Prophylaxis Plan VTE Prophylaxis will be ordered: Yes PG Care Time/CCT Total # of Minutes Spent Total Time Spent with Patient: Total time spent is greater than 50% in coordination of care (as documented) at patient's floor/unit and/or counseling patient: Coding Level of Care Code 48791 INT INP/OBS CARE 3/75MIN Diagnoses Recurrent falls R29.6 Ambulatory dysfunction R26.2 Acute hypokalemia E87.6 Generalized weakness R53.1 Cat bite of left hand S61.452A; W55.01XA
[2024-11-04] MEDS ORDERED: ONDANSETRON INJ 2 MG/ML 2 ML VIAL IV PRN (21:40)
[2024-11-04] MEDS ORDERED: CALCIUM CARBONATE 500 MG CHEWABLE TAB PO PRN (21:41)
[2024-11-04] MEDS: NSS + 20MEQ KCL 20 MEQ/1,000 ML BAG IV SCH (22:00)
[2024-11-05 06:42] LABS: Hematocrit (blood only) 27.4 % (37.0-47.0); Hemoglobin 8.6 g/dl (12.0-16.0); Immature Granulocytes # (auto) 0.02 K/uL (0.01-0.20); Immature Granulocytes % (auto) 0.3 %; Mean Corpuscular Hemoglobin 25.4 pg (25.0-34.0); Mean Corpuscular Volume 81.1 fL (80.0-100.0); Platelet Count 238 K/uL (130-400); RDW Standard Deviation 55.3 fL (36.4-46.3); Red Blood Count 3.38 M/uL (4.20-5.40); White Blood Count 6.01 K/ul (4.8-10.8)
[2024-11-05 07:22] LABS: Anion Gap 6.0 (3-11); Blood Urea Nitrogen 25.0 mg/dl (6-23); Calcium 7.4 mg/dl (8.6-10.3); Carbon Dioxide 23.0 mmol/L (21-32); Chloride 112.0 mmol/L (98-107); Creatinine Clr Calc Pharmacy 59.5 ml/min; Glucose 79.0 mg/dl (70-99(Fasting)); Magnesium 1.9 mg/dl (1.7-2.4); Potassium 3.4 mmol/L (3.5-5.1); Sodium 141.0 mmol/L (136-145)
[2024-11-05] MEDS: FERROUS SULFATE 325 MG TAB PO SCH (07:51)
[2024-11-05] MEDS: MULTIVITAMIN TAB PO SCH (07:51)
--- NOTE | 2024-11-05 11:41 | Electrocardiogram Report ---
Test Reason : Blood Pressure : */* mmHG Vent. Rate : 74 BPM Atrial Rate : 74 BPM P-R Int : 114 ms QRS Dur : 74 ms QT Int : 396 ms P-R-T Axes : 62 2 137 degrees QTcB Int : 439 ms Normal sinus rhythm Abnormal ECG When compared with ECG of 26-Sep-2024 16:02, Criteria for Septal infarct are no longer Present Confirmed by Colin Forman ([id number]) on 11/05/2024 11:40:53 AM Referred By: Bill Stanton Confirmed By: Colin Forman
[2024-11-05] MEDS: ACETAMINOPHEN 325 MG TAB PO PRN (20:01)
--- NOTE | 2024-11-05 22:10 | Hospitalist Progress Note ---
Date of Service November 05, 2024 Assessment & Plan (1) Recurrent falls: (2) Ambulatory dysfunction: (3) Acute hypokalemia: (4) Generalized weakness: (5) Cat bite of left hand: Plan The patient is a 74-year-old female with a past med history including ambulatory dysfunction, recurrent falls, generalized weakness, history of cellulitis of left hand, multiple vertebral fractures, vitamin B12 deficiency, vitamin D deficiency, neurogenic claudication, lumbar spinal stenosis, anxiety and depression. She has been having increasing frequency of falls, however did not have a new fall precipitating this ED visit. She reports that she is not allowed to take any NSAIDs, and has not been taking Tylenol. At this point she takes nothing for pain. Recurrent falls/ambulatory dysfunction/generalized weakness/history of multiple rib and vertebral fractures- Patient has difficulty taking care of herself at home She has been to rehab in the past, and would likely benefit from inpatient rehab again Patient on acetaminophen but will be QID schedule. Patient does use a wheeled walker at home Consulted PT/OT, will likely need placement. #Hypokalemia/mild dehydration- Potassium 3.3 on admission Check a magnesium level, and replete as needed NSS + KCl 20 mEq at 60 mL/h x 1 L #Cat bite of left hand- Not infected at this time Has reportedly been on 4 different antibiotics Consult wound care #GERD- Continue pantoprazole 40 mg p.o. twice daily CODE STATUS: DNR/DNI Admission and Anticipated Discharge Date Admission Date: November 04, 2024 Subjective Patient reports no new symptoms. She has pain on her right side. Physical Exam Physical Exam: The patient is awake, alert and oriented 3 HEENT--PERRL, EOMI, mucous membranes and oropharynx mildly dry. Neck--supple. No JVD. No bruits. Thyroid normal, trachea midline, no adenopathy. Heart--normal S1 and S2. No murmurs, rubs or gallops. Lungs--clear bilaterally, no respiratory distress, no accessory muscle use. Abdomen--normal bowel sounds and soft. Nontender. Nondistended. Extremities--no cyanosis or clubbing. Trace pretibial pitting edema bilaterally Psychiatric--normal affect. Results & Data Results & Data Vital Signs (Past 12 Hours) Vital Signs Temp Pulse Resp BP BP Pulse Ox Pulse Ox 11/05/24 20:00 11/05/24 19:42 36.7 C 83 12 106/58 L 94 11/05/24 15:14 36.5 C 81 18 117/65 97 11/05/24 14:36 95 O2 Del Method O2 Flow Rate 11/05/24 20:00 Room Air, Nasal Cannula 11/05/24 19:42 Room Air 11/05/24 15:14 Room Air 11/05/24 14:36 0 PG Care Time/CCT Total # of Minutes Spent Total Time Spent with Patient: Total time spent is greater than 50% in coordination of care (as documented) at patient's floor/unit and/or counseling patient: Coding Level of Care Code 89563 SUB INP/OBS CARE 3/50MIN Diagnoses Recurrent falls R29.6 Ambulatory dysfunction R26.2 Acute hypokalemia E87.6 Generalized weakness R53.1 Cat bite of left hand S61.452A; W55.01XA
[2024-11-06 07:08] LABS: Hematocrit (blood only) 28.9 % (37.0-47.0); Hemoglobin 8.8 g/dl (12.0-16.0); Immature Granulocytes # (auto) 0.06 K/uL (0.01-0.20); Immature Granulocytes % (auto) 0.8 %; Mean Corpuscular Hemoglobin 25.3 pg (25.0-34.0); Mean Corpuscular Volume 83.0 fL (80.0-100.0); Platelet Count 249 K/uL (130-400); RDW Standard Deviation 58.8 fL (36.4-46.3); Red Blood Count 3.48 M/uL (4.20-5.40); White Blood Count 7.15 K/ul (4.8-10.8)
[2024-11-06 07:23] LABS: Anion Gap 4.0 (3-11); Blood Urea Nitrogen 17.0 mg/dl (6-23); Calcium 7.6 mg/dl (8.6-10.3); Carbon Dioxide 26.0 mmol/L (21-32); Chloride 112.0 mmol/L (98-107); Creatinine Clr Calc Pharmacy 50.4 ml/min; Glucose 104.0 mg/dl (70-99(Fasting)); Magnesium 1.9 mg/dl (1.7-2.4); Potassium 3.6 mmol/L (3.5-5.1); Sodium 142.0 mmol/L (136-145)
[2024-11-06] MEDS: LIDOCAINE 5% 1 PATCH TD SCH (07:48)
[2024-11-06] MEDS: ACETAMINOPHEN 325 MG TAB PO SCH (08:10)
[2024-11-06 13:20] LABS: Chlamydia pneumoniae PCR Not Detected (NotDetected); Coronavirus 229E PCR Not Detected (NotDetected); Coronavirus CoV-2 (COVID19)PCR Not Detected (NotDetected); Coronavirus HKU1 PCR Not Detected (NotDetected); Coronavirus NL63 PCR Not Detected (NotDetected); Coronavirus OC43PCR Not Detected (NotDetected); Human Metapneumovirus PCR Not Detected (NotDetected); Parainfluenza Virus 1 PCR Not Detected (NotDetected); Parainfluenza Virus 2 PCR Not Detected (NotDetected); Parainfluenza Virus 3 PCR Not Detected (NotDetected); Parainfluenza Virus 4 PCR Not Detected (NotDetected); Respiratory Syncytial VirusPCR Not Detected (NotDetected); Rhinovirus/Enterovirus PCR Not Detected (NotDetected)
[2024-11-06 15:00] VITALS: O2SAT 94
--- NOTE | 2024-11-06 15:29 | XRay Report ---
XR chest 2V PA/lateral CLINICAL HISTORY: hypoxia COMPARISON STUDY: 11/04/2024 FINDINGS: Compared with the prior study, patient has developed small bilateral pleural effusions and reticular lung markings have increased slightly as the possibility of mild CHF/pulmonary edema. Heart remains enlarged with left ventricular prominence. IMPRESSION: Query developing CHF. ACT 112: Negative or not required by law. Electronically signed by: Candace Crowder M.D. 11/06/2024 3:28 PM
[2024-11-06] MEDS: FUROSEMIDE 40 MG/4 ML VIAL IV ONE (18:34)
[2024-11-06] MEDS: REMOVE LIDODERM PATCH SCH (19:59)
--- NOTE | 2024-11-06 22:33 | Hospitalist Progress Note ---
Date of Service November 06, 2024 Assessment & Plan (1) Recurrent falls: (2) Ambulatory dysfunction: (3) Acute hypokalemia: (4) Generalized weakness: (5) Cat bite of left hand: Plan The patient is a 74-year-old female with a past med history including ambulatory dysfunction, recurrent falls, generalized weakness, history of cellulitis of left hand, multiple vertebral fractures, vitamin B12 deficiency, vitamin D deficiency, neurogenic claudication, lumbar spinal stenosis, anxiety and depression. She has been having increasing frequency of falls, however did not have a new fall precipitating this ED visit. She reports that she is not allowed to take any NSAIDs, and has not been taking Tylenol. At this point she takes nothing for pain. Recurrent falls/ambulatory dysfunction/generalized weakness/history of multiple rib and vertebral fractures- Age-related physical debility Patient has difficulty taking care of herself at home She has been to rehab in the past, and would likely benefit from inpatient rehab again Patient on acetaminophen but will be QID schedule. Patient does use a wheeled walker at home Consulted PT/OT, will likely need placement. #hypoxia at rest Requiring only 2 liters nasal cannula at rest. Patient did pass her 2 step but as per nursing has expiratory wheezing. Her x ray also appears to show evidence of earlier volume congestion. WIll order 2d echo and one dose of IV lasix #Hypokalemia/mild dehydration- Potassium 3.3 on admission replete as needed. #Cat bite of left hand- Not infected at this time Has reportedly been on 4 different antibiotics Consult wound care #GERD- Continue pantoprazole 40 mg p.o. twice daily CODE STATUS: DNR/DNI DIspoosition: once echo is completed will discharge home with home health, likely on oral diuretics 40 mg PO Q2D to start. Admission and Anticipated Discharge Date Admission Date: November 04, 2024 Subjective 74 yo female reports having SOB and requiring nasal cannula. Patient is refusing rehab. Physical Exam Physical Exam: The patient is awake, alert and oriented 3 HEENT--PERRL, EOMI, mucous membranes and oropharynx mildly dry. Neck--supple. No JVD. No bruits. Thyroid normal, trachea midline, no adenopathy. Heart--normal S1 and S2. No murmurs, rubs or gallops. Lungs--bibasilar rales. Abdomen--normal bowel sounds and soft. Nontender. Nondistended. Extremities--no cyanosis or clubbing. Trace pretibial pitting edema bilaterally Psychiatric--normal affect. Results & Data Results & Data Vital Signs (Past 12 Hours) Vital Signs Temp Pulse Pulse Pulse Resp Resp Resp 11/06/24 20:00 11/06/24 19:18 37.2 C 80 12 11/06/24 14:29 36.6 C 87 18 11/06/24 14:25 97 H 86 22 18 BP Pulse Ox Pulse Ox Pulse Ox O2 Del Method O2 Flow Rate 11/06/24 20:00 Room Air 11/06/24 19:18 130/67 94 Room Air 11/06/24 14:29 120/69 92 Nasal Cannula 2.0 11/06/24 14:25 92 94 PG Care Time/CCT Total # of Minutes Spent Total Time Spent with Patient: Total time spent is greater than 50% in coordination of care (as documented) at patient's floor/unit and/or counseling patient: Coding Level of Care Code 82642 SUB INP/OBS CARE 3/50MIN Diagnoses Recurrent falls R29.6 Ambulatory dysfunction R26.2 Acute hypokalemia E87.6 Generalized weakness R53.1 Cat bite of left hand S61.452A; W55.01XA
[2024-11-07] MEDS: COUGH DROP (SUGAR FREE) LOZ 24 LOZ/1 BOX BUCCAL ONE (05:52)
[2024-11-07 07:00] VITALS: BP 117/65; PULSE 69; RESP 18; TEMP 97.9
[2024-11-07 07:14] LABS: Hematocrit (blood only) 31.8 % (37.0-47.0); Hemoglobin 9.7 g/dl (12.0-16.0); Immature Granulocytes # (auto) 0.02 K/uL (0.01-0.20); Immature Granulocytes % (auto) 0.3 %; Mean Corpuscular Hemoglobin 25.4 pg (25.0-34.0); Mean Corpuscular Volume 83.2 fL (80.0-100.0); Platelet Count 276 K/uL (130-400); RDW Standard Deviation 58.9 fL (36.4-46.3); Red Blood Count 3.82 M/uL (4.20-5.40); White Blood Count 7.15 K/ul (4.8-10.8)
[2024-11-07 07:31] LABS: Anion Gap 4.0 (3-11); Blood Urea Nitrogen 17.0 mg/dl (6-23); Calcium 7.9 mg/dl (8.6-10.3); Carbon Dioxide 25.0 mmol/L (21-32); Chloride 111.0 mmol/L (98-107); Creatinine Clr Calc Pharmacy 55.8 ml/min; Glucose 80.0 mg/dl (70-99(Fasting)); Magnesium 2.0 mg/dl (1.7-2.4); Potassium 4.0 mmol/L (3.5-5.1); Sodium 140.0 mmol/L (136-145)
--- NOTE | 2024-11-07 13:06 | Discharge Summary ---
Discharge Summary Date of Service November 07, 2024 Principal Dx & Hospital Course #1 = Principal Diagnosis (1) Recurrent falls: (2) Ambulatory dysfunction: (3) Acute hypokalemia: (4) Generalized weakness: (5) Cat bite of left hand: Plan 74 years old female with PMH of DNR/DNI @ home, chronic diastolic CHF with preserved LVEF 60% (as noted on 10/20/2021 TTE, CARDS Mr. Arturo Leger), remote history of cat bite to hand, RESOLVED s/p treatment with 4 different oral antibiotics, GERD on protonix 40mg PO bid, and ambulatory dysfunction utilizing wheeled walker at home, who presented to [facility] ER on 11/04/2024 with complaints of increasing frequency of mechanical falls at home without loss of consciousness or loss of continence of stool/urine at home. Patient was subsequently admitted to the inpatient hospitalist service @ [facility] on 11/04/2024 with the following diagnoses: 1. Yvuuw-ro-brqhgfj ambulatory dysfunction, with increasing frequency of mechanical falls at home without loss of consciousness or loss of continence of stool/urine at home, most probably due to patient's home-scheduled protonix 40mg PO bid. 2. Acute hypokalemia with admission K 3.3 mmol/L (11/04/2024, 2:45pm). 1. Pfubx-zi-rjephyv ambulatory dysfunction, with increasing frequency of mechanical falls at home without loss of consciousness or loss of continence of stool/urine at home, most probably due to patient's home-scheduled protonix 40mg PO bid. Patient has difficulty taking care of herself at home She has been to rehab in the past, and would likely benefit from inpatient rehab again Patient on acetaminophen but will be QID schedule. Patient does use a wheeled walker at home Patient was evaluated by PT/OT Services and deemed safe for D/C back to her home with [facility] on 11/07/2024. Patient was subsequently discharged back to her home with [facility] on 11/07/2024 OFF her home-scheduled protonix 40mg PO bid. Patient had no symptoms to suggest GERD while in [facility]. Patient was advised to consider alternative medications such as famotidine 40mg PO daily or 40mg PO bid to treat GERD in the future, should GERD recur. 2. Acute hypokalemia with admission K 3.3 mmol/L (11/04/2024, 2:45pm). RESOLVED s/p supplementation with 1 liter of 0.9% NS with KCl 20meq/L @ 60 mL/hr (11/04/2024, 10:00pm). cf., K 3.3 mmol/L (11/04/2024, 2:45pm). cf., K 3.4 mmol/L (11/05/2024, 6:04am). cf., K 3.6 mmol/L (11/06/2024, 6:13am). cf., K 4.0 mmol/L (11/07/2024, 5:59am) [facility] with no need for potassium supplementation on 11/07/2024. Other secondary medical issues included: #hypoxia at rest Requiring only 2 liters nasal cannula at rest. Patient did pass her 2 step but as per nursing has expiratory wheezing. Her x ray also appears to show evidence of earlier volume congestion. RESOLVED with discharge O2 sat 94% on room air (11/07/2024, 7:54am). Etiology of transient hypoxia was probably due to hypoventilation. Observe. . #Cat bite of left hand- Not infected at this time Has reportedly been on 4 different antibiotics Consult wound care #GERD- Continue pantoprazole 40 mg p.o. twice daily CODE STATUS: DNR/DNI DIspoosition: once echo is completed will discharge home with home health, likely on oral diuretics 40 mg PO Q2D to start. Admission HPI Per Admitting Provider The patient is a 74-year-old female with a past med history including ambulatory dysfunction, recurrent falls, generalized weakness, history of cellulitis of left hand, multiple vertebral fractures, vitamin B12 deficiency, vitamin D deficiency, neurogenic claudication, lumbar spinal stenosis, anxiety and depression. She has been having increasing frequency of falls, however did not have a new fall precipitating this ED visit. She reports that she is not allowed to take any NSAIDs, and has not been taking Tylenol. At this point she takes nothing for pain. Discharge Exam Constitutional General: Comfortable, coherent, and cooperative. Not confused, obtunded, or lethargic. Patient speaks with regular damián, and in complete, fluent, and articulate 7-9 word sentences without pause, interruption, cough, or wheeze with O2 sat 94% on room air (11/07/2024, 7:54am). HEENT: Normocephalic, atraumatic. No nystagmus, gaze paresis, anisocoria, miosis, mydriasis, hyphema, scleral injection, conjunctivitis, or pterygium. No otorrhea or rhinorrhea. No pharyngeal erythema, edema, or discharge. Neck: Supple, no stridor, bruit, goiter, or hepato-jugular reflux. Jugular venous pressure is estimated to be 3 cm above the sternal angle of Reece, which in turn, is 5 cm above the level of the right atrium; with jugular venous pressure estimated to be 8 cm, then, there is no jugular venous distention on 11/07/2024. Lymphatics: No cervical (anterior/posterior), supraclavicular, infraclavicular, axillary, epitrochlear, or inguinal adenopathy. Chest: Symmetric rise and fall with respirations. Non-tender to palpation. Lungs: Clear to auscultation and percussion. Heart: Regular rate and rhythm. S1 and S2 noted. No S3 or S4 summation gallop. No tripartite friction rub. Grade II/ early systolic murmur @ LLSB without radiation to the carotids, axilla, or back, and which remains invariant in regards to the respiratory cycle. Abdomen: Soft, non-tender, non-distended. No rebound, guarding, Lloyd's sign, or organomegaly. Bowel sounds auscultated in all 4 quadrants. Extremities: No clubbing, cyanosis, or edema. Skin: No decubitus ulcer or enanthem or exanthem. Neuro: Awake and oriented in regards to person, place, time, and situation. DTR+. 5/5 motor strength in all 4 extremities, both proximally and distally. No myoclonus or tics or tremors. Genito-urinary: No urethral discharge. No stewart catheter. Discharge Plan Discharge Items Patient Disposition: Home - Home Health Services Reason For Visit: FREQUENT FALLS Discharge Diagnosis: 1. Pihpu-fj-yiavufn ambulatory dysfunction, with increasing frequency of mechanical falls at home without loss of consciousness or loss of continence of stool/urine at home, most probably due to patient's home-scheduled protonix 40mg PO bid. 2. Acute hypokalemia with admission K 3.3 mmol/L (11/04/2024, 2:45pm), RESOLVED. Condition on Discharge: Fair Activity: Resume your previous activity Lifting: Gradually increase as tolerated Bathing: No limitations Exercise/Sports: Gradually increase as tolerated Weightbearing: Full weightbearing Non-emergency contact: Primary Care Provider Call non-emergency contact if: you have any medication questions Follow-up/Referrals: Bill Stanton, [Primary Care Provider] - Diet: Heart Healthy Addtl Attending Provider Instructions: 1. See your PCP Dr. Bill Stanton within 5-7 days of hospital discharge. Pending Studies at Discharge: No Stand-Alone Forms: My [facility]as Medicine, Smoking Cessation Medications and DC Order Prescriptions: Continued ferrous sulfate 325 mg (65 mg iron) tablet 325 mg PO Q OTHER DAY Qty: 30 2RF multivitamin [Multiple Vitamins] Tablet 1 tab PO DAILY (DME) compr.stocking,knee,long,small Misc See Rx Instructions .Route Qty: 12 0RF Rx Instructions: As directed (DME) Wheeled Walker Misc See Rx Instructions .Route Qty: 1 0RF Rx Instructions: As directed with a seat cholecalciferol (vitamin D3) 1,250 mcg (50,000 unit) capsule 50,000 unit PO WK Rx Instructions: pt is out of refills Tums Extra Strength Smoothies 300 mg (750 mg) Tablet,Chewable 600 mg PO BID PRN (Reason: Heartburn) Discontinued pantoprazole [Protonix] 40 mg tablet,delayed release (DR/EC) 40 mg PO BID Qty: 60 2RF Discharge Orders: Discharge Order (Routine); Ordered 11/07/24 Ordered By: Sharad Banda Discharge Order- CHF (Routine); Ordered 11/07/24 Ordered By: Sharad Banda Admission Data Admit Date/Time: 11/04/24 20:25 Attending Provider: Sharad Banda Admit Provider: Shawn Morris Primary Care Provider: Bill Stanton Other Providers: Shawn Morris; [facility]; [facility]; [facility] Hospital Stay Data Consultations 11/04/24 19:25 ED Decision to Admit Stat Diagnostic Imagining Performed 11/04/24 17:23 CT cervical spine wo con Stat CT head/brain wo con Stat Pending Results Patient Have Any Pending Studies at Discharge: No Discharge Instructions Given to Patient (Per Discharging Provider) 1. See your PCP Dr. Bill Stanton within 5-7 days of hospital discharge. Total Time Total Time Spent Total Time Spent (In Minutes): 35 minutes. Of this time period, 19 minutes were spent in coordinating patient's discharge. Coding Level of Care Code 99016 INP/OBS DISCH >30 MIN Diagnoses Recurrent falls R29.6 Ambulatory dysfunction R26.2 Acute hypokalemia E87.6 Generalized weakness R53.1 Cat bite of left hand S61.452A; W55.01XA
--- NOTE | 2024-11-07 13:12 | XCELERA ---
[id number]
== END 2024-11-07 15:37 | disposition home health service (06) | DRG 884 ==
LOC: SUATTDRO → ED 13:32 → INTOOBSV 20:25 → 3W 20:25 → SUATTDRO 20:25 → 3W 21:16

== ENCOUNTER 2025-02-15 10:35 | Inpatient (IN) ==
--- NOTE | 2025-02-15 11:26 | Emergency Department Note ---
Impression & Plan Fall from standing, Anemia requiring transfusions, Facial hematoma ED Provider Note HISTORY OF PRESENT ILLNESS: Patient is a 74-year-old female presenting after a fall from standing. Patient presents with EMS from an assisted living facility. She reports that she was walking with her walker when the next thing she remembers that she was falling to the ground and struck her head on the linoleum floor. She reports she was not feeling lightheaded or dizzy prior to falling but does not think that she tripped. Denies any chest pain, shortness of breath or lightheadedness prior to her fall. She is not on any anticoagulation or antiplatelet therapies. Denies any chest pain or abdominal pain. Denies any nausea or vomiting. She is complaining of a headache. Denies any double or blurry vision. ROS: as above PHYSICAL EXAM: Constitutional: Patient appears in no acute distress. HENT: Head: Normocephalic. Notable hematoma to the inferior central region of the midline forehead. Bilateral periorbital ecchymosis. Eyes: EOMI, PERRL Mouth/Throat: Mucous membranes moist. Midface stable. No malocclusion. Neck: Trachea midline. Neck supple. No midline cervical spine tenderness palpation. Cardiovascular: RRR, No murmurs, rubs or gallops. Intact distal pulses. Pulmonary/Chest: No respiratory distress. Breath sounds clear and equal bilaterally. No wheezes or rales. No chest wall tenderness to palpation. Abdominal: Abdomen soft, no tenderness, rebound or guarding. Musculoskeletal: No tenderness or deformity noted. +1 pitting edema of bilateral lower extremities extending to bilateral knees with overlying erythema. Skin: Warm and dry. No rash, erythema, pallor or cyanosis Psychiatric: Appropriate mood and affect for situation. Neurological: Alert and keenly responsive. CN II-XII grossly intact, moving all extremities equally and fully. MDM: - Vitals signs stable. - History obtained via patient. History as above. - Chronic conditions affecting care: scoliosis; HTN - Differential diagnoses include, but are not limited to: Intracranial hemorrhage; skull fracture; cervical spine fracture; rib fracture; intra- abdominal traumatic injury - Order placed for continuous cardiac monitoring. At this time, monitor showed rate of 75 bpm with normal sinus rhythm, per my interpretation. - External medical records reviewed. Primary care visit note dated 01/16/2025 was reviewed.. Patient was following for close follow-up for poor social situation. She continues to refuse home health and moving into assisted living. - EKG image interpreted by myself showed normal sinus rhythm. Rate 78 bpm. QT 378. No acute ischemic changes. - Laboratory workup interpreted by myself showed normal WBC; anemia (Hgb 6.8); stable electrolytes other than hypocalcemia (Ca 8.5); normal troponin; normal AST/ALT; normal lipase - CXR image reviewed by myself as no for pneumothorax, per my interpretation. - CT head wo contrast negative for acute intracranial pathology. Noted to have an unchanged left frontal meningioma. - CT face wo contrast negative for facial fracture. - CT cervical spine wo contrast negative for acute fracture. - CT chest with IV contrast negative for acute traumatic injury. Noted to have indeterminate thyroid nodule. - CT abdomen/pelvis with IV contrast negative for acute traumatic injury. Noted to have unchanged right adrenal adenoma. Noted to have constipation and severe spinal stenosis at L4/L5. - Discussed results with patient. She was consented for blood transfusion. Units PRBCs were ordered with 1 unit to transfuse now. - Unclear etiology for the patient's fall at this time. She reports that she does not think she tripped as there was nothing on her floor to trip over. She did not have any presyncopal symptoms per her report. - Discussion was had with case supervisor about patient's case and need for admission - Hospitalist, Dr. Rodas, consulted for admission at 13:25. - Patient admitted to [facility] for further evaluation and management. ASSESSMENT AND PLAN: Diagnosis: Fall from standing; anemia requiring transfusion; facial hematoma Plan: Admit Past Med/Surg History Problem List (Updated 02/15/25 @ 13:14 by Petra Vasquez MD) Facial hematoma (Acute) Anemia requiring transfusions (Acute) Fall from standing (Acute) Falls frequently (Acute) Anemia (Acute) Cellulitis of left hand (Acute) Compression fracture of T4 vertebra (Acute ~09/09/24) Fracture of L3 vertebra Fracture of L2 vertebra Fecal occult blood test positive (Acute) Fracture of transverse process of lumbar vertebra (Acute) Multiple rib fractures (Acute) Cellulitis of left hand (Acute) Skin tear of left forearm without complication (Acute) Compression fracture of T4 vertebra (Acute) Fall (Acute) Vitamin B12 deficiency Vitamin D deficiency Neurogenic claudication due to lumbar spinal stenosis Unwitnessed fall (Acute) Weakness Compression fracture of T4 vertebra (Acute 03/03/24) Compression fracture of the superior endplate of T4 40% loss of vertebral body height. The patient has recurrent falls per the ED report. Syncope Left leg cellulitis Anemia Recurrent falls (Acute) Orbital floor (blow-out) closed fracture Fracture of nasal bone with routine healing Back problem Arthritis Left elbow pain Scoliosis of thoracolumbar region due to degenerative disease of spine in adult Degenerative spondylolisthesis Lumbar spinal stenosis Neck Pain Anxiety and depression Lower extremity edema (Acute) Back pain Medical History Back pain History of recent blood transfusion (08/2024) History of edema History of meningioma of the brain Memory loss Dyspnea on exertion Acute hypokalemia Ambulatory dysfunction Recurrent falls Generalized weakness Cat bite of left hand Iron deficiency anemia Upper GI bleed Compression fracture of T4 vertebra (~03/03/24) Hypertension Kidney infection Surgical History History of esophagogastroduodenoscopy (EGD) (08/2024) History of surgery on left wrist (2021) History of tubal ligation History of section (1982) History of tonsillectomy and adenoidectomy Family History Uncle Lung cancer Aunt Breast cancer Other COPD (chronic obstructive pulmonary disease) No family history of adverse response to anesthesia Denies family history of Ovarian cancer Prostate cancer Diabetes Myocardial infarction Colorectal cancer Stroke Social History Smoking Status: Light tobacco smoker Tobacco Type: Cigarettes Age Started Using Tobacco: 16; packs per day: 0.50 (smoking one cigarette a week); Cigarettes Per Day: 1 cigarette a week--advised on policy; Second Hand Exposure: No; Do You Dip or Chew Tobacco: No; Hx Alcohol Use: Yes Alcohol type: wine Alcohol Intake Frequency: 2-3 x/Week Hx Substance Use: No Preferred Language: Lao Communication Ability: Effective Visual Impairment: No Limitations Hearing Ability: Normal Etcher Machine Required: No Beliefs That Will Affect Care: None marital status: / Current Living Situation: Alone Current Living Situation Comment: Lives in senior apartments--per pt not assisted living current occupational status: retired Feels Safe at Home: Yes Safety Concerns Comment: does not feel safe at her building due safety risks/fell on the ice Childhood Exposure to Second-Hand Smoke: No Diet: low salt and regular caffeine: No Dental Care, Regularly: No Physical Activity Frequency: Does not Exercise Seatbelt Use: always Sunscreen Use: No Assistive Devices: Glasses and Walker Allergies Allergies Allergy/AdvReac Type Severity Reaction Status Date / Time Sulfa (Sulfonamide Allergy Intermediate BUMPS ON Verified 01/16/25 15:18 Antibiotics) TONGUE hydrocodone AdvReac Intermediate Vomiting Verified 01/16/25 15:18 Home Meds Home Medications Medication Instructions Recorded Confirmed multivitamin (Multiple Vitamins 1 tab PO QAM 04/01/22 02/15/25 tablet) calcium carbonate (Tums Extra 600 mg PO BID PRN Heartburn 11/04/24 02/15/25 Strength Smoothies) ferrous sulfate 325 mg (65 mg 0 mg PO Q OTHER DAY 02/15/25 02/15/25 iron) tablet Previous Rx's Medication Instructions Recorded compr.stocking,knee,long,small #12 ea 04/01/22 Wheeled Walker #1 ea 03/11/24 peg 3350-electrolytes 236 240 ml PO Q10M #4,000 mL 12/09/24 gram-22.74 gram-6.74 gram-5.86 gram solution (Golytely) Results & Data (ED) Vital Signs Vital Signs - 24 hr 02/15/25 10:35 02/15/25 11:26 02/15/25 11:29 Temperature 36.6 C Temperature Source Oral Pulse Rate 79 80 Pulse Rate [Right Finger] 81 Pulse Rate from SpO2 Sensor Respiratory Rate 16 18 18 Respiratory Effort / Characteristics Non-Labored Spontaneous Respiratory Depth Normal Respiratory Pattern Regular Blood Pressure 135/68 Blood Pressure [Right Arm] 143/79 H Blood Pressure Mean 90 Blood Pressure Mean [Right Arm] 100 Pulse Oximetry 96 92 92 Oxygen Delivery Method Room Air Room Air Room Air Sepsis Recent Fever Within 48 Hours No Sepsis New/Unexplained Change in Mental Status No Sepsis Action Taken by Nursing No Action Required 02/15/25 11:30 02/15/25 11:33 02/15/25 11:42 Temperature Temperature Source Pulse Rate 84 78 Pulse Rate [Right Finger] Pulse Rate from SpO2 Sensor 78 Respiratory Rate 21 18 Respiratory Effort / Characteristics Respiratory Depth Respiratory Pattern Blood Pressure 116/74 Blood Pressure [Right Arm] Blood Pressure Mean 86 Blood Pressure Mean [Right Arm] Pulse Oximetry 95 Oxygen Delivery Method Sepsis Recent Fever Within 48 Hours Sepsis New/Unexplained Change in Mental Status Sepsis Action Taken by Nursing 02/15/25 12:00 02/15/25 12:11 02/15/25 12:11 Temperature Temperature Source Pulse Rate Pulse Rate [Right Finger] 85 Pulse Rate from SpO2 Sensor Respiratory Rate 20 Respiratory Effort / Characteristics Respiratory Depth Respiratory Pattern Blood Pressure 114/81 114/81 Blood Pressure [Right Arm] 114/81 Blood Pressure Mean 87 87 Blood Pressure Mean [Right Arm] 92 Pulse Oximetry 94 Oxygen Delivery Method Room Air Sepsis Recent Fever Within 48 Hours Sepsis New/Unexplained Change in Mental Status Sepsis Action Taken by Nursing 02/15/25 12:11 02/15/25 12:21 02/15/25 12:25 Temperature Temperature Source Pulse Rate 84 85 Pulse Rate [Right Finger] Pulse Rate from SpO2 Sensor Respiratory Rate 20 Respiratory Effort / Characteristics Respiratory Depth Respiratory Pattern Blood Pressure 114/81 Blood Pressure [Right Arm] Blood Pressure Mean 87 Blood Pressure Mean [Right Arm] Pulse Oximetry Oxygen Delivery Method Sepsis Recent Fever Within 48 Hours Sepsis New/Unexplained Change in Mental Status Sepsis Action Taken by Nursing 02/15/25 12:30 02/15/25 12:30 02/15/25 12:47 Temperature Temperature Source Pulse Rate 83 Pulse Rate [Right Finger] 75 Pulse Rate from SpO2 Sensor Respiratory Rate 15 18 Respiratory Effort / Characteristics Respiratory Depth Respiratory Pattern Blood Pressure 141/87 H Blood Pressure [Right Arm] 141/87 H Blood Pressure Mean 100 Blood Pressure Mean [Right Arm] 105 Pulse Oximetry 96 Oxygen Delivery Method Room Air Sepsis Recent Fever Within 48 Hours Sepsis New/Unexplained Change in Mental Status Sepsis Action Taken by Nursing 02/15/25 13:00 Temperature Temperature Source Pulse Rate Pulse Rate [Right Finger] 74 Pulse Rate from SpO2 Sensor Respiratory Rate 18 Respiratory Effort / Characteristics Respiratory Depth Respiratory Pattern Blood Pressure Blood Pressure [Right Arm] 144/69 H Blood Pressure Mean Blood Pressure Mean [Right Arm] 94 Pulse Oximetry 95 Oxygen Delivery Method Room Air Sepsis Recent Fever Within 48 Hours Sepsis New/Unexplained Change in Mental Status Sepsis Action Taken by Nursing Laboratory Data 02/15/25 10:44 02/15/25 10:44 Lab Results 02/15/25 Range/Units 10:44 WBC 7.16 (4.8-10.8) K/ul RBC 3.41 L (4.20-5.40) M/uL Hgb 6.8 L* (12.0-16.0) g/dl Hct 23.6 L (37.0-47.0) % MCV 69.2 L (80.0-100.0) fL MCH 19.9 L (25.0-34.0) pg MCHC 28.8 L (32.0-36.0) g/dL RDW Std Deviation 40.1 (36.4-46.3) fL RDW Coeff of Dunia 16.1 H (11.5-14.5) % Plt Count 368 (130-400) K/uL MPV 9.0 L (9.4-12.4) fL Immature Gran % (Auto) 0.3 % Neut % (Auto) 76.5 % Lymph % (Auto) 14.0 % [place] % (Auto) 6.6 % Eos % (Auto) 2.0 % Baso % (Auto) 0.6 % Neut # (Auto) 5.49 (1.40-6.50) K/uL Lymph # (Auto) 1.00 L (1.20-3.40) K/uL [place] # (Auto) 0.47 (0.11-0.59) K/uL Eos # (Auto) 0.14 (0.00-0.50) K/uL Baso # (Auto) 0.04 (0.00-0.20) K/uL Immature Gran # (Auto) 0.02 (0.01-0.20) K/uL Polychromasia 1+ Hypochromasia Present Microcytosis Present Ovalocytes 1+ PT Cancelled INR Cancelled APTT Cancelled PTT Ratio Cancelled Sodium 139 (136-145) mmol/L Potassium 3.6 (3.5-5.1) mmol/L Chloride 107 (98-107) mmol/L Carbon Dioxide 26 (21-32) mmol/L Anion Gap 6 (3-11) BUN 17 (6-23) mg/dl Creatinine 0.62 (0.6-1.2) mg/dl Est Cr Clr Drug Dosing 57.5 ml/min eGFR 92.24 BUN/Creatinine Ratio 27.4 H (10-20) Glucose 91 (70-99(Fasting)) mg/dl Calcium 8.5 L (8.6-10.3) mg/dl Total Bilirubin 0.3 (0.2-1.0) mg/dl AST 22 (13-39) U/L ALT 22 (7-52) U/L Alkaline Phosphatase 63 (34-104) U/L Troponin I High Sens 7.0 (0-14) pg/ml Total Protein 6.0 (6.0-8.3) gm/dl Albumin 3.2 L (3.4-5.0) gm/dl Globulin 2.8 (2.5-4.0) gm/dl Albumin/Globulin Ratio 1.1 (0.9-2) Lipase 22 (11-82) U/L Administered Medications Discontinued Medications Ioversol (Optiray 320 100ml) 94 ml IV ONCE ONE Stop: 02/15/25 11:59 Last Admin: 02/15/25 11:59 Dose: 94 ml Documented By: LD Imaging Data Radiologist's Impression: Abdomen/Pelvis CT 02/15/25 11:14 Clinical History: Fall Technique: Axial computed tomography images were obtained of the abdomen and pelvis after the administration of intravenous contrast. Comparison is made to the prior CT dated 09/09/2024. Findings: The liver is overall of normal size, attenuation, and contour with no sign of cirrhosis or significant fatty infiltration. No liver mass lesion is seen. The portal vein is patent. The gallbladder appears unremarkable. No bile duct dilatation is noted. The spleen is of normal size. No focal splenic lesion is evident. The pancreas appears normal with no sign of acute or chronic pancreatitis and no mass lesion noted. The pancreatic duct is of normal caliber. There is an unchanged 1.3 cm low-attenuation right adrenal nodule, likely a benign adenoma. The left adrenal gland appears normal No definite renal or proximal ureteral calculi are seen on this contrast-enhanced study. There is no hydronephrosis or perinephric stranding. No renal mass lesion is identified. There are multiple bilateral renal cysts, measuring up to 1.5 cm The abdominal aorta is of normal caliber. There is extensive multifocal atherosclerotic plaque. No abdominal adenopathy is seen. There is a small hiatal hernia. There is no sign of small bowel obstruction. There is constipation. No free intraperitoneal fluid or air is identified. No distal ureteral or bladder calculi are seen. No bladder mass lesion is evident. The iliac arteries are of normal caliber. There are severe stenoses of the common iliac arteries bilaterally. No pelvic adenopathy is noted. Lumbar scoliosis and degenerative disc disease is seen. There is severe spinal stenosis at L4-5. There is grade 2 anterolisthesis at L4-5. No fracture is identified. No focal osseous lesion is seen Impression: 1. No definite sign of abdominal organ injury after trauma 2. Extensive atherosclerosis with severe stenoses of the common iliac arteries bilaterally 3. Unchanged right adrenal adenoma 4. Bilateral renal cysts 5. Constipation 6. Severe spinal stenosis at L4-5 Electronically signed by Kirt Winter 02-15-2025 12:[address] 02/15/25 11:14 Clinical history: Injury Technique: Axial computed tomography images were obtained of the cervical spine without intravenous contrast. Sagittal and coronal reconstructions were obtained Comparison is made to the prior CT dated 11/04/2024 Findings: No fracture is identified. No listhesis is seen. No focal osseous lesion is evident. 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 There is left neural foramen narrowing that may affect the left C3 nerve root At C3-4, there is mild spinal stenosis due to a disc bulge. There is right greater than left neural foramen narrowing that may affect the exiting C4 nerve roots At C4-5, there is mild spinal stenosis due to a disc bulge. There is bilateral neural foramen narrowing that may affect the exiting C5 nerve roots At C5-6, there is mild spinal stenosis due to a disc bulge. There is bilateral neural foramen narrowing that may affect the exiting C6 nerve roots At C6-7, there is a disc bulge without clear spinal cord deformity. There is left neural foramen narrowing that may affect the left C7 nerve root At C7-T1, there is mild disc bulge. There is no spinal stenosis. The neural foramen are patent There is mild emphysema involving the lung apices. There are small thyroid nodules. No foreign body is seen Impression: 1. No definite cervical spine fracture 2. Mild spinal stenosis from C3-4 through C5-6 3. Left C2-3, bilateral C3-4 through C5-6, and left C6-7 neural foramen narrowing. This may affect the exiting nerve roots 4. Indeterminate thyroid nodules. A follow-up thyroid ultrasound could be obtained ACT 112: Positive. There are findings on this exam that require communication between the performing entity and the patient following Patient Test Result Information Act ([place] ACT 112) guidelines. Electronically signed by Kirt Winter 02-15-2025 13:[address] 02/15/25 11:14 Clinical history: Fall Technique: Axial computed tomography images were obtained of the chest after the administration of intravenous contrast Comparison is made to the prior CT dated 09/09/2024 Findings: There is mild emphysema. There is mild subsegmental atelectasis in both lower lobes. There is no pleural effusion or pneumothorax. There is no sign of pulmonary fibrosis or other diffuse interstitial process. No endobronchial lesion is seen There is no mediastinal, hilar, or axillary adenopathy. The thoracic aorta appears unremarkable with no sign of aneurysm or dissection. There is no pericardial effusion There is a small nodule in the left thyroid lobe. There are apparent old fractures of the left posterior eighth and ninth ribs. There are multiple old right rib fractures. There is an unchanged mild T4 compression fracture Impression: 1. Mild emphysema 2. Mild bilateral lung base atelectasis 3. Small indeterminate thyroid nodule. A follow-up thyroid ultrasound could be obtained Electronically signed by Kirt Winter 02-15-2025 12:44 PM Chest X-Ray 02/15/25 11:14 Technique: A frontal view of the chest was obtained Comparison is made to the prior examination dated 11/06/2024 Findings: There are no confluent pulmonary infiltrates. The heart size is within normal limits. No pleural effusion or pneumothorax is seen. There is no definite pulmonary nodule. No fracture is noted. No foreign body is seen Impression: No active disease Electronically signed by Kirt Winter 02-15-2025 11:[address] 02/15/25 11:14 Clinical history: Trauma Technique: Axial computed tomography images were obtained of the facial bones without intravenous contrast. Sagittal and coronal reconstructions were obtained Findings: No fracture is identified. No focal osseous lesion is noted. There is mild mucosal thickening in the left maxillary sinus. No air-fluid level is seen. The ostiomeatal units are narrowed by mucosal thickening but patent The orbits appear unremarkable. No foreign body is seen. The nasal septum appears midline. No definite nasal polyp is noted Impression: No definite facial bone fracture Electronically signed by Kirt Winter 02-15-2025 12:[address] 02/15/25 11:14 Technique: Axial computed tomography images were obtained of the brain without intravenous contrast. Comparison is made to the prior CT dated 11/04/2024 Findings: There is unchanged cerebral atrophy, within expected limits for the patient's age. Areas of decreased attenuation are seen within the periventricular white matter, likely representing chronic small vessel ischemic disease. There is no definite sign of acute or old infarction. No intracranial hemorrhage is evident. Again seen is a 1.6 cm calcified extra-axial lesion adjacent to the left frontal lobe, likely a meningioma. There is no midline shift or other form of herniation. No hydrocephalus is seen. There is a forehead scalp hematoma No fracture is identified. The orbits and the visualized paranasal sinuses appear unremarkable. The mastoid air cells appear clear. Impression: 1. Cerebral atrophy and chronic small vessel ischemic disease 2. Unchanged suspected left frontal meningioma 3. No sign of intracranial hemorrhage 4. Forehead scalp hematoma Electronically signed by Kirt Winter 02-15-2025 12:35 PM Discharge Plan Visit Data Chief Complaint: Fall Stated Complaint: INJURY ALERT, FALL ED Provider: Petra Vasquez Discharge Problem: Fall from standing, Anemia requiring transfusions, Facial hematoma Patient Disposition: Admitted As Inpatient Condition: Fair Forms Stand Alone Forms: [facility] [employer] Prescriptions Prescriptions: No Action peg 3350-electrolytes [Golytely] 236-22.74-6.74 -5.86 gram recon soln 240 ml PO Q10M Qty: 4000 0RF Rx Instructions: Take per split dose instructions multivitamin [Multiple Vitamins] Tablet 1 tab PO QAM Patient Comments: 02/15- otc unable to verify (DME) compr.stocking,knee,long,small Misc See Rx Instructions .Route Qty: 12 0RF Rx Instructions: As directed (DME) Wheeled Walker Misc See Rx Instructions .Route Qty: 1 0RF Rx Instructions: As directed with a seat ferrous sulfate 325 mg (65 mg iron) tablet 0 mg PO Q OTHER DAY Patient Comments: 02/15- OTC/ last filled 09/17 60 day supply #30 Tums Extra Strength Smoothies 300 mg (750 mg) Tablet,Chewable 600 mg PO BID PRN (Reason: Heartburn) Patient Comments: 02/15- otc unable to verify Referrals Referrals: Bill Stanton DO [Primary Care Provider] -
--- NOTE | 2025-02-15 11:35 | XRay Report ---
Technique: A frontal view of the chest was obtained Comparison is made to the prior examination dated 11/06/2024 Findings: There are no confluent pulmonary infiltrates. The heart size is within normal limits. No pleural effusion or pneumothorax is seen. There is no definite pulmonary nodule. No fracture is noted. No foreign body is seen Impression: No active disease Electronically signed by Kirt Winter 02-15-2025 11:35 AM
[2025-02-15 11:37] LABS: Alanine Aminotransferase 22.0 U/L (7-52); Albumin Globulin Ratio 1.1 (0.9-2); Albumin Level 3.2 gm/dl (3.4-5.0); Alkaline Phosphatase 63.0 U/L (34-104); Anion Gap 6.0 (3-11); Bilirubin,Total 0.3 mg/dl (0.2-1.0); Blood Urea Nitrogen 17.0 mg/dl (6-23); Calcium 8.5 mg/dl (8.6-10.3); Carbon Dioxide 26.0 mmol/L (21-32); Chloride 107.0 mmol/L (98-107); Creatinine Clr Calc Pharmacy 57.5 ml/min; Globulin 2.8 gm/dl (2.5-4.0); Glucose 91.0 mg/dl (70-99(Fasting)); Hematocrit (blood only) 23.6 % (37.0-47.0); Hemoglobin 6.8 g/dl (12.0-16.0); Immature Granulocytes # (auto) 0.02 K/uL (0.01-0.20); Immature Granulocytes % (auto) 0.3 %; Lipase 22.0 U/L (11-82); Mean Corpuscular Hemoglobin 19.9 pg (25.0-34.0); Mean Corpuscular Volume 69.2 fL (80.0-100.0); Platelet Count 368 K/uL (130-400); Potassium 3.6 mmol/L (3.5-5.1); RDW Standard Deviation 40.1 fL (36.4-46.3); Red Blood Count 3.41 M/uL (4.20-5.40); Sodium 139.0 mmol/L (136-145); Total Protein 6.0 gm/dl (6.0-8.3); White Blood Count 7.16 K/ul (4.8-10.8)
[2025-02-15] MEDS: OPTIRAY 320 100ml IV ONE (11:59)
[2025-02-15 12:32] LABS: Hypochromasia Present; Microcytosis Present; Ovalocytes 1+; Polychromasia 1+
--- NOTE | 2025-02-15 12:35 | CT Scan Report ---
Technique: Axial computed tomography images were obtained of the brain without intravenous contrast. Comparison is made to the prior CT dated 11/04/2024 Findings: There is unchanged cerebral atrophy, within expected limits for the patient's age. Areas of decreased attenuation are seen within the periventricular white matter, likely representing chronic small vessel ischemic disease. There is no definite sign of acute or old infarction. No intracranial hemorrhage is evident. Again seen is a 1.6 cm calcified extra-axial lesion adjacent to the left frontal lobe, likely a meningioma. There is no midline shift or other form of herniation. No hydrocephalus is seen. There is a forehead scalp hematoma No fracture is identified. The orbits and the visualized paranasal sinuses appear unremarkable. The mastoid air cells appear clear. Impression: 1. Cerebral atrophy and chronic small vessel ischemic disease 2. Unchanged suspected left frontal meningioma 3. No sign of intracranial hemorrhage 4. Forehead scalp hematoma Electronically signed by Kirt Winter 02-15-2025 12:35 PM
--- NOTE | 2025-02-15 12:44 | CT Scan Report ---
Clinical history: Fall Technique: Axial computed tomography images were obtained of the chest after the administration of intravenous contrast Comparison is made to the prior CT dated 09/09/2024 Findings: There is mild emphysema. There is mild subsegmental atelectasis in both lower lobes. There is no pleural effusion or pneumothorax. There is no sign of pulmonary fibrosis or other diffuse interstitial process. No endobronchial lesion is seen There is no mediastinal, hilar, or axillary adenopathy. The thoracic aorta appears unremarkable with no sign of aneurysm or dissection. There is no pericardial effusion There is a small nodule in the left thyroid lobe. There are apparent old fractures of the left posterior eighth and ninth ribs. There are multiple old right rib fractures. There is an unchanged mild T4 compression fracture Impression: 1. Mild emphysema 2. Mild bilateral lung base atelectasis 3. Small indeterminate thyroid nodule. A follow-up thyroid ultrasound could be obtained Electronically signed by Kirt Winter 02-15-2025 12:44 PM
--- NOTE | 2025-02-15 12:49 | CT Scan Report ---
Clinical History: Fall Technique: Axial computed tomography images were obtained of the abdomen and pelvis after the administration of intravenous contrast. Comparison is made to the prior CT dated 09/09/2024. Findings: The liver is overall of normal size, attenuation, and contour with no sign of cirrhosis or significant fatty infiltration. No liver mass lesion is seen. The portal vein is patent. The gallbladder appears unremarkable. No bile duct dilatation is noted. The spleen is of normal size. No focal splenic lesion is evident. The pancreas appears normal with no sign of acute or chronic pancreatitis and no mass lesion noted. The pancreatic duct is of normal caliber. There is an unchanged 1.3 cm low-attenuation right adrenal nodule, likely a benign adenoma. The left adrenal gland appears normal No definite renal or proximal ureteral calculi are seen on this contrast-enhanced study. There is no hydronephrosis or perinephric stranding. No renal mass lesion is identified. There are multiple bilateral renal cysts, measuring up to 1.5 cm The abdominal aorta is of normal caliber. There is extensive multifocal atherosclerotic plaque. No abdominal adenopathy is seen. There is a small hiatal hernia. There is no sign of small bowel obstruction. There is constipation. No free intraperitoneal fluid or air is identified. No distal ureteral or bladder calculi are seen. No bladder mass lesion is evident. The iliac arteries are of normal caliber. There are severe stenoses of the common iliac arteries bilaterally. No pelvic adenopathy is noted. Lumbar scoliosis and degenerative disc disease is seen. There is severe spinal stenosis at L4-5. There is grade 2 anterolisthesis at L4-5. No fracture is identified. No focal osseous lesion is seen Impression: 1. No definite sign of abdominal organ injury after trauma 2. Extensive atherosclerosis with severe stenoses of the common iliac arteries bilaterally 3. Unchanged right adrenal adenoma 4. Bilateral renal cysts 5. Constipation 6. Severe spinal stenosis at L4-5 Electronically signed by Kirt Winter 02-15-2025 12:48 PM
--- NOTE | 2025-02-15 12:51 | CT Scan Report ---
Clinical history: Trauma Technique: Axial computed tomography images were obtained of the facial bones without intravenous contrast. Sagittal and coronal reconstructions were obtained Findings: No fracture is identified. No focal osseous lesion is noted. There is mild mucosal thickening in the left maxillary sinus. No air-fluid level is seen. The ostiomeatal units are narrowed by mucosal thickening but patent The orbits appear unremarkable. No foreign body is seen. The nasal septum appears midline. No definite nasal polyp is noted Impression: No definite facial bone fracture Electronically signed by Kirt Winter 02-15-2025 12:51 PM
[2025-02-15] MEDS ORDERED: SODIUM CHLORIDE 0.9% 100 ML IV PRN (13:11)
--- NOTE | 2025-02-15 13:20 | CT Scan Report ---
Clinical history: Injury Technique: Axial computed tomography images were obtained of the cervical spine without intravenous contrast. Sagittal and coronal reconstructions were obtained Comparison is made to the prior CT dated 11/04/2024 Findings: No fracture is identified. No listhesis is seen. No focal osseous lesion is evident. 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 There is left neural foramen narrowing that may affect the left C3 nerve root At C3-4, there is mild spinal stenosis due to a disc bulge. There is right greater than left neural foramen narrowing that may affect the exiting C4 nerve roots At C4-5, there is mild spinal stenosis due to a disc bulge. There is bilateral neural foramen narrowing that may affect the exiting C5 nerve roots At C5-6, there is mild spinal stenosis due to a disc bulge. There is bilateral neural foramen narrowing that may affect the exiting C6 nerve roots At C6-7, there is a disc bulge without clear spinal cord deformity. There is left neural foramen narrowing that may affect the left C7 nerve root At C7-T1, there is mild disc bulge. There is no spinal stenosis. The neural foramen are patent There is mild emphysema involving the lung apices. There are small thyroid nodules. No foreign body is seen Impression: 1. No definite cervical spine fracture 2. Mild spinal stenosis from C3-4 through C5-6 3. Left C2-3, bilateral C3-4 through C5-6, and left C6-7 neural foramen narrowing. This may affect the exiting nerve roots 4. Indeterminate thyroid nodules. A follow-up thyroid ultrasound could be obtained ACT 112: Positive. There are findings on this exam that require communication between the performing entity and the patient following Patient Test Result Information Act ([place] ACT 112) guidelines. Electronically signed by Kirt Winter 02-15-2025 13:20 PM
[2025-02-15 13:50] LABS: INR 1.0 (0.9-1.1); Partial Thromboplastin Time 28 Seconds (21-31); Prothrombin Time 10.3 Seconds (9.0-12.0)
--- NOTE | 2025-02-15 15:14 | History & Physical Report ---
Date of Service February 15, 2025 Assessment & Plan (1) Left leg cellulitis: (2) Recurrent falls: (3) Anemia: (4) Peripheral arterial disease: (5) Chronic heart failure with preserved ejection fraction (HFpEF): (6) Emphysema lung: (7) Head trauma: Plan Berta is a 74-year-old woman who follows fairly frequently he was brought in after a fall with some head/facial trauma she also has a left lower extremity cellulitis # severe left lower extremity cellulitis, fever to 38.7 white blood count normal start cefazolin 2 g IV every 8 hours and elevate extremity CBC and BMP in a.m. # fall with head/facial traumahas hematoma above right eyebrow and bilateral right greater than left periorbital ecchymoses. she is not chronically anticoagulated trauma CT series done in the ED is negative for any other acute injuries. She does have severe anemia I think this is probably chronic and related to iron deficiency anemia from chronic GI blood loss, however, we will monitor her vital signs overnight and keep her on PCU status I will check a H&H at 4 PM to ensure stability as well as a.m. CBC monitor neurostatus, monitor for any signs or symptoms of concussion, stat head CT if decreased level of consciousness # severe anemia hemoglobin 6.8. it was checked in November and it was 8.9. She denies any melena or blood in stool however she has been guaiac positive in the past she is known to have iron deficiency anemia she had an EGD in August of this year by Dr. Boss she had severe/grade D esophagitis with a cratered ulcer at the GE junction and a moderate hiatal hernia his note states she should be taking a twice daily PPI however she is not currently taking any acid suppression. She is also supposed to have a colonoscopy but had inadequate prep at that time, she says it was rescheduled and she again did not have a prep, and may be rescheduled again in February I added on iron studies to the labs drawn in the ED, she may benefit from IV iron this admission check posttransfusion hemoglobin at 4 PM and transfuse another unit if necessary # acute on chronic bilateral lower extremity with weeping according to review of her past history she has chronic HFpEF but went off of Lasix 6 months ago because she did not feel it was benefiting her. She has followed with Dr. Forman in the past. I reviewed her TTE from this spring she had a normal ejection fraction and mild mitral regurgitation. She also has a significant component of venous stasis edema elevate both extremities deferring on trial of diuresis since she is currently infected # intermittent dyspnea, emphysema on chest CT images with history of smoking she probably has some component of COPD trial of albuterol and ipratropium, can discharge on bronchodilator if it is benefiting her # peripheral arterial disease - bilateral severe iliac stenosis noted on abdominal CT fortunately she does not have any foot or ankle wounds she does not seem to have claudication symptoms ordered routine bilateral lower extremity arterial duplex she should be on aspirin and statin for secondary risk prevention, however, would not want to initiate aspirin with her severe iron deficiency anemia. will check lipid panel. # vitamin B12 deficiency - vitamin B12 was in the 200s earlier this year I have started on oral supplements # osteoporosis and vitamin D deficiency - she should be on Ca / vitamin D as outpatient # cervical spinal stenosis and severe lumbar spinal stenosissymptomatic of low back pain and intermittent right thigh pain # DVT ppx - enox 30 sq daily PT/OT eval ordered She wishes to be DNR/DNI Medical decision making is complex for this encounter. High risk diagnoses include severe anemia, head trauma, uncontrolled/untreated severe cellulitis High risk treatments and interventions include: blood transfusion, IV cefazolin History of Present Illness Chief Complaint: fall, hit head Primary Care Provider: Bill Stanton DO The patient is a 74-year-old woman with a history of anemia who was brought in by EMS after she fell. She lives at a [place]-way community. She hit her head during the fall and reports pain over her right eye and forehead, as well as mild pain on the right side of her neck. She doesn't recall tripping on anything and doesn't think she lost consciousness before or after but can't say why she fell. She has had multiple falls in the past and is chronically unsteady on her feet. She sometimes uses a borrowed walker that isn't in good shape. She has chronic intermittent shortness of breath, no cough, and no chest pain, although she sometimes has brief chest pain at rest, few minutes at most. She also has chronic bilateral mid-abdominal pain but no nausea, vomiting, or diarrhea. She doesn't have any issues with urination. Her chronic low back pain has been bothering her more lately, and sometimes when she wakes up, she feels pain radiating down her right leg and buttock, which goes away once she starts moving around. She has chronic swelling in both legs, which has gotten worse recently and started weeping below her knees over the last few days. She says the edema goes up and down. The skin on her left calf is extremely red, tender, and painful. She feels cold all the time but doesn't have a fever or chills. She stopped taking Lasix because it wasn't helping with the swelling. Allergies Allergy/AdvReac Type Severity Reaction Status Date / Time Sulfa (Sulfonamide Allergy Intermediate BUMPS ON Verified 01/16/25 15:18 Antibiotics) TONGUE hydrocodone AdvReac Intermediate Vomiting Verified 01/16/25 15:18 Home Medications Medication Instructions Recorded Confirmed Type compr.stocking,knee,long,small #12 ea 04/01/22 01/16/25 Rx multivitamin (Multiple Vitamins 1 tab PO QAM 04/01/22 02/15/25 History tablet) Wheeled Walker #1 ea 03/11/24 01/16/25 Rx calcium carbonate (Tums Extra 600 mg PO BID PRN Heartburn 11/04/24 02/15/25 History Strength Smoothies) peg 3350-electrolytes 236 240 ml PO Q10M #4,000 mL 12/09/24 02/15/25 Rx gram-22.74 gram-6.74 gram-5.86 gram solution (Golytely) ferrous sulfate 325 mg (65 mg 0 mg PO Q OTHER DAY 02/15/25 02/15/25 History iron) tablet Past Med/Surg History Problem List (Updated 02/15/25 @ 15:14 by Ayala Rodas MD) Head trauma Emphysema lung Chronic heart failure with preserved ejection fraction (HFpEF) Peripheral arterial disease Facial hematoma (Acute) Anemia requiring transfusions (Acute) Fall from standing (Acute) Falls frequently (Acute) Anemia (Acute) Cellulitis of left hand (Acute) Compression fracture of T4 vertebra (Acute ~09/09/24) Fracture of L3 vertebra Fracture of L2 vertebra Fecal occult blood test positive (Acute) Fracture of transverse process of lumbar vertebra (Acute) Multiple rib fractures (Acute) Cellulitis of left hand (Acute) Skin tear of left forearm without complication (Acute) Compression fracture of T4 vertebra (Acute) Fall (Acute) Vitamin B12 deficiency Vitamin D deficiency Neurogenic claudication due to lumbar spinal stenosis Unwitnessed fall (Acute) Weakness Compression fracture of T4 vertebra (Acute 03/03/24) Compression fracture of the superior endplate of T4 40% loss of vertebral body height. The patient has recurrent falls per the ED report. Syncope Left leg cellulitis Anemia Recurrent falls (Acute) Orbital floor (blow-out) closed fracture Fracture of nasal bone with routine healing Back problem Arthritis Left elbow pain Scoliosis of thoracolumbar region due to degenerative disease of spine in adult Degenerative spondylolisthesis Lumbar spinal stenosis Neck Pain Anxiety and depression Lower extremity edema (Acute) Back pain Medical History Back pain History of recent blood transfusion (08/2024) History of edema bilateral legs History of meningioma of the brain per pt was told they were just monitoring--per MRI 01/23/2024 Memory loss Dyspnea on exertion Acute hypokalemia Ambulatory dysfunction using walker for ambulation Recurrent falls multiple falls per patient Generalized weakness Cat bite of left hand was on antibiotic--resolved Iron deficiency anemia Upper GI bleed hx 08/2024 Compression fracture of T4 vertebra (~03/03/24) Compression fracture of the superior endplate of T4 40% loss of vertebral body height. Hypertension Kidney infection hx of Surgical History History of esophagogastroduodenoscopy (EGD) (08/2024) History of surgery on left wrist (2021) ORIF--hardware in place History of tubal ligation 1978 History of section (1982) x1 History of tonsillectomy and adenoidectomy 1955 Family History Uncle Lung cancer Aunt Breast cancer Other COPD (chronic obstructive pulmonary disease) No family history of adverse response to anesthesia Denies family history of Ovarian cancer Prostate cancer Diabetes Myocardial infarction Colorectal cancer Stroke Social History Smoking Status: Light tobacco smoker Tobacco Type: Cigarettes Age Started Using Tobacco: 16; packs per day: 0.50 (smoking one cigarette a week); Cigarettes Per Day: 1 cigarette a week--advised on policy; Second Hand Exposure: No; Do You Dip or Chew Tobacco: No; Hx Alcohol Use: Yes Alcohol type: wine Alcohol Intake Frequency: 2-3 x/Week Hx Substance Use: No Preferred Language: Belarusian Communication Ability: Effective Visual Impairment: No Limitations Hearing Ability: Normal Can Handler Required: No Beliefs That Will Affect Care: None marital status: / Current Living Situation: Alone Current Living Situation Comment: Lives in senior apartments--per pt not assisted living current occupational status: retired Feels Safe at Home: Yes Safety Concerns Comment: does not feel safe at her building due safety risks/fell on the ice Childhood Exposure to Second-Hand Smoke: No Diet: low salt and regular caffeine: No Dental Care, Regularly: No Physical Activity Frequency: Does not Exercise Seatbelt Use: always Sunscreen Use: No Assistive Devices: Glasses and Walker Review of Systems Review of Systems: All systems reviewed & are unremarkable except as noted in HPI & below Constitutional: double vision, nasal mucus drainage - white and stringy, and bilateral intermittent eye tearing, ever since the fall last year where she hit her face Physical Exam Physical Exam: General Appearance: Frail, appears older than age. Vital signs: Reviewed past 24h vital signs in EMR, unremarkable. HEENT: Hematoma on forehead above right eye, ~4 cm. Bilateral periorbital ecchymosis, more pronounced on right. Pupils equal, round, reactive to light. No conjunctival injection. Respiratory: Clear to auscultation bilaterally. No rhonchi, rales, or wheezes. Cardiovascular: Regular rhythm, no murmurs, rubs, or gallops. No JVD. Gastrointestinal: Soft, nontender, nondistended, normal bowel tones. Back, Musculoskeletal: Sarcopenia in all extremities. Mild paraspinous muscle tenderness on right posterior neck. No C-spine tenderness. Severely kyphotic. Extremities: Bilateral feet warm, well perfused, 2+ dorsalis pedis pulses. No wounds or ulcers on feet or ankles. Right lower extremity with venous stasis erythema and edema from upper patrick to foot, mostly calf and ankle. Left lower extremity with significant pitting edema from below knee to ankle. Both sides with weeping fluid. Left calf with severe dark erythema, warmth, induration, tender. this is asymmetric with the right Skin: Warm, dry, no generalized rashes. Neurological: AOx4, normal speech and mentation, goldberg x 4. Psychiatric: Normal. Results & Data Results & Data Vital Signs (Past 12 Hours) Vital Signs Temp Pulse Pulse Resp BP BP Pulse Ox 02/15/25 15:00 36.7 C 76 15 138/70 95 02/15/25 14:42 77 19 02/15/25 14:30 164/72 H 02/15/25 14:30 164/72 H 02/15/25 14:30 164/72 H 02/15/25 14:30 77 18 164/72 H 98 02/15/25 14:24 79 18 98 02/15/25 14:21 81 18 96 02/15/25 14:15 80 22 92 02/15/25 14:15 134/82 02/15/25 14:15 134/82 02/15/25 14:15 134/82 02/15/25 14:15 38.7 C H 79 18 134/82 95 02/15/25 14:12 60 16 97 02/15/25 14:03 77 15 94 02/15/25 14:00 114/64 02/15/25 14:00 158/78 H 02/15/25 14:00 114/64 02/15/25 14:00 36.5 C 80 18 114/64 97 02/15/25 14:00 36.5 C 80 18 114/64 98 02/15/25 13:59 36.5 C 77 16 137/67 97 02/15/25 13:58 159/64 H 02/15/25 13:57 68 23 100 02/15/25 13:56 137/67 02/15/25 13:56 137/67 02/15/25 13:54 79 15 100 02/15/25 13:45 88 21 95 02/15/25 13:30 144/69 H 02/15/25 13:30 144/69 H 02/15/25 13:30 144/69 H 02/15/25 13:30 74 23 93 02/15/25 13:21 76 11 L 95 02/15/25 13:15 60 20 97 02/15/25 13:00 77 19 92 02/15/25 13:00 133/77 02/15/25 13:00 144/60 H 02/15/25 13:00 144/60 H 02/15/25 13:00 133/77 02/15/25 13:00 74 18 144/69 H 95 02/15/25 12:54 73 16 02/15/25 12:48 79 20 02/15/25 12:47 75 18 141/87 H 96 02/15/25 12:30 83 15 02/15/25 12:30 141/87 H 02/15/25 12:25 85 02/15/25 12:21 84 20 02/15/25 12:11 114/81 02/15/25 12:11 114/81 02/15/25 12:11 114/81 02/15/25 12:00 85 20 114/81 94 02/15/25 11:42 78 18 95 02/15/25 11:33 84 21 02/15/25 11:30 116/74 02/15/25 11:29 80 18 92 02/15/25 11:26 81 18 143/79 H 92 02/15/25 10:35 36.6 C 79 16 135/68 96 O2 Del Method 02/15/25 15:00 02/15/25 14:42 02/15/25 14:30 02/15/25 14:30 02/15/25 14:30 02/15/25 14:30 02/15/25 14:24 02/15/25 14:21 02/15/25 14:15 02/15/25 14:15 02/15/25 14:15 02/15/25 14:15 02/15/25 14:15 02/15/25 14:12 02/15/25 14:03 02/15/25 14:00 02/15/25 14:00 02/15/25 14:00 02/15/25 14:00 02/15/25 14:00 Room Air 02/15/25 13:59 02/15/25 13:58 02/15/25 13:57 02/15/25 13:56 02/15/25 13:56 02/15/25 13:54 02/15/25 13:45 02/15/25 13:30 02/15/25 13:30 02/15/25 13:30 02/15/25 13:30 02/15/25 13:21 02/15/25 13:15 02/15/25 13:00 02/15/25 13:00 02/15/25 13:00 02/15/25 13:00 02/15/25 13:00 02/15/25 13:00 Room Air 02/15/25 12:54 02/15/25 12:48 02/15/25 12:47 Room Air 02/15/25 12:30 02/15/25 12:30 02/15/25 12:25 02/15/25 12:21 02/15/25 12:11 02/15/25 12:11 02/15/25 12:11 02/15/25 12:00 Room Air 02/15/25 11:42 02/15/25 11:33 02/15/25 11:30 02/15/25 11:29 Room Air 02/15/25 11:26 Room Air 02/15/25 10:35 Room Air Laboratory Results CXR: I personally reviewed and interpreted the chest x-ray film and it showed: clear chest x-ray EKG is ordered and still pending - Laboratory Studies: - WBC: 7 - Hemoglobin: 6.8 (8.9 in late November) - Platelets: Normal - MCV: Low at 69 - Sodium: 139 - Potassium: 3.6 - BUN: 17 - Creatinine: 0.62 - Serum iron: 17 (11/2024) - Transferrin: 308 (11/2024) - Transferrin saturation: 4% (11/2024) - Ferritin: 18 (11/2024) - LFTs: Normal - Albumin: Mildly low at 3.2 - Lipase: 22 - B12 level: 216 (11/2024) - Vitamin D level: 15 (11/2024) - Imaging: - Head CT: Cerebral atrophy, chronic small vessel ischemic disease, left frontal meningioma unchanged, no intracranial hemorrhage, forehead scalp hematoma - Face CT: Negative for facial bone fracture - Chest x-ray: Negative for active disease - Chest CT: Mild emphysema, mild bibasilar atelectasis, small indeterminate thyroid nodule - C-spine CT: Mild spinal stenosis, no C-spine fracture - Abdomen and pelvis CT: Extensive atherosclerosis, severe bilateral iliac artery stenoses, unchanged right adrenal adenoma, bilateral renal cysts, constipation, severe L4-5 spinal stenosis Code Status & VTE Plan VTE Prophylaxis Plan VTE Prophylaxis will be ordered: Yes PG Care Time/CCT Total # of Minutes Spent Total Time Spent with Patient: Total time spent is greater than 50% in coordination of care (as documented) at patient's floor/unit and/or counseling patient: Coding Level of Care Code 57030 INT INP/OBS CARE MIN Diagnoses Left leg cellulitis L03.116 Recurrent falls R29.6 Anemia D64.9 Peripheral arterial disease I73.9 Chronic heart failure with preserved ejection fraction (HFpEF) I50.32 Emphysema lung J43.9 Head trauma S09.90XA
[2025-02-15] MEDS ORDERED: IPRATROPIUM BROMIDE/ALBUTEROL respimat INH INH SCH (17:00)
[2025-02-15] MEDS ORDERED: MAGNESIUM HYDROXIDE SUSP 30 ML UDC PO PRN (17:05)
[2025-02-15] MEDS ORDERED: POLYETHYLENE (MIRALAX) 17 GM PACK PO PRN (17:05)
[2025-02-15] MEDS ORDERED: ONDANSETRON INJ 2 MG/ML 2 ML VIAL IV PRN (17:05)
[2025-02-15] MEDS ORDERED: ALUMINUM/MAGNESIUM SUSP 30 ML UDC PO PRN (17:05)
--- NOTE | 2025-02-15 17:33 | Communication Note ---
Date of Service: February 15, 2025 Photo of legs taken in ED LLE cellulitis Bilateral venous stasis disease, bilateral pitting edema with skin weeping
[2025-02-15 18:11] LABS: Hematocrit (blood only) 28.8 % (37.0-47.0); Hemoglobin 8.3 g/dl (12.0-16.0)
[2025-02-15] MEDS: IPRATROPIUM BROMIDE HFA INHALER INH SCH (18:18)
[2025-02-15] MEDS: ALBUTEROL HFA 8 GM INHALER INH SCH (18:18)
[2025-02-15 18:27] LABS: Iron 42.0 mcg/dl (35-150); Transferrin 277.0 mg/dl (200-360)
[2025-02-15 18:48] LABS: Ferritin 8.5 ng/ml (8-388)
[2025-02-15] MEDS: MELATONIN 3 MG TAB PO PRN (20:17)
--- NOTE | 2025-02-16 07:15 | Hospitalist Progress Note ---
Date of Service February 16, 2025 Assessment & Plan (1) Unwitnessed fall: (2) Microcytic hypochromic anemia: (3) Unwitnessed fall: (4) Facial hematoma: (5) Left leg cellulitis: (6) Peripheral arterial disease: (7) Symptomatic anemia: (8) Venous insufficiency of both lower extremities: (9) Chronic heart failure with preserved ejection fraction (HFpEF): Plan In summary this is a 74-year-old female admitted after an unwitnessed fall with symptomatic anemia among other acute medical conditions #Unwitnessed fall // Right supraorbital hematoma // Geriatric frailty With respect to the patient's unwitnessed fall, this is most likely consequential of her frailty including generalized muscle atrophy, microcytic hypochromic anemia of which she was symptomatic, left leg cellulitis with superimposed bilateral lower extremity venous insufficiency with associated ambulatory dysfunction requiring a walker for assistance Management of the patient's anemia is summarized below Continue to monitor for any neurologic change or altered mental status Pending orthostatic vital signs PT/OT ordered #Symptomatic anemia // Microcytic hypochromic anemia Hemoglobin on 02/16 after transfusion 8.0; MCV 71.3, MCHC 28.7, RDW 16.7; b aseline values are similar to this; assessment thus far is most consistent with microcytic hypochromic anemia; an iron panel was ordered by the admitting provider which is relatively unremarkable; the patient is scheduled for colonoscopy in the outpatient setting but has been unable to be fully completed due to inadequate prep, if this was consequential of slow gastrointestinal blood loss, I would suspect that there would be significant iron abnormalities, further diagnostic testing below Reticulocyte count pending #Left lower extremity cellulitis Clinically the patient has a left lower extremity cellulitis; there absence of a leukocytosis is likely consequential of their age and inability to mount such a response Continue Ancef 2 g IV every 8 hours The remainder the patient's chronic medical conditions are stable and do not require adjustment to their outpatient regimen at this time Admission and Anticipated Discharge Date Admission Date: February 15, 2025 Subjective Ms. Foy is a 74-year-old female whose active medical conditions include heart failure with preserved ejection fraction, severe peripheral arterial disease, multifactorial anemia, recurrent falls, multiple vitamin deficiencies among other chronic medical conditions who presented to the [facility] on 02/15 after an unwitnessed fall, subsequently admitted for symptomatic anemia. No acute overnight events; the patient this morning continues to have some discomfort of the right forehead where they have a moderate-sized hematoma; they feel as though their lower extremity swelling has improved and denies any associated discomfort involving the left lower extremity specifically. They have not had a bowel movement since admission, though they note they have intermittent constipation that can take anywhere from 5 to 7 days between bowel movements. They cannot recall their last bowel movement at this time. Review of Systems Review of Systems: Review of constitutional, cardiovascular, pulmonary, musculoskeletal, integumentary, neurologic systems was unremarkable except for pertinent positive and negative findings discussed above Physical Exam Physical Exam: General: Elderly female in no acute distress Vital Signs: Reviewed HEENT: Periorbital ecchymosis OU; no notable subconjunctival hemorrhage; pupils equally round and reactive to light with extraocular motion intact; patient endorses chronic horizontal diplopia; no appreciable nystagmus; 2 cm x 2 cm hematoma overlying the right superior orbital ridge with tenderness to palpation; no additional noted traumatic injuries, bruising, or abnormal findings Pulmonary: Symmetric chest wall excursion without restriction; clear to auscultation bilaterally Cardiovascular: Regular rate and rhythm without murmurs, rubs, or gallops; S1 and S2 normal; bilateral radial and posterior tibial pulse 2+; trace to 1+ pitting edema of the right lower extremity distal to the mid leg; 1+ pitting edema involving the left leg, not extending into the left foot Neurologic: Cranial nerves II through XII grossly intact; no discernible focal weakness or paresthesia Skin: Circumferential erythema involving the left leg, radiating heat and slightly tender to palpation Results & Data Results & Data Vital Signs (Past 12 Hours) Vital Signs Temp Pulse Pulse Resp BP Pulse Ox O2 Del Method 02/16/25 04:20 36.4 C L 76 22 111/61 93 Nasal Cannula 02/15/25 21:48 79 02/15/25 19:59 36.5 C 74 22 99/60 L 90 Room Air 02/15/25 19:20 Room Air O2 Flow Rate 02/16/25 04:20 2 02/15/25 21:48 02/15/25 19:59 02/15/25 19:20 Laboratory Results Hemoglobin trend 8.0, 7.3, 8.3, 6.8 MCV 71.3, MCHC 28.7, RDW 16.7 BMP unremarkable Urinalysis unremarkable Diagnostic Findings Pending lower extremity arterial doppler PG Care Time/CCT Total # of Minutes Spent Total Time Spent with Patient: Total time spent is greater than 50% in coordination of care (as documented) at patient's floor/unit and/or counseling patient: Coding Level of Care Code 93399 SUB INP/OBS CARE 2/35MIN Diagnoses Unwitnessed fall R29.6 Microcytic hypochromic anemia D50.9 Facial hematoma, initial encounter S00.83XA Encounter type: initial encounter Left leg cellulitis L03.116 Peripheral arterial disease I73.9 Symptomatic anemia D64.9 Venous insufficiency of both lower extremities I87.2 Chronic heart failure with preserved ejection fraction (HFpEF) I50.32 (3) Facial hematoma Encounter type: initial encounter Qualified Code(s): S00.83XA - Contusion of other part of head, initial encounter
[2025-02-16 07:22] LABS: Hematocrit (blood only) 25.4 % (37.0-47.0); Hemoglobin 7.3 g/dl (12.0-16.0); Mean Corpuscular Hemoglobin 20.5 pg (25.0-34.0); Mean Corpuscular Volume 71.3 fL (80.0-100.0); Platelet Count 287 K/uL (130-400); RDW Standard Deviation 43.2 fL (36.4-46.3); Red Blood Count 3.56 M/uL (4.20-5.40); White Blood Count 6.08 K/ul (4.8-10.8)
[2025-02-16 07:39] LABS: Anion Gap 5.0 (3-11); Blood Urea Nitrogen 17.0 mg/dl (6-23); Calcium 7.9 mg/dl (8.6-10.3); Carbon Dioxide 25.0 mmol/L (21-32); Chloride 107.0 mmol/L (98-107); Creatinine Clr Calc Pharmacy 56.8 ml/min; Glucose 88.0 mg/dl (70-99(Fasting)); Potassium 3.9 mmol/L (3.5-5.1); Sodium 137.0 mmol/L (136-145)
[2025-02-16 07:48] LABS: Appearance Urine Clear (Clear); Glucose Urine UA Negative (Negative)
[2025-02-16] MEDS ORDERED: ALBUTEROL HFA 8 GM INHALER INH PRN (08:05)
[2025-02-16] MEDS ORDERED: IPRATROPIUM BROMIDE HFA INHALER INH PRN (08:05)
[2025-02-16 08:21] LABS: Hematocrit (blood only) 27.5 % (37.0-47.0); Hemoglobin 8.0 g/dl (12.0-16.0)
[2025-02-16] MEDS: CYANOCOBALAMIN (B-12) 500 MCG TABLET PO SCH (08:46)
[2025-02-16] MEDS: ENOXAPARIN INJ 30 MG/0.3 ML SYR SQ SCH (08:48)
--- NOTE | 2025-02-16 09:17 | Electrocardiogram Report ---
Test Reason : Blood Pressure : */* mmHG Vent. Rate : 78 BPM Atrial Rate : 78 BPM P-R Int : 122 ms QRS Dur : 74 ms QT Int : 378 ms P-R-T Axes : 9 -11 110 degrees QTcB Int : 430 ms Normal sinus rhythm Septal infarct Nonspecific ST abnormality Abnormal ECG When compared with ECG of 04-Nov-2024 18:41, Nonspecific T wave abnormality, improved in Inferior leads Confirmed by Dony Chávez ([id number]) on 02/16/2025 9:17:37 AM Referred By: REFERRED SELF Confirmed By: Dony Chávez
--- NOTE | 2025-02-16 10:41 | Electrocardiogram Report ---
Test Reason : Blood Pressure : */* mmHG Vent. Rate : 76 BPM Atrial Rate : 76 BPM P-R Int : 148 ms QRS Dur : 76 ms QT Int : 404 ms P-R-T Axes : 64 -9 105 degrees QTcB Int : 454 ms Normal sinus rhythm Nonspecific ST and T wave abnormality Abnormal ECG Confirmed by Dony Chávez ([id number]) on 02/16/2025 10:40:26 AM Referred By: REFERRED SELF Confirmed By: Dony Chávez
[2025-02-16 13:57] LABS: Reticulocytes # 0.060 10^6/uL (0.020-0.100)
[2025-02-16] MEDS: ACETAMINOPHEN 325 MG TAB PO PRN (15:08)
[2025-02-16] MEDS: KETOROLAC TROMETHAMINE 15 MG/ML VIAL IV SCH (16:19)
[2025-02-17 02:32] VITALS: RESP 16; TEMP 97.5
--- NOTE | 2025-02-17 05:19 | Ultrasound Report ---
EXAM: US arterial duplex LE BI CLINICAL HISTORY: bilateral severe iliac stenosis TECHNIQUE: Ultrasound examination of the bilateral lower extremities arteries with ankle brachial indices was performed in real time and duplex. One or more of the following were performed- spectral analysis, resistive index, waveform analysis, and pulsed Doppler. COMPARISON: None. FINDINGS: Vessel Flow Pattern Right Peak Velocity Right (cm/sec) Flow Pattern Left Peak Velocity Left (cm/sec) Common Femoral Artery (IN HOME CAREGIVER) Biphasic 119 Monophasic 172 Deep Femoral Artery (DPA) Biphasic 86 Triphasic 75 Superficial Femoral Artery (SFA) Monophasic 136 Monophasic 179 Popliteal Artery (POP A) Monophasic 116 Monophasic 131 Anterior Tibial Artery (ELENITA) Monophasic 95 Monophasic 124 Posterior Tibial Artery (VP ACCOUNT DIRECTOR) Monophasic 88 Monophasic 87 Dorsalis Pedis Artery (DPA) Monophasic 91 Monophasic 85 Bilateral moderately stenotic plaques are noted Increase in the peak systolic velocity reaching 200cm/sec at the left popliteal trifurcation. otherwise, the peak systolic velocities are within normal limit bilaterally. Collateral Circulation: No significant collateral circulation noted indicative of chronic arterial occlusion. IMPRESSION: Duplex ultrasound of the lower extremity arteries: - Bilateral moderately stenotic plaques are noted - Increase in the peak systolic velocity reaching 200cm/sec at the left popliteal trifurcation. Electronically signed by Ronnie Chan 02-17-2025 05:18 AM
[2025-02-17 07:19] VITALS: BP 144/66
--- NOTE | 2025-02-17 07:42 | Hospitalist Progress Note ---
Date of Service February 17, 2025 Assessment & Plan Admission and Anticipated Discharge Date Admission Date: February 15, 2025 Results & Data Results & Data Vital Signs (Past 12 Hours) Vital Signs Temp Pulse Pulse Resp BP Pulse Ox O2 Del Method 02/17/25 07:18 36.4 C L 75 16 144/66 H 92 Nasal Cannula 02/17/25 02:31 36.4 C L 74 16 127/70 95 Nasal Cannula 02/16/25 23:11 75 02/16/25 23:06 37.1 C 77 19 111/61 95 Nasal Cannula 02/16/25 19:45 Nasal Cannula 02/16/25 19:45 37 C 88 14 110/65 91 Nasal Cannula O2 Flow Rate 02/17/25 07:18 02/17/25 02:31 2 02/16/25 23:11 02/16/25 23:06 2 02/16/25 19:45 2 02/16/25 19:45 2 PG Care Time/CCT Total # of Minutes Spent Total Time Spent with Patient: Total time spent is greater than 50% in coordination of care (as documented) at patient's floor/unit and/or counseling patient: Coding
[2025-02-17 12:51] VITALS: PULSE 75
[2025-02-17 14:34] VITALS: O2SAT 97
--- NOTE | 2025-02-17 19:18 | Discharge Summary ---
Discharge Summary Date of Service February 17, 2025 Principal Dx & Hospital Course #1 = Principal Diagnosis (1) Unwitnessed fall: (2) Microcytic hypochromic anemia: (3) Facial hematoma: (4) Left leg cellulitis: (5) Peripheral arterial disease: (6) Symptomatic anemia: (7) Venous insufficiency of both lower extremities: (8) Chronic heart failure with preserved ejection fraction (HFpEF): Plan In summary this is a 74-year-old female admitted after an unwitnessed fall with symptomatic anemia among other acute medical conditions #Unwitnessed fall // Right supraorbital hematoma // Geriatric frailty With respect to the patient's unwitnessed fall, this is most likely consequential of her frailty including generalized muscle atrophy, microcytic hypochromic anemia of which she was symptomatic, left leg cellulitis with superimposed bilateral lower extremity venous insufficiency with associated ambulatory dysfunction requiring a walker for assistance; At the time of discharge there was a prolonged discussion between the patient and myself regarding their disposition. They were strongly advised that based on their recurrent hospitalizations associated with falls, progressive geriatric frailty, anasarca, abby muscle atrophy as consequence of the recurrent hospitalizations at the [facility] consider PT and OT recommendations to be discharged to a snf facility for continued care. The patient adamantly declined. We discussed the benefits that home health can provide but also the areas that it will fall short for the patient's needs, and they expressed understanding with respect to this. Though they exhibit poor insight to their medical conditions they are of a sound cognitive state such that they can make independent medical decisions at this time Management of the patient's anemia is summarized below Normal orthostatic vital signs PT/OT ordered; Recommended snf facility placement but patient declined opting for home health #Symptomatic anemia // Microcytic hypochromic anemia Hemoglobin on 02/16 after transfusion 8.0; MCV 71.3, MCHC 28.7, RDW 16.7; baseline values are similar to this; assessment thus far is most consistent with microcytic hypochromic anemia; an iron panel was ordered by the admitting provider which is relatively unremarkable; the patient is scheduled for colonoscopy in the outpatient setting but has been unable to be fully completed due to inadequate prep, if this was consequential of slow gastrointestinal blood loss, I would suspect that there would be significant iron abnormalities Patient was strongly encouraged to follow through with the previously ordered colonoscopy in the outpatient setting for diagnostic testing #Left lower extremity cellulitis Clinically the patient has a left lower extremity cellulitis; there absence of a leukocytosis is likely consequential of their age and inability to mount such a response Treated with Ancef 2 g IV every 8 hours from 02/15 through 02/17 Transition to Keflex 500 mg p.o. every 6 hours through 01/24 The remainder the patient's chronic medical conditions are stable and do not require adjustment to their outpatient regimen at this time Notes For Next Care Provider Patient identified high risk for 30- day readmission. Our hospitalist team would be glad to discuss any details of the hospital stay with you, please reach out by [facility] [employer] with a good call back number and we will return your call. Patient exhibits very poor insight to their medical conditions and the contributing factors related to their recurrent hospitalizations. They are, at the time of his hospitalization able to exhibit adequate cognitive ability to make independent medical decisions, albeit at their detriment in the opinion of this provider. Admission HPI Per Admitting Provider The patient is a 74-year-old woman with a history of anemia who was brought in by EMS after she fell. She lives at a long-term community. She hit her head during the fall and reports pain over her right eye and forehead, as well as mild pain on the right side of her neck. She doesn't recall tripping on anything and doesn't think she lost consciousness before or after but can't say why she fell. She has had multiple falls in the past and is chronically unsteady on her feet. She sometimes uses a borrowed walker that isn't in good shape. She has chronic intermittent shortness of breath, no cough, and no chest pain, although she sometimes has brief chest pain at rest, few minutes at most. She also has chronic bilateral mid-abdominal pain but no nausea, vomiting, or diarrhea. She doesn't have any issues with urination. Her chronic low back pain has been bothering her more lately, and sometimes when she wakes up, she feels pain radiating down her right leg and buttock, which goes away once she starts moving around. She has chronic swelling in both legs, which has gotten worse recently and started weeping below her knees over the last few days. She says the edema goes up and down. The skin on her left calf is extremely red, tender, and painful. She feels cold all the time but doesn't have a fever or chills. She stopped taking Lasix because it wasn't helping with the swelling. Discharge Exam General: Elderly female in no acute distress Vital Signs: Reviewed HEENT: Periorbital ecchymosis OU, improving from initial presentation; no notable subconjunctival hemorrhage; pupils equally round and reactive to light with extraocular motion intact; patient endorses chronic horizontal diplopia; no appreciable nystagmus; 2 cm x 2 cm hematoma overlying the right superior orbital ridge with tenderness to palpation; no additional noted traumatic injuries, bruising, or abnormal findings Pulmonary: Symmetric chest wall excursion without restriction; clear to auscultation bilaterally Cardiovascular: Regular rate and rhythm without murmurs, rubs, or gallops; S1 and S2 normal; bilateral radial and posterior tibial pulse 2+; trace to 1+ pitting edema of the right lower extremity distal to the mid leg; 1+ pitting edema involving the left leg, not extending into the left foot Neurologic: Cranial nerves II through XII grossly intact; no discernible focal weakness or paresthesia Skin: Circumferential erythema involving the left leg, radiating heat and slightly tender to palpation Discharge Plan Discharge Items Patient Disposition: Home - Home Health Services Reason For Visit: LLE CELLULITIS, HEAD TRAUMA Discharge Diagnosis: Fall with head injury // Left lower extremity cellulitis Condition on Discharge: Fair Activity: Per Instructions section Non-emergency contact: Primary Care Provider Call non-emergency contact if: you have any medication questions, your symptoms worsen and your pain is not controlled Follow-up/Referrals: Bill Stanton DO [Primary Care Provider] - 02/27/25 2:00 pm Diet: Low Fat and Low Sodium (2gm) Fluids: 2000ml (8 cups) Addtl Attending Provider Instructions: You were admitted to [facility] after a an unwitnessed fall with an associated head injury and found to have a left lower extremity cellulitis. With regard to your unwitnessed fall, as we discussed this is most likely consequential of your general frailty and recurrent falls leading to generalized muscle weakness and atrophy as well as initially presenting anemia which required blood transfusion. We do long discussion on the day of your discharge regarding continued physical therapy in order to optimize reducing the risk of future falls; you were ultimately agreeable to home health. We recommend close follow-up with your primary care physician to continue discuss your risk for falls, and reducing the potential for these moving forward. On the day of your presentation your initial hemoglobin was 6.7 requiring blood transfusion; after transfusion you have maintained appropriate hemoglobin measures for the volume that was transfused. An iron panel ordered by the admitting provider was relatively unremarkable. You are scheduled for colonoscopy in the outpatient setting for further diagnostic testing. You were also found to have a left lower extremity cellulitis which was initially treated with Ancef 2 g IV, transition to cephalexin 500 mg p.o. 4 times daily for 7 days. Thank you for choosing [facility] as your healthcare provider. Pending Studies at Discharge: No Stand-Alone Forms: My [facility] Medications and DC Order Prescriptions: New cephalexin 500 mg capsule 500 mg PO Q6H 7 Days Qty: 28 0RF Continued peg 3350-electrolytes [Golytely] 236-22.74-6.74 -5.86 gram recon soln 240 ml PO Q10M Qty: 4000 0RF Rx Instructions: Take per split dose instructions multivitamin [Multiple Vitamins] Tablet 1 tab PO QAM Patient Comments: 02/15- otc unable to verify (DME) compr.stocking,knee,long,small Misc See Rx Instructions .Route Qty: 12 0RF Rx Instructions: As directed (DME) Wheeled Walker Misc See Rx Instructions .Route Qty: 1 0RF Rx Instructions: As directed with a seat ferrous sulfate 325 mg (65 mg iron) tablet 0 mg PO Q OTHER DAY Patient Comments: 02/15- OTC/ last filled 09/17 60 day supply #30 Tums Extra Strength Smoothies 300 mg (750 mg) Tablet,Chewable 600 mg PO BID PRN (Reason: Heartburn) Patient Comments: 02/15- otc unable to verify Discharge Orders: Discharge Order (Routine); Ordered 02/17/25 Ordered By: Osman Bergeron/Other Patient Handouts: Aging and Nutrition Problems, Back Safety: Sitting, Back Safety: Standing, Back Safety: Turning, A Sample Walking Program Admission Data Admit Date/Time: 02/15/25 15:04 Attending Provider: Osman Mathur Admit Provider: Ayala Rodas Primary Care Provider: Bill Stanton Other Providers: Ayala Rodas; [place] Other Interventions: Discharge Summary Assessment (RN) Last Done: 02/17/25 12:45 Hospital Stay Data Consultations 02/15/25 13:27 ED Decision to Admit Stat Diagnostic Imagining Performed 02/15/25 11:14 CT abd pelvis IV con only Stat CT cervical spine wo con Stat CT chest diagnostic w con Stat CT facial bones wo con Stat CT head/brain wo con Stat 02/15/25 14:55 US arterial duplex LE BI Routine Pending Results Patient Have Any Pending Studies at Discharge: No Discharge Instructions Given to Patient (Per Discharging Provider) You were admitted to [facility] after a an unwitnessed fall with an associated head injury and found to have a left lower extremity cellulitis. With regard to your unwitnessed fall, as we discussed this is most likely consequential of your general frailty and recurrent falls leading to generalized muscle weakness and atrophy as well as initially presenting anemia which required blood transfusion. We do long discussion on the day of your discharge regarding continued physical therapy in order to optimize reducing the risk of future falls; you were ultimately agreeable to home health. We recommend close follow-up with your primary care physician to continue discuss your risk for falls, and reducing the potential for these moving forward. On the day of your presentation your initial hemoglobin was 6.7 requiring blood transfusion; after transfusion you have maintained appropriate hemoglobin measures for the volume that was transfused. An iron panel ordered by the admitting provider was relatively unremarkable. You are scheduled for colonoscopy in the outpatient setting for further diagnostic testing. You were also found to have a left lower extremity cellulitis which was initially treated with Ancef 2 g IV, transition to cephalexin 500 mg p.o. 4 times daily for 7 days. Thank you for choosing [facility] as your healthcare provider. Total Time Total Time Spent Total Time Spent (In Minutes): I personally spent 70 minutes in the coordination of today's discharge including primarily bedside counseling, physical exam, medication reconciliation, coordination of disposition with the assistance of case management Coding Level of Care Code 65598 INP/OBS DISCH >30 MIN Diagnoses Unwitnessed fall R29.6 Microcytic hypochromic anemia D50.9 Facial hematoma, initial encounter S00.83XA Encounter type: initial encounter Left leg cellulitis L03.116 Peripheral arterial disease I73.9 Symptomatic anemia D64.9 Venous insufficiency of both lower extremities I87.2 Chronic heart failure with preserved ejection fraction (HFpEF) I50.32 Home Health Attestation I certify that this patient is under my care and that I, or a physicians family assistant working with me, had a face to-face encounter that meets the home health [id number] encounter requirements with this patient. The encounter with the patient was in whole, or in part, for the following medical condition, which is the primary reason for home health care (list medical condition): LLE cellulitis I certify that, based on my findings, the following services are medically necessary home health services: My clinical findings support the need for the above services because: OT Assess ADL Status and Restore Function w ADLs PT Assessment for Endurance / Balance / Strength PT Eval for Safety and Mobility PT Eval for Safety, Gait Training, Assistive Devices PT Gait and Balance Training, Strengthening and Safety Skilled Nsg Assessment Further, I certify that my clinical findings support that this patient is homebound (i.e. absences from home require considerable and taxing effort and are for medical reasons or yazdanism services or infrequently or of short duration when for other reasons) because: Transportation Assistance/Unable to Leave Home Unassisted Certification for Home Health Services: Based on the above findings, I certify that this patient is confined to the home and needs intermittent snf care, physical therapy and/or speech therapy or continues to need occupational therapy. The patient is under my care, and I have initiated the establishment of the plan of care. This patient will be followed by a physician who will periodically review the plan of care.
== END 2025-02-17 14:25 | disposition home health service (06) | DRG 603 ==
LOC: ED 10:35 → SUATTDRO 15:04 → 2S 15:04

== ENCOUNTER 2025-03-05 09:53 | Observation (INO) ==
[2025-03-05] MEDS ORDERED: VANCOMYCIN CONSULT ACTIVE PRN (10:29)
[2025-03-05 10:48] LABS: Appearance Urine Clear (Clear); Glucose Urine UA Negative (Negative)
[2025-03-05 10:55] LABS: Hematocrit (blood only) 30.0 % (37.0-47.0); Hemoglobin 8.9 g/dL (12.0-16.0); Immature Granulocytes # (auto) 0.01 K/uL (0.01-0.20); Immature Granulocytes % (auto) 0.2 %; Mean Corpuscular Hemoglobin 21.3 pg (25.0-34.0); Mean Corpuscular Volume 71.8 fL (80.0-100.0); Platelet Count 345 K/uL (130-400); RDW Standard Deviation 50.2 fL (36.4-46.3); Red Blood Count 4.18 M/uL (4.20-5.40); White Blood Count 6.02 K/ul (4.8-10.8)
[2025-03-05 11:19] LABS: Anisocytosis Present; Ovalocytes 1+; Polychromasia 1+; Schistocytes 1+
--- NOTE | 2025-03-05 11:28 | XRay Report ---
XR chest 1V portable CLINICAL HISTORY: weakness COMPARISON STUDY: Chest radiograph and chest CT February 15, 2025. FINDINGS: Mild elevation of the right hemidiaphragm is unchanged. Linear right basilar density repres ents atelectasis. There is no consolidation to suggest pneumonia. Cardiomediastinal silhouette is sta ble. There is no evidence for pulmonary edema. A small hiatal hernia is again noted. IMPRESSION: No acute cardiopulmonary findings. No significant change in appearance of the chest. ACT 112: Negative or not required by law. Electronically signed by: Miller Napier M.D. 03/05/2025 11:26 AM
--- NOTE | 2025-03-05 11:31 | Emergency Department Note ---
Impression & Plan Ambulatory dysfunction, Left leg cellulitis ED Provider Note Diagnosis: Lower extremity cellulitis, ambulatory dysfunction Disposition: Admission CHIEF COMPLAINT: Weakness HPI: Patient is a 74-year-old female presenting from home with generalized weakness. Patient reportedly was on the phone with healthcare team who was worried about her and they called 911. Per EMS patient's home is not great living conditions and there is stuff throughout. Patient denies any chest pain or shortness of breath. Patient denies any falls. Patient has been having amatory dysfunction using a walker and struggling to get around. Patient states she feels like her legs give out on her. Patient does have redness to the lower extremities bilaterally. Patient states she was recently placed on antibiotics. PAST MEDICAL HISTORY: See Below PAST SURGICAL HISTORY: See Below SOCIAL HISTORY: See Below HOME MEDICATIONS: See Below ALLERGIES: See Below VITALS: See Below PHYSICAL EXAMINATION: GENERAL: Moderate distress EYE EXAM: Normal conjunctiva. OROPHARYNX: Moist mucus membranes. Grossly normal dentition. NECK: Supple, no cervical spine tenderness LUNGS: Clear to auscultation. Normal chest wall mechanics. HEART: NSR ABDOMEN: Abdomen soft, non-tender, normo-active bowel sounds, no masses, no rebound or guarding BACK: No CVA TTP. SKIN: No rashes and no bruising. UPPER EXTREMITIES: Upper extremities are grossly normal LOWER EXTREMITIES: 2+ dorsal pedis pulse bilaterally, cellulitis to the shins bilaterally NEURO EXAM: A&O x3,, normal speech, 5 out of 5 muscle strength upper and lower extremities bilaterally, Intact sensation upper and lower extremities bilaterally PSYCH: Cooperative MEDICAL DECISION MAKING: Reviewed external documents: Discharge 1 month prior History obtained from: Patient ER Course: Patient is a 74-year-old female presenting from home with generalized weakness amatory dysfunction. Patient was on the phone with healthcare providers they are worried about her condition and they called 911 for a wellness check. EMS reports that the home is in poor living conditions. Patient uses a walker at baseline and is almost at 90 degrees when she tries to walk. Patient states she has not been able to get around in the last 1 to 2 days time. Patient denies any falls or trauma. Patient on exam has cellulitis to lower extremities. Patient states she was treated for that recently and was placed on oral antibiotics. EMS believes that patient would not be able to walk to get to those antibiotics. Patient started on vancomycin for lower extremity cellulitis today. Patient admitted to the hospitalist service for further treatment and evaluation. Labs (independently interpreted) are significant for: No significant electrolyte abnormalities Imaging results (independently interpreted): Chest x-ray negative for pneumonia EKG interpretation (independently interpreted): Normal sinus rhythm no ST segment elevation or depression Medications given: Vancomycin Consultants: Hospitalist Triage Nursing notes reviewed and agree them. Vital Signs: reviewed and remarkable for: no significant abnormalities Past Med/Surg History Problem List (Updated 03/05/25 @ 13:28 by Vahe Arshad DO) Anemia Cellulitis of right lower leg Hypertension Ambulatory dysfunction (Acute) using walker for ambulation Venous insufficiency of both lower extremities (Chronic) Microcytic hypochromic anemia (Chronic) Recurrent falls (Chronic) Unwitnessed fall (Acute) Symptomatic anemia Emphysema lung Chronic heart failure with preserved ejection fraction (HFpEF) Peripheral arterial disease Facial hematoma (Acute) Fracture of transverse process of lumbar vertebra (Acute) Vitamin B12 deficiency (Chronic) Vitamin D deficiency (Chronic) Neurogenic claudication due to lumbar spinal stenosis (Chronic) Unwitnessed fall (Acute) Left leg cellulitis (Acute) Arthritis (Chronic) Scoliosis of thoracolumbar region due to degenerative disease of spine in adult (Chronic) Degenerative spondylolisthesis (Chronic) Anxiety and depression (Chronic) Medical History Fracture of L2 vertebra Fracture of L3 vertebra Syncope Fracture of nasal bone with routine healing Orbital floor (blow-out) closed fracture History of meningioma of the brain Memory loss Dyspnea on exertion Acute hypokalemia Generalized weakness Cat bite of left hand Iron deficiency anemia Upper GI bleed Compression fracture of T4 vertebra (~03/03/24) Kidney infection Surgical History History of esophagogastroduodenoscopy (EGD) (08/2024) History of surgery on left wrist (2021) History of tubal ligation History of section (1982) History of tonsillectomy and adenoidectomy Family History Uncle Lung cancer Aunt Breast cancer Other COPD (chronic obstructive pulmonary disease) No family history of adverse response to anesthesia Denies family history of Ovarian cancer Prostate cancer Diabetes Myocardial infarction Colorectal cancer Stroke Social History Smoking Status: Current some day smoker Tobacco Type: Cigarettes Age Started Using Tobacco: 16; packs per day: 0.50 (smoking one cigarette a week); Cigarettes Per Day: "A couple a week"; Second Hand Exposure: No; Do You Dip or Chew Tobacco: No; Hx Alcohol Use: Yes Alcohol type: wine Alcohol Intake Frequency: 2-3 x/Week Hx Substance Use: No Preferred Language: Tamazight Communication Ability: Effective Visual Impairment: No Limitations Hearing Ability: Normal Research Tech Required: No Beliefs That Will Affect Care: None marital status: / Current Living Situation: Alone Current Living Situation Comment: Independent Living @ [facility], [place] current occupational status: retired Feels Safe at Home: Hesitant to Answer Safety Concerns Comment: does not feel safe at her building due safety risks/fell on the ice Childhood Exposure to Second-Hand Smoke: No Diet: low salt and regular caffeine: No Dental Care, Regularly: No Physical Activity Frequency: Does not Exercise Seatbelt Use: always Sunscreen Use: No Assistive Devices: Walker Allergies Allergies Allergy/AdvReac Type Severity Reaction Status Date / Time Sulfa (Sulfonamide Allergy Intermediate BUMPS ON Verified 02/21/25 14:09 Antibiotics) TONGUE hydrocodone AdvReac Intermediate Vomiting Verified 02/21/25 14:09 Home Meds Home Medications Medication Instructions Recorded Confirmed multivitamin (Multiple Vitamins 1 tab PO QAM 04/01/22 03/05/25 tablet) calcium carbonate (Tums Extra 600 mg PO BID PRN Heartburn 11/04/24 03/05/25 Strength Smoothies) Previous Rx's Medication Instructions Recorded compr.stocking,knee,long,small #12 ea 04/01/22 Wheeled Walker #1 ea 03/11/24 ferrous sulfate 325 mg (65 mg 325 mg PO Q OTHER DAY #60 tabs 02/21/25 iron) tablet pantoprazole 40 mg tablet,delayed 40 mg PO BID 90 days #180 tabs 02/21/25 release (Protonix) peg 3350-electrolytes 236 240 ml PO Q10M #4,000 mL 02/26/25 gram-22.74 gram-6.74 gram-5.86 gram solution (Golytely) Results & Data (ED) Vital Signs Vital Signs - 24 hr 03/05/25 10:00 03/05/25 10:09 03/05/25 10:35 Temperature 36.4 C L Temperature Source Oral Pulse Rate 76 76 Pulse Rate [Apical] 76 Pulse Rhythm Regular Regular Pulse Rhythm [Apical] Regular Pulse Strength [Apical] Normal Respiratory Rate 20 20 20 Respiratory Effort / Characteristics Non-Labored Spontaneous Non-Labored Spontaneous Respiratory Depth Normal Normal Respiratory Pattern Regular Regular Blood Pressure 149/80 H Blood Pressure [Right Arm] 149/80 H Blood Pressure Mean 103 Blood Pressure Mean [Right Arm] 103 Blood Pressure Position [Right Arm] Semi-fowlers Pulse Oximetry 95 95 94 Oxygen Delivery Method Room Air Room Air Room Air Sepsis Recent Fever Within 48 Hours No Sepsis New/Unexplained Change in Mental Status No Sepsis Action Taken by Nursing No Action Required 03/05/25 12:00 03/05/25 12:15 Temperature Temperature Source Pulse Rate 80 Pulse Rate [Apical] 79 Pulse Rhythm Pulse Rhythm [Apical] Pulse Strength [Apical] Respiratory Rate 20 Respiratory Effort / Characteristics Non-Labored Spontaneous Respiratory Depth Normal Respiratory Pattern Regular Blood Pressure Blood Pressure [Right Arm] 147/73 H Blood Pressure Mean Blood Pressure Mean [Right Arm] 97 Blood Pressure Position [Right Arm] Pulse Oximetry 100 Oxygen Delivery Method Room Air Sepsis Recent Fever Within 48 Hours Sepsis New/Unexplained Change in Mental Status Sepsis Action Taken by Nursing Laboratory Data 03/05/25 10:10 03/05/25 11:08 Lab Results 03/05/25 03/05/25 03/05/25 Range/Units 10:10 10:30 11:08 WBC 6.02 (4.8-10.8) K/ul RBC 4.18 L (4.20-5.40) M/uL Hgb 8.9 L (12.0-16.0) g/dL Hct 30.0 L (37.0-47.0) % MCV 71.8 L (80.0-100.0) fL MCH 21.3 L (25.0-34.0) pg MCHC 29.7 L (32.0-36.0) g/dL RDW Std Deviation 50.2 H (36.4-46.3) fL RDW Coeff of Dunia 20.6 H (11.5-14.5) % Plt Count 345 (130-400) K/uL MPV 9.3 L (9.4-12.4) fL Immature Gran % (Auto) 0.2 % Neut % (Auto) 62.4 % Lymph % (Auto) 23.6 % Fergus % (Auto) 8.1 % Eos % (Auto) 4.7 % Baso % (Auto) 1.0 % Neut # (Auto) 3.76 (1.40-6.50) K/uL Lymph # (Auto) 1.42 (1.20-3.40) K/uL Fergus # (Auto) 0.49 (0.11-0.59) K/uL Eos # (Auto) 0.28 (0.00-0.50) K/uL Baso # (Auto) 0.06 (0.00-0.20) K/uL Immature Gran # (Auto) 0.01 (0.01-0.20) K/uL Polychromasia 1+ Anisocytosis Present Ovalocytes 1+ Schistocytes 1+ Sodium 142 (136-145) mmol/L Potassium 3.6 (3.5-5.1) mmol/L Chloride 109 H (98-107) mmol/L Carbon Dioxide 27 (21-32) mmol/L Anion Gap 6 (3-11) BUN 20 (6-23) mg/dl Creatinine 0.63 (0.6-1.2) mg/dl Est Cr Clr Drug Dosing 59.6 ml/min eGFR 91.88 BUN/Creatinine Ratio 31.7 H (10-20) Glucose 78 (70-99(Fasting)) mg/dl Lactate 0.7 (0.4-2.0) mmol/L Calcium 8.7 (8.6-10.3) mg/dl Total Bilirubin 0.3 (0.2-1.0) mg/dl AST 22 (13-39) U/L ALT 15 (7-52) U/L Alkaline Phosphatase 69 (34-104) U/L Troponin I High Sens 9.1 (0-14) pg/ml B-Natriuretic Peptide 166 H (0-100) pg/ml Total Protein 6.3 (6.0-8.3) gm/dl Albumin 3.6 (3.4-5.0) gm/dl Globulin 2.7 (2.5-4.0) gm/dl Albumin/Globulin Ratio 1.3 (0.9-2) TSH 0.810 (0.300-4.500) uIu/ml Urine Color Yellow Urine Appearance Clear (Clear) Urine pH 7.5 (4.5-7.5) Ur Specific [place] 1.011 (1.000-1.030) Urine Protein Negative (Negative) Urine Glucose (UA) Negative (Negative) Urine Ketones Negative (Negative) Urine Blood Negative (Negative) Urine Nitrite Negative (Negative) Urine Bilirubin Negative (Negative) Urine Urobilinogen Negative (Negative) Ur Leukocyte Esterase Negative (Negative) Urine Comment Administered Medications Discontinued Medications Sodium Chloride (Nss) 500 mls @ 999 mls/hr IV .Q31M NEHEMIAS Stop: 03/05/25 11:00 Last Admin: 03/05/25 11:43 Dose: 999 mls/hr Documented By: JOSELO Vancomycin HCl 1,000 mg/ (Sodium Chloride) 520 mls @ 200 mls/hr IV NOW ONE Stop: 03/05/25 13:04 Last Admin: 03/05/25 11:43 Dose: 200 mls/hr Documented By: JOSELO Imaging Data Radiologist's Impression: Chest X-Ray 03/05/25 10:30 XR chest 1V portable CLINICAL HISTORY: weakness COMPARISON STUDY: Chest radiograph and chest CT February 15, 2025. FINDINGS: Mild elevation of the right hemidiaphragm is unchanged. Linear right basilar density represents atelectasis. There is no consolidation to suggest pneumonia. Cardiomediastinal silhouette is stable. There is no evidence for pulmonary edema. A small hiatal hernia is again noted. IMPRESSION: No acute cardiopulmonary findings. No significant change in appearance of the chest. ACT 112: Negative or not required by law. Electronically signed by: Miller Napier M.D. 03/05/2025 11:26 AM Discharge Plan Visit Data Chief Complaint: Leg Weakness, Bilateral Stated Complaint: back/leg pain ED Provider: Vahe Arshad Discharge Problem: Ambulatory dysfunction, Left leg cellulitis Condition: Serious Forms Stand Alone Forms: My [facility] Prescriptions Prescriptions: No Action peg 3350-electrolytes [Golytely] 236-22.74-6.74 -5.86 gram recon soln 240 ml PO Q10M Qty: 4000 0RF Rx Instructions: Take per split dose instructions multivitamin [Multiple Vitamins] Tablet 1 tab PO QAM Patient Comments: 02/15- otc unable to verify (DME) compr.stocking,knee,long,small Misc See Rx Instructions .Route Qty: 12 0RF Rx Instructions: As directed pantoprazole [Protonix] 40 mg tablet,delayed release (DR/EC) 40 mg PO BID 90 Days Qty: 180 2RF ferrous sulfate 325 mg (65 mg iron) tablet 325 mg PO Q OTHER DAY Qty: 60 3RF (DME) Wheeled Walker Misc See Rx Instructions .Route Qty: 1 0RF Rx Instructions: As directed with a seat Tums Extra Strength Smoothies 300 mg (750 mg) Tablet,Chewable 600 mg PO BID PRN (Reason: Heartburn) Patient Comments: 02/15- otc unable to verify Referrals Referrals: Bill Stanton DO [Primary Care Provider] -
[2025-03-05] MEDS: SODIUM CHLORIDE 0.9% 500 ML IV SCH (11:43)
[2025-03-05] MEDS: VANCOMYCIN HCL 1,000 MG in SODIUM CHLORIDE 0.9% 500 ML IV ONE (11:43)
[2025-03-05 12:10] LABS: Albumin Level 3.6 gm/dl (3.4-5.0); Anion Gap 6.0 (3-11); Bilirubin,Total 0.3 mg/dl (0.2-1.0); Calcium 8.7 mg/dl (8.6-10.3); Carbon Dioxide 27.0 mmol/L (21-32); Chloride 109.0 mmol/L (98-107); Potassium 3.6 mmol/L (3.5-5.1); Sodium 142.0 mmol/L (136-145)
[2025-03-05 12:16] LABS: Alanine Aminotransferase 15.0 U/L (7-52); Albumin Globulin Ratio 1.3 (0.9-2); Alkaline Phosphatase 69.0 U/L (34-104); Blood Urea Nitrogen 20.0 mg/dl (6-23); Creatinine Clr Calc Pharmacy 59.6 ml/min; Globulin 2.7 gm/dl (2.5-4.0); Glucose 78.0 mg/dl (70-99(Fasting)); Total Protein 6.3 gm/dl (6.0-8.3)
[2025-03-05 12:41] LABS: Thyroid Stimulating Hormone 0.81 uIu/ml (0.300-4.500)
[2025-03-05] MEDS ORDERED: MELATONIN 3 MG TAB PO PRN (12:51)
[2025-03-05] MEDS ORDERED: ONDANSETRON INJ 2 MG/ML 2 ML VIAL IV PRN (12:51)
[2025-03-05] MEDS ORDERED: POLYETHYLENE (MIRALAX) 17 GM PACK PO PRN (12:51)
--- NOTE | 2025-03-05 12:54 | History & Physical Report ---
Date of Service March 05, 2025 Assessment & Plan (1) Cellulitis of right lower leg: (2) Left leg cellulitis: (3) Ambulatory dysfunction: (4) Chronic heart failure with preserved ejection fraction (HFpEF): (5) Emphysema lung: (6) Anemia: Plan This is a 74 year old female with past medical history of anxiety/depression, CHF, emphysema, ambulatory dysfunction who presented to the ED via EMS on 03/05/2025 for cellulitis. While in the ED, she was found to have ongoing cellulitis of b/l LE. Her CBC was w/o leukocytosis, hgb was within range for her at 8.9, renal function/electrolytes stable. LFTs WNL. Trop neg, BNP mildly elevated at 166 but does not appear volume overloaded on exam. TSH WNL. UA negative. CXR negative. Blood cultures are pending. She was given IV Vancomycin. #Bilateral lower extremity cellulitis s/p recent course of Keflex outpatient w/ no improvement. Does have hx of pseudomonal cellulitis of hand. CBC w/o leukocytosis. LFTs WNL. Renal function & electrolytes stable. Trop neg; BNP mildly elevated. TSH WNL. UA negative; CXR negative. BC pending s/p IV Vanco --> can continue upon admission, obtain MRSA swab Start IV Cefepime given hx of pseudomonas. Obtain b/l LE Doppler to rule out DVT. #Ambulatory dysfunction w/ ongoing recurrent falls @ home, has refused rehab in past. Per EMS apartment is not in great living conditions. Patient reports it is hard to keep up w/ cleanliness of apartment secondary to chronic pain. PT/OT consulted, appreciate consultations. CM to discuss possible placement options. #Anemia hgb within baseline at 8.9 on admission. (8-10) continue PO iron every other day. #CHF does not appear volume overloaded on exam no home medications Last echo 11/07/24 --> EF 55-60% w/ mild MR #Emphysema on no home inhalers has cut down on cigarette use, continue encouraging smoking cessation. #GERD - PPI DVT prophylaxis: Lovenox Code: DNR/DNI Case was discussed with Dr. Hunt at time of admission. History of Present Illness Primary Care Provider: Bill Stanton DO This is a 74 year old female with past medical history of anxiety/depression, CHF, emphysema, ambulatory dysfunction who presented to the ED via EMS on 03/05/2025 for cellulitis. Berta was seen & examined this afternoon. She reports that for the last week she has not been feeling well. She reports pain in her full body. She states that she was speaking to someone from her insurance company on the phone yesterday who recommended she go to the hospital. She reports she told the insurance company that she would plan to come after she got some chores done around the house and took care of her cat. She states that took her several hours yesterday & this morning she woke up to police knocking on her door. She denies any fevers or chills. She denies any CP or SOB. She reports LE pain in B/l, worse in the L than R leg. She states that she did take the full dose of antibiotics after her most recent hospitalization on 02/15 thru 02/17 for LLE cellulitis where she was given Keflex. She states she did see her PCP in follow up and was given an additional 7 days of the antibiotic but she reports not being able to recall if she picked it up from the pharmacy. She does mention she uses cigarettes but has decreased the amount she has been smoking lately. While in the ED, she was found to have ongoing cellulitis of b/l LE. Her CBC was w/o leukocytosis, hgb was within range for her at 8.9, renal function/electrolytes stable. LFTs WNL. Trop neg, BNP mildly elevated at 166 but does not appear volume overloaded on exam. TSH WNL. UA negative. CXR negative. Blood cultures are pending. She was given IV Vancomycin. Code discussion did take place and she does confirm that she is a DNR/DNI. Allergies Allergy/AdvReac Type Severity Reaction Status Date / Time Sulfa (Sulfonamide Allergy Intermediate BUMPS ON Verified 02/21/25 14:09 Antibiotics) TONGUE hydrocodone AdvReac Intermediate Vomiting Verified 02/21/25 14:09 Home Medications Medication Instructions Recorded Confirmed Type compr.stocking,knee,long,small #12 ea 04/01/22 02/21/25 Rx multivitamin (Multiple Vitamins 1 tab PO QAM 04/01/22 03/05/25 History tablet) Wheeled Walker #1 ea 03/11/24 02/21/25 Rx calcium carbonate (Tums Extra 600 mg PO BID PRN Heartburn 11/04/24 03/05/25 History Strength Smoothies) ferrous sulfate 325 mg (65 mg 325 mg PO Q OTHER DAY #60 tabs 02/21/25 03/05/25 Rx iron) tablet pantoprazole 40 mg tablet,delayed 40 mg PO BID 90 days #180 tabs 02/21/25 03/05/25 Rx release (Protonix) peg 3350-electrolytes 236 240 ml PO Q10M #4,000 mL 02/26/25 03/05/25 Rx gram-22.74 gram-6.74 gram-5.86 gram solution (Golytely) Past Med/Surg History Problem List (Updated 03/05/25 @ 13:28 by Vahe Arshad DO) Anemia Cellulitis of right lower leg Hypertension Ambulatory dysfunction (Acute) using walker for ambulation Venous insufficiency of both lower extremities (Chronic) Microcytic hypochromic anemia (Chronic) Recurrent falls (Chronic) Unwitnessed fall (Acute) Symptomatic anemia Emphysema lung Chronic heart failure with preserved ejection fraction (HFpEF) Peripheral arterial disease Facial hematoma (Acute) Fracture of transverse process of lumbar vertebra (Acute) Vitamin B12 deficiency (Chronic) Vitamin D deficiency (Chronic) Neurogenic claudication due to lumbar spinal stenosis (Chronic) Unwitnessed fall (Acute) Left leg cellulitis (Acute) Arthritis (Chronic) Scoliosis of thoracolumbar region due to degenerative disease of spine in adult (Chronic) Degenerative spondylolisthesis (Chronic) Anxiety and depression (Chronic) Medical History Fracture of L2 vertebra Fracture of L3 vertebra Syncope Fracture of nasal bone with routine healing Orbital floor (blow-out) closed fracture History of meningioma of the brain Memory loss Dyspnea on exertion Acute hypokalemia Generalized weakness Cat bite of left hand Iron deficiency anemia Upper GI bleed Compression fracture of T4 vertebra (~03/03/24) Kidney infection Surgical History History of esophagogastroduodenoscopy (EGD) (08/2024) History of surgery on left wrist (2021) History of tubal ligation History of section (1982) History of tonsillectomy and adenoidectomy Family History Uncle Lung cancer Aunt Breast cancer Other COPD (chronic obstructive pulmonary disease) No family history of adverse response to anesthesia Denies family history of Ovarian cancer Prostate cancer Diabetes Myocardial infarction Colorectal cancer Stroke Social History Smoking Status: Current some day smoker Tobacco Type: Cigarettes Age Started Using Tobacco: 16; packs per day: 0.50 (smoking one cigarette a week); Cigarettes Per Day: "A couple a week"; Second Hand Exposure: No; Do You Dip or Chew Tobacco: No; Hx Alcohol Use: Yes Alcohol type: wine Alcohol Intake Frequency: 2-3 x/Week Hx Substance Use: No Preferred Language: Bolivian Communication Ability: Effective Visual Impairment: No Limitations Hearing Ability: Normal Preformer [employer] Required: No Beliefs That Will Affect Care: None marital status: / Current Living Situation: Alone Current Living Situation Comment: Independent Living @ [facility] current occupational status: retired Feels Safe at Home: Hesitant to Answer Safety Concerns Comment: does not feel safe at her building due safety risks/fell on the ice Childhood Exposure to Second-Hand Smoke: No Diet: low salt and regular caffeine: No Dental Care, Regularly: No Physical Activity Frequency: Does not Exercise Seatbelt Use: always Sunscreen Use: No Assistive Devices: Walker Physical Exam Physical Exam: General: NAD, VS: BP 147/73; P80; R20; T36.4C Resp: normal respiratory effort, lungs clear to auscultation CV: RRR, no murmur, Abd: normal bowel sounds, non tender, soft Extremities: Moves all extremities, no b/l edema observed. + erythema on b/l LE w/ pain and warmth on palpation. Neuro: A&O x3, strength intact Skin: intact, no lesions noted Results & Data Results & Data Vital Signs (Past 12 Hours) Vital Signs Temp Pulse Pulse Resp BP BP Pulse Ox 03/05/25 12:15 80 03/05/25 12:00 79 20 147/73 H 100 03/05/25 10:35 76 20 94 03/05/25 10:09 36.4 C L 76 20 149/80 H 95 03/05/25 10:00 76 20 149/80 H 95 O2 Del Method 03/05/25 12:15 03/05/25 12:00 Room Air 03/05/25 10:35 Room Air 03/05/25 10:09 Room Air 03/05/25 10:00 Room Air Code Status & VTE Plan VTE Prophylaxis Plan VTE Prophylaxis will be ordered: Yes Supervising Physician Co-Signing Physician Notes The patient was seen by me. The chart was reviewed. Case discussed with RENETTA Stover. Agree with assessment and plan PG Care Time/CCT Total # of Minutes Spent Total Time Spent with Patient: Total time spent is greater than 50% in coordination of care (as documented) at patient's floor/unit and/or counseling patient: Coding Level of Care Code 64627 INT INP/OBS CARE 375MIN Diagnoses Cellulitis of right lower leg L03.115 Left leg cellulitis L03.116 Ambulatory dysfunction R26.2 Chronic heart failure with preserved ejection fraction (HFpEF) I50.32 Emphysema lung J43.9 Anemia D64.9
--- NOTE | 2025-03-05 14:23 | Ultrasound Report ---
BILATERAL LOWER EXTREMITY VENOUS DOPPLER CLINICAL HISTORY: Lower extremity pain and erythema. COMPARISON STUDY: No previous studies for comparison. TECHNIQUE: Sonography of the deep venous system of the bilateral lower extremities was performed. Co mpression and augmentation were evaluated. FINDINGS: The bilateral common femoral, superficial femoral and popliteal veins were compressible. A ugmentation was normal. Flow was shown within the deep calf vessels. Bilateral lower extremity edema is noted. Prominent left inguinal lymph nodes are likely benign. IMPRESSION: No evidence of deep venous thrombus within the bilateral lower extremities. ACT 112: Negative or not required by law. Electronically signed by: Miller Napier M.D. 03/05/2025 2:22 PM
[2025-03-05] MEDS: CEFEPIME 2000MG 2,000 MG/20 ML SYR IV STA (14:38)
--- NOTE | 2025-03-05 15:44 | Pharmacy Report ---
Pharmacy PK ABX Note - Date of Service March 05, 2025 - Assessment and Plan Assessment 74 year old F receiving vancomycin/cefepime for treatment of b/l cellulitis. Pertinent microbiologic data includes: Blood cultures pending. MRSA nasal swab also ordered/pending. Normal white count, afebrile. Recent course of cephalexin without improvment. Hx of Pseudomonas. Plan Vancomycin * Loading dose: 1000 mg IV x 1 * Maintenance dose: 750 mg IV every 12 hours * Regimen is predicted to achieve target AUC/MADDY of 400-600 mg/L.hr * Random level ordered for 03/07 with AM labs Pharmacy will continue to follow and will adjust dose/frequency as necessary. Thank you. Pharmacy has transitioned to AUC monitoring for vancomycin. AUC/MADDY is the preferred PK/PD target and is associated with decreased risk of nephrotoxicity compared to traditional trough targets.
[2025-03-05] MEDS: FERROUS SULFATE 325 MG TAB PO SCH (18:29)
[2025-03-05] MEDS: VANCOMYCIN 750 MG in SODIUM CHLORIDE 0.9% 250 ML IV SCH (20:55)
[2025-03-05] MEDS: ENOXAPARIN INJ 40 MG/0.4 ML SYR SQ SCH (20:58)
[2025-03-06] MEDS: CEFEPIME 2000MG 2,000 MG/20 ML SYR IV SCH (01:52)
[2025-03-06 06:17] LABS: Hematocrit (blood only) 26.9 % (37.0-47.0); Hemoglobin 7.8 g/dL (12.0-16.0); Mean Corpuscular Hemoglobin 20.7 pg (25.0-34.0); Mean Corpuscular Volume 71.5 fL (80.0-100.0); Platelet Count 283 K/uL (130-400); RDW Standard Deviation 50.9 fL (36.4-46.3); Red Blood Count 3.76 M/uL (4.20-5.40); White Blood Count 5.74 K/ul (4.8-10.8)
[2025-03-06 06:36] LABS: Anion Gap 5.0 (3-11); Blood Urea Nitrogen 22.0 mg/dl (6-23); Calcium 8.2 mg/dl (8.6-10.3); Carbon Dioxide 24.0 mmol/L (21-32); Chloride 111.0 mmol/L (98-107); Creatinine Clr Calc Pharmacy 46.4 ml/min; Glucose 90.0 mg/dl (70-99(Fasting)); Potassium 3.9 mmol/L (3.5-5.1); Sodium 140.0 mmol/L (136-145)
[2025-03-06] MEDS: MULTIVITAMIN TAB PO SCH (09:30)
--- NOTE | 2025-03-06 11:51 | Hospitalist Progress Note ---
Date of Service March 06, 2025 Assessment & Plan (1) Cellulitis of right lower leg: (2) Left leg cellulitis: (3) Ambulatory dysfunction: (4) Chronic heart failure with preserved ejection fraction (HFpEF): (5) Emphysema lung: (6) Anemia: Plan This is a 74 year old female with past medical history of anxiety/depression, CHF, emphysema, ambulatory dysfunction who presented to the ED via EMS on 03/05/2025 for cellulitis. #Bilateral lower extremity cellulitis s/p recent course of Keflex outpatient w/ no improvement. Does have hx of pseudomonal cellulitis of hand. CBC w/o leukocytosis. LFTs WNL. Renal function & electrolytes stable. Trop neg; BNP mildly elevated. TSH WNL. UA negative; CXR negative; b/l LE doppler negative. BC negative at 24 hours. MRSA swab negative, discontinue vancomycin. Continue IV Cefepime given hx of pseudomonas. #Ambulatory dysfunction w/ ongoing recurrent falls @ home, has refused rehab in past. Per EMS apartment is not in great living conditions. Patient reports it is hard to keep up w/ cleanliness of apartment secondary to chronic pain. PT/OT consulted--> recommending rehab on discharge. CM following, referral to home health made. #Anemia Baseline hgb 8-10. Hgb dropped to 7.8 on 03/06 (prev. 8.9) continue PO iron every other day. Order B12, Folate, iron panel. #CHF does not appear volume overloaded on exam no home medications Last echo 11/07/24 --> EF 55-60% w/ mild MR #Emphysema on no home inhalers has cut down on cigarette use, continue encouraging smoking cessation. #GERD - PPI DVT prophylaxis: Lovenox Code: DNR/DNI Admission and Anticipated Discharge Date Admission Date: March 05, 2025 Supervising Physician Co-Signing Physician Notes The patient was not seen by me. The chart was reviewed. Case discussed with RENETTA Stover. Agree with assessment and plan Subjective Berta was seen & examined this morning. States she is feeling okay today but is upset that she was taken to the hospital yesterday. Reports of wanting to go home today to be with her cat. Discussed that we are still treating her infection and it is not safe yet for her to return home. She verbalized her understanding. Physical Exam Physical Exam: General: NAD, VS: BP 130/70; P73; R18; T36.5C Lungs: clear to auscultation. Extremities: Moves all extremities, no edema, b/l LE redness, improved from 03/05. Neuro: A&O x3, Skin: intact, no lesions noted Results & Data Results & Data Vital Signs (Past 12 Hours) Vital Signs Temp Pulse Resp BP Pulse Ox O2 Del Method 03/06/25 09:35 Room Air 03/06/25 08:02 36.5 C 73 18 130/70 92 Room Air 03/06/25 00:52 88 94 Room Air PG Care Time/CCT Total # of Minutes Spent Total Time Spent with Patient: Total time spent is greater than 50% in coordination of care (as documented) at patient's floor/unit and/or counseling patient: Coding Level of Care Code 88275 SUB INP/OBS CARE 235MIN Diagnoses Cellulitis of right lower leg L03.115 Left leg cellulitis L03.116 Ambulatory dysfunction R26.2 Chronic heart failure with preserved ejection fraction (HFpEF) I50.32 Emphysema lung J43.9 Anemia D64.9
[2025-03-06] MEDS: ACETAMINOPHEN 325 MG TAB PO PRN (21:05)
[2025-03-06 21:42] VITALS: TEMP 97.9
[2025-03-07 06:42] LABS: Hematocrit (blood only) 26.8 % (37.0-47.0); Hemoglobin 8.0 g/dL (12.0-16.0); Mean Corpuscular Hemoglobin 21.2 pg (25.0-34.0); Mean Corpuscular Volume 71.1 fL (80.0-100.0); Platelet Count 296 K/uL (130-400); RDW Standard Deviation 52.5 fL (36.4-46.3); Red Blood Count 3.77 M/uL (4.20-5.40); White Blood Count 7.24 K/ul (4.8-10.8)
[2025-03-07 07:09] LABS: Anion Gap 5.0 (3-11); Blood Urea Nitrogen 31.0 mg/dl (6-23); Calcium 8.3 mg/dl (8.6-10.3); Carbon Dioxide 25.0 mmol/L (21-32); Chloride 108.0 mmol/L (98-107); Creatinine Clr Calc Pharmacy 34.1 ml/min; Glucose 100.0 mg/dl (70-99(Fasting)); Iron 11.0 mcg/dl (35-150); Potassium 4.0 mmol/L (3.5-5.1); Sodium 138.0 mmol/L (136-145); Total Iron Binding Cap Calc 335.0 mcg/dl (250-450); Transferrin 239.0 mg/dl (200-360); Transferrin (FE) Percent Satur 3.0 % (15-50)
[2025-03-07] MEDS ORDERED: VANCOMYCIN LEVEL ONE (07:30)
[2025-03-07 07:34] LABS: Folate (Folic Acid),Ser orPlas 8.53 ng/ml (>5.38)
[2025-03-07 07:35] LABS: Vitamin B12 218.0 pg/ml (180-914)
[2025-03-07] MEDS: IRON SUCROSE 300 MG in SODIUM CHLORIDE 0.9% 250 ML IV ONE (08:35)
--- NOTE | 2025-03-07 09:18 | Electrocardiogram Report ---
Test Reason : Blood Pressure : */* mmHG Vent. Rate : 76 BPM Atrial Rate : 76 BPM P-R Int : 152 ms QRS Dur : 72 ms QT Int : 378 ms P-R-T Axes : 50 -18 148 degrees QTcB Int : 425 ms Poor data quality, interpretation may be adversely affected Normal sinus rhythm Anterior infarct , age undetermined Abnormal ECG When compared with ECG of 16-Feb-2025 09:13, No significant change was found Confirmed by Aquilino Chambers ([id number]) on 03/07/2025 9:17:37 AM Referred By: REFERRED SELF Confirmed By: Aquilino Chambers
--- NOTE | 2025-03-07 09:31 | Discharge Summary ---
Discharge Summary Date of Service March 07, 2025 Principal Dx & Hospital Course #1 = Principal Diagnosis (1) Cellulitis of right lower leg: (2) Left leg cellulitis: (3) Ambulatory dysfunction: (4) Chronic heart failure with preserved ejection fraction (HFpEF): (5) Emphysema lung: (6) Anemia: Plan This is a 74 year old female with past medical history of anxiety/depression, CHF, emphysema, ambulatory dysfunction who presented to the ED via EMS on 03/05/2025 for cellulitis. #Bilateral lower extremity cellulitis - improving s/p recent course of Keflex outpatient w/ no improvement. CBC w/o leukocytosis. LFTs WNL. Renal function & electrolytes stable. Trop neg; BNP mildly elevated. TSH WNL. UA negative; CXR negative; b/l LE doppler negative; BC negative at 24 hours. Reviewed pt chart for past hx of cellulitis from 09/2024 where she was treated with Doxy + Keflex w/ wound culture + for pseudomonas --> recommend home on Doxy BID x 5 additional days. Encouraged patient to pecan picker from pharmacy [facility] as last hospitalization she waited ~ 5 days to pecan picker per PCP note. #Ambulatory dysfunction w/ ongoing recurrent falls @ home, has refused rehab in past. Per EMS apartment is not in great living conditions. Patient reports it is hard to keep up w/ cleanliness of apartment secondary to chronic pain. PT/OT consulted--> recommending rehab on discharge. Pt continues to refuse but is agreeable to home health at this time. CM had referral placed. #Anemia Baseline hgb 8-10. Hgb now stable at 8 (prev. 8.9) Iron panel w/ low FE of 11, % sat 3. 1x dose of IV Venofer prior to dc. B12/Folate WNL. continue PO iron every other day on discharge. #CHF does not appear volume overloaded on exam no home medications Last echo 11/07/24 --> EF 55-60% w/ mild MR #Emphysema on no home inhalers has cut down on cigarette use, continue encouraging smoking cessation. #GERD - PPI Pt discharged home 03/07, referral to home health made on discharge. Admission HPI Per Admitting Provider This is a 74 year old female with past medical history of anxiety/depression, CHF, emphysema, ambulatory dysfunction who presented to the ED via EMS on 03/05/2025 for cellulitis. Berta was seen & examined this afternoon. She reports that for the last week she has not been feeling well. She reports pain in her full body. She states that she was speaking to someone from her insurance company on the phone yesterday who recommended she go to the hospital. She reports she told the insurance company that she would plan to come after she got some chores done around the house and took care of her cat. She states that took her several hours yesterday & this morning she woke up to police knocking on her door. She denies any fevers or chills. She denies any CP or SOB. She reports LE pain in B/l, worse in the L than R leg. She states that she did take the full dose of antibiotics after her most recent hospitalization on 02/15 thru 02/17 for LLE cellulitis where she was given Keflex. She states she did see her PCP in follow up and was given an additional 7 days of the antibiotic but she reports not being able to recall if she picked it up from the pharmacy. She does mention she uses cigarettes but has decreased the amount she has been smoking lately. While in the ED, she was found to have ongoing cellulitis of b/l LE. Her CBC was w/o leukocytosis, hgb was within range for her at 8.9, renal function/electrolytes stable. LFTs WNL. Trop neg, BNP mildly elevated at 166 but does not appear volume overloaded on exam. TSH WNL. UA negative. CXR negative. Blood cultures are pending. She was given IV Vancomycin. Code discussion did take place and she does confirm that she is a DNR/DNI. Discharge Exam General: NAD, VS: BP 118/80; P76; R21; T36.6C Resp: normal respiratory effort Extremities: Moves all extremities, no edema, b/l LE erythema/warmth - improved from previous day Neuro: A&O x3 Skin: intact, no lesions noted Discharge Plan Discharge Items Patient Disposition: Home - Self-Care Reason For Visit: CELLULITIS Discharge Diagnosis: Cellulitis Condition on Discharge: Serious Activity: Resume your previous activity Non-emergency contact: Primary Care Provider Call non-emergency contact if: you have any medication questions, your symptoms worsen and you have a fever Follow-up/Referrals: Bill Stanton, [Primary Care Provider] - 11/17/25 4:30 pm (appointment is with Arlin Cazares PA-C.) Diet: Regular Addtl Attending Provider Instructions: Ms. Foy, You were recently hospitalized for cellulitis of your lower extremities. You were treated with IV antibiotics with improvement. Medications: Your medication list has been reviewed and reconciled upon discharge to ensure accuracy and continuity of care. An updated list of all your medications is included with your hospital discharge paperwork. Please review this list closely, and make note of any changes. Please take Doxycycline twice daily for 5 days for ongoing treatment of your cellulitis. Please take with food to avoid GI upset. Your first dose will be this evening, 03/07. Take your medications as instructed; do not skip a dose of your medicines. Make sure all of your doctors know every medicine you are taking (including mdjh-pru-jiuwacv medicines, vitamins, and supplements). Call your primary care provider before taking any new medicines (including over- the-counter medicines, vitamins, and supplements), because some of these may interact with your current medications, or may make your symptoms worse. Tell your primary care provider if you cannot afford your medications. Activity: You can do normal everyday activities as your body allows. Take rest breaks if you feel tired. Do not overexert. Stop activity if you have pain, shortness of breath or feel dizzy. Follow-up appointments: Make an appointment with your primary care physician within one week of discharge. A copy of this summary will be sent to them. Every time you see your primary care physician, or any other doctor, bring your medication list, and a list of questions. CONTACT YOUR PRIMARY CARE PROVIDER if you experience any of the following: Shortness of breath or difficulty breathing Fevers or chills Feeling tired with normal activity or experiencing dizziness or fainting Difficulty following your treatment plan, or difficulty taking medications CALL 911 OR GO TO THE EMERGENCY DEPARTMENT if you experience any of the following: Severe abdominal pain or nausea/vomiting Severe chest pain, or chest pain that radiates (moves) to your jaw or arm Sudden, severe shortness of breath or difficulty breathing Thank you for allowing us to participate in your care. Pending Studies at Discharge: No Stand-Alone Forms: [employer], Smoking Cessation Medications and DC Order Prescriptions: New doxycycline hyclate 100 mg capsule 100 mg PO BID Qty: 10 0RF Continued multivitamin [Multiple Vitamins] Tablet 1 tab PO QAM Patient Comments: 02/15- otc unable to verify pantoprazole [Protonix] 40 mg tablet,delayed release (DR/EC) 40 mg PO BID 90 Days Qty: 180 2RF ferrous sulfate 325 mg (65 mg iron) tablet 325 mg PO Q OTHER DAY Qty: 60 3RF Tums Extra Strength Smoothies 300 mg (750 mg) Tablet,Chewable 600 mg PO BID PRN (Reason: Heartburn) Patient Comments: 02/15- otc unable to verify Discontinued peg 3350-electrolytes [Golytely] 236-22.74-6.74 -5.86 gram recon soln 240 ml PO Q10M Qty: 4000 0RF Rx Instructions: Take per split dose instructions No Action (DME) compr.stocking,knee,long,small Misc See Rx Instructions .Route Qty: 12 0RF Rx Instructions: As directed (DME) Wheeled Walker Misc See Rx Instructions .Route Qty: 1 0RF Rx Instructions: As directed with a seat Discharge Orders: Discharge Order (Routine); Ordered 03/07/25 Ordered By: Jocelyn Bergeron/Other Patient Handouts: Cellulitis Dc Admission Data Admit Date/Time: 03/05/25 12:51 Attending Provider: Michael Hunt Admit Provider: Michael Hunt Primary Care Provider: Bill Stanton Other Providers: Johnny Moncada; [facility],Home Health Other Interventions: Discharge Summary Assessment (RN) Last Done: 03/07/25 09:42 Hospital Stay Data Consultations 03/05/25 12:22 ED Decision to Admit Stat Diagnostic Imagining Performed 03/05/25 12:51 US venous doppler LE BI Urgent Pending Results Patient Have Any Pending Studies at Discharge: No Discharge Instructions Given to Patient (Per Discharging Provider) Ms. Foy, You were recently hospitalized for cellulitis of your lower extremities. You were treated with IV antibiotics with improvement. Medications: Your medication list has been reviewed and reconciled upon discharge to ensure accuracy and continuity of care. An updated list of all your medications is included with your hospital discharge paperwork. Please review this list closely, and make note of any changes. Please take Doxycycline twice daily for 5 days for ongoing treatment of your cellulitis. Please take with food to avoid GI upset. Your first dose will be this evening, 03/07. Take your medications as instructed; do not skip a dose of your medicines. Make sure all of your doctors know every medicine you are taking (including brnb-tts-tkapiia medicines, vitamins, and supplements). Call your primary care provider before taking any new medicines (including over- the-counter medicines, vitamins, and supplements), because some of these may interact with your current medications, or may make your symptoms worse. Tell your primary care provider if you cannot afford your medications. Activity: You can do normal everyday activities as your body allows. Take rest breaks if you feel tired. Do not overexert. Stop activity if you have pain, shortness of breath or feel dizzy. Follow-up appointments: Make an appointment with your primary care physician within one week of discharge. A copy of this summary will be sent to them. Every time you see your primary care physician, or any other doctor, bring your medication list, and a list of questions. CONTACT YOUR PRIMARY CARE PROVIDER if you experience any of the following: Shortness of breath or difficulty breathing Fevers or chills Feeling tired with normal activity or experiencing dizziness or fainting Difficulty following your treatment plan, or difficulty taking medications CALL 911 OR GO TO THE EMERGENCY DEPARTMENT if you experience any of the following: Severe abdominal pain or nausea/vomiting Severe chest pain, or chest pain that radiates (moves) to your jaw or arm Sudden, severe shortness of breath or difficulty breathing Thank you for allowing us to participate in your care. Supervising Physician Co-Signing Physician Notes The patient was not seen by me. The chart was reviewed. Case discussed with RENETTA Stover. Agree with assessment and plan Total Time Total Time Spent Total Time Spent (In Minutes): 45 Total Time Includes: Examination of the Patient, Discharge Planning and Medication Reconciliation Coding Level of Care Code 94693 INP/OBS DISCH >30 MIN Diagnoses Cellulitis of right lower leg L03.115 Left leg cellulitis L03.116 Ambulatory dysfunction R26.2 Chronic heart failure with preserved ejection fraction (HFpEF) I50.32 Emphysema lung J43.9 Anemia D64.9
[2025-03-07 13:27] VITALS: BP 120/62; PULSE 81; RESP 23; O2SAT 95
== END 2025-03-07 15:31 | disposition home health service (06) | DRG 603 ==
LOC: SUATTDRO → ED 09:53 → 3E 12:51 → INTOOBSV 12:51 → 3E 15:00